=== PATIENT | male | born 1945 | race Caucasian/White ===

== ENCOUNTER 2019-06-09 19:22 | Observation (INO) | payer OTHER, MEDICARE, SELFPAY ==
[2019-06-09] VITALS (7 sets, daily range): BP systolic 99–131; BP diastolic 58–74; PULSE 62–71; RESP 14–17; TEMP 36.3–37.7; O2SAT 96–98
--- NOTE | 2019-06-09 19:30 | DI.RAD_ITS ---
EXAM: XR CHEST 2V PA LATERAL CLINICAL HISTORY: chest pain TECHNIQUE: 2D digital imaging was performed. COMPARISON: No exams were available for comparison FINDINGS: The heart is not enlarged. The lungs are clear and well expanded. No pleural effusion seen. Mediastin al contours appear intact. IMPRESSION: Normal chest
--- NOTE | 2019-06-09 19:58 | W.ED.GENAD ---
Discharge Plan Disposition Patient Disposition: [facility] INPATIENT Condition: Stable Discharge Details Chief Complaint: Chest Pain Clinical Impression: Chest pain, Gout Primary Care Provider: Unknown,Unknown ED Provider: Annette Yee Home Meds and New Rx's Prescriptions: No Action cyclobenzaprine 10 mg Tablet 10 mg PO TID PRNRF: 0 atorvastatin 80 mg Tablet 80 mg PO DAILY RF: 0 methylprednisolone 4 mg Tablet 4 mg PO DAILY RF: 0 cyanocobalamin (vitamin B-12) [Vitamin B-12] 1,000 mcg Tablet 1,000 mcg PO DAILY RF: 0 clopidogrel 75 mg Tablet 75 mg PO DAILY RF: 0 tamsulosin 0.4 mg Capsule 0.4 mg PO DAILY RF: 0 nitroglycerin 0.4 mg Tablet, Sublingual 0.4 mg SUBLINGUAL Q5M PRNRF: 0 omeprazole 20 mg Capsule,Delayed Release(Dr/Ec) 20 mg PO DAILY RF: 0 allopurinol 300 mg Tablet 300 mg PO DAILY RF: 0 colchicine 0.6 mg Tablet 0.6 mg PO DAILY RF: 0 Medical Decision Making Is a 74-year-old patient presenting for complaints of chest pain. Patient's history is predominantly provided by the as patient is pleasantly demented. Patient had chest pain throughout the better portion of the day beginning in the late morning. reports grimacing and clutching the left side of his chest. Patient grimacing throughout most of the day. Patient's pain did relieve for approximately 30 minutes in the afternoon. After pain returned did provide a nitroglycerin tablet, second tablet 5 minutes later neither relieving of pain. Patient denies any obvious radicular pain to the neck or arm. No back complaints. Patient was not vomiting, denies nausea currently. Patient was eating and drinking throughout the day but did not eat dinner this evening. Patient did not have any evident shortness of breath or increase in respiratory effort per the . No recent cough. No fevers or chills reported. Has been urinating and moving bowels normally. Patient is status post 3 stents placed on March 03 of this year and [facility]. Per the patient has had multiple emergency room visits to the [place] for complaints of chest pain. Patient has not been admitted for these chest pain complaints but discharged home to follow-up with cardiology. Patient has not had subsequent cardiology follow-up due to Covid virus and appointments being canceled. Patients reports he was to have a stress test but again this is been delayed. No evident diaphoresis. No obvious syncope or fainting. No clear unsteady gait. does report currently patient has left elbow swelling and right foot pain consistent with previous gout flares. Patient has been compliant with allopurinol. They did speak with patient's PCP Dr. Dumont of [place] who called in colchicine yesterday. Patient has been compliant with all of his medications and did take all of his medication doses today including his Plavix but did not take his aspirin as he typically doses this in the evening. Patient arrives via private car. Initial evaluation of the patient reveals normal vital signs. Initial temperature noted of 37.7 however when repeated 37.3. No reported fevers or chills at home. On physical exam patient is well-appearing. Patient did occasionally grimace with pain and indicates left side of his chest as site of pain and describes mild pressure. Patient is also complaining of left elbow and right foot pain. Both right elbow and foot are erythematous swollen and tender to the touch. Patient has a benign cardiac exam at this time, no murmurs, regular rate and rhythm. No JVD. No distal edema present. No rales or breath sound changes. Easy and unlabored breathing noted. Abdominal exam is benign. No abdominal pain with palpation. Bowel sounds are present all 4 quadrants. Obvious distention. Initial EKG reveals a heart rate of [address] sinus [address] No [address] segment changes. QTC of 423. This was reviewed with Dr. Phong Membreno. Initial labs including troponin and magnesium ordered as well as chest x-ray. Uric acid ordered in addition due to clinical suspicion of gout. Notes obtained from [place] for previous ER visits. When comparing today's [facility] there is a mild drop in patient's H&H. On his labs 04/20/19 patient had an H&H of 14.6 and 44.5 today patient's H&H are noted to be 11.4 and 34.5. Also of note kidney function is mildly worsened compared to previous labs. Patient was previously treated for chest pain during gout flare with colchicine, I am unsure if this was an effective treatment as patient had persistent chest pain complaints thereafter although patient has evidence of gouty flare at this time patient has no obvious pericarditis findings on his EKG. [facility] noted atypical chest pain. Patient's initial troponin is normal. Reevaluation of the patient reveals patient in no apparent distress. Although history is somewhat limited from this patient he has had multiple emergency room visits recently for chest pain. Patient was due to have outpatient cardiac follow-up which has been delayed due to Covid virus including stress testing per his . Given patient's recent MA with stent placement in February, intermittent chest pain complaints, grimacing chest pain noted today despite normal EKG and initial troponin patient's heart score is moderate and I will recommend admission at this time for stress testing. I did speak with the regarding her intentions and she is most comfortable with admission to the hospital at this time for further evaluation as patient has had intermittent and persistent chest pain complaints multiple ER visits and no identifiable cause of his chest pain. [facility] who [facility] admission to [facility]. Spoke with hospital regarding patient's admission. He will evaluate patient in the emergency room. Spoke with patient's as there is no noted CODE STATUS on patient's chart. She reports they have not filled out the CODE STATUS paperwork and at this time she intends for the patient to be a full code. HPI General Date/Time Provider Initiated Documentation: 06/09/19 19:25. HPI Narrative: This is a 74-year-old patient presenting to the emergency room for chest pain. Patient had left-sided chest pain which began this afternoon, did relieve for approximately 30 minutes then returned. Patient reports sharp left-sided chest pain. Patient denies any obvious radiating pain to neck or arm. Patient denies nausea, vomiting, dizziness or diaphoresis. Patient's history is primarily obtained per the as the patient has significant dementia. Patient reportedly had 3 stents placed in February on the at [facility] This [facility] who has been evaluated 3-4 times since his stents were placed for intermittent chest pain which per the is reportedly similar to today. Patient grimacing when experiencing chest pain. Per patient has had no significant increase in respiratory effort, cough or fevers. Patient denies any difficulty breathing or shortness of breath at this time. Of note patient has significant gout for the last several weeks. He had gout in his left knee which improved now has gout in his right great toe as well as his right elbow. Both his elbow and toe are erythematous and swollen obviously tender to the touch. Patient has a limping gait due to gout in his lower extremity. PCP did call in prescriptions for colchicine and patient has been compliant with allopurinol. Per his but otherwise appears steady and has no coordination changes. Speech clear and unchanged per . Patient did take all of his daily medications with the exception of his evening aspirin. does report that she gave nitro 0.4 mg 5 minutes apart x2 at approximately 4-4 30 this afternoon with no relief or effect on his chest pain. Since his stent placement in February patient has undergone both EKG and echo for complaints of his chest pain. Related Data Home Medications Medication Instructions Recorded Confirmed allopurinol 300 mg PO DAILY 06/09/19 06/09/19 atorvastatin 80 mg PO DAILY 06/09/19 06/09/19 clopidogrel 75 mg PO DAILY 06/09/19 06/09/19 colchicine 0.6 mg PO DAILY 06/09/19 06/09/19 cyanocobalamin (vitamin B-12) 1,000 mcg PO DAILY 06/09/19 06/09/19 [Vitamin B-12] cyclobenzaprine 10 mg PO TID PRN 06/09/19 06/09/19 methylprednisolone 4 mg PO DAILY 06/09/19 06/09/19 nitroglycerin 0.4 mg SUBLINGUAL Q5M PRN 06/09/19 06/09/19 omeprazole 20 mg PO DAILY 06/09/19 06/09/19 tamsulosin 0.4 mg PO DAILY 06/09/19 06/09/19 Allergies Allergy/AdvReac Type Severity Reaction Status Date / Time No Known Allergies Allergy Unverified 06/09/19 19:54 General Stated Complaint: Chest Pain MIGNON: 2 Review of Systems All systems reviewed & are unremarkable except as noted in HPI and below Constitutional Constitutional: Denies chills, Denies fatigue, Denies fever(s), Denies headache(s) and Denies malaise ENT Ears, Nose, Mouth, and Throat: Denies headache(s) Cardiovascular Cardiovascular: Reports chest pain, Denies diaphoresis, Denies syncope, Denies radiating jaw, neck or arm pain and Denies dyspnea Respiratory Respiratory: Denies cough, Denies dyspnea and Denies wheezing Gastrointestinal Gastrointestinal: Denies abdominal pain, Denies diarrhea, Denies nausea and Denies vomiting Neurologic Neurologic: Denies syncope and Denies headache(s) Endocrine Endocrine: Denies fatigue Allergic/Immunologic Allergic/Immunologic: Denies wheezing [facility] Social History Smoking/Tobacco Use Status: Never Alcohol Intake: never Substance use type: does not use Do you feel safe at home: Yes Do you feel safe in your relationship?: Yes Exam Narrative Exam Narrative: CONST: Healthy appearing patient. Well hydrated. Alert. Patient does intermittently grimace HENMT: Head nomocephalic, normal to inspection. Atraumatic. Hearing grossly normal. External ear canal no erythema or swelling. TM normal bilaterally. Nose normal to inspection. No rhinnorhea. Normal facial exam. Oral mucosa normal. Tounge normal. Dentition normal. Normal posterior oropharynx. Uvula midline. EYES: General normal appearance. Alignment normal. Eyelids normal. Conjunctiva normal. Sclera normal. PERRL. NECK: Normal visual inspection. FROM. No lymphadenopathy. Trachea midline. No Midline tenderness. CHEST: Normal insepection of the chest. No pain elicited with palpitation of chest RESP: Normal respiratory effort. Speaking full sentences. No cough. No wheezing. No retractions. Clear to auscaltation. Breath sound equal and present bilaterally. CARDIO: No JVD. Normal PMI. Regular Rate. Regular Rhythm. Normal peripheral pulses. GI: Normal inspection of abdomen. No distension. Soft. Nontender. Bowel sounds present in all 4 quadrants. No rebound. No gaurding. MUSCULOSKELETAL: Normal Gait. Distal neurovascularly intact. Sensation intact distally. Erythema and swelling noted focally around the left elbow with moderate tenderness, limited range of motion due to pain. No significant elbow effusion. Skin marked for future comparison. Erythema extends beyond the elbow joint into the distal upper arm and proximal forearm. Faint erythema, not well demarcated. mild warmth. Erythema mild warmth and mild swelling noted to the right base of the great toe. Both consistent with gout. Erythema of left knee with mild effusion. Nothing to indicate septic joint of the knee. SKIN: Normal. Dry. No rashes. See above NEURO: Alert and awake. Speech clear. PSYCH: Normal affect. Cooperative. Course Vital Signs Vital signs: Vital Signs Temperature 37.7 C H 06/09/19 19:35 Pulse 70 06/09/19 19:35 Respiratory Rate 16 06/09/19 19:35 Blood Pressure 131/74 06/09/19 19:35 Pulse Oximetry 96 06/09/19 19:35 Temperature 37.3 C 06/09/19 19:40 Temperature Source Oral 06/09/19 19:40 Pulse 70 06/09/19 19:35 Respiratory Rate 14 06/09/19 19:37 Respiratory Effort 06/09/19 19:37 Respiratory Depth Normal 06/09/19 19:37 Respiratory Pattern Normal 06/09/19 19:37 Blood Pressure 131/74 06/09/19 19:35 Pulse Oximetry 96 06/09/19 19:35 Oxygen Delivery Method Room Air 06/09/19 19:35 Oxygen Flow Rate 0 06/09/19 19:35 Pain Level 4 06/09/19 19:29
[2019-06-09] MEDS: Aspirin 81 MG CHEW (20:06)
--- NOTE | 2019-06-09 20:13 | NUR.NOTE ---
Hx of stents placed at [facility] in FEB, per , pt has had intermittent CP since they were placed. [facility] and a stress since they were placed. Today pt reported chest pain, describes as heaviness, gave him nitro x 2. Hx of alzheimers and gout. Pt given Rx for colchicine and methylprednisolone today, has not yet taken. Redness and swelling to left elbow, right foot. Difficult stick, #20 to LAC, labs drawn. SR on monitor. Denies cough, SOB, N/V, fevers.
[2019-06-09 20:24] LABS: ALT 29 U/L (16-63); AST 24 U/L (15-37); Alkaline Phosphatase 82 U/L (46-116); Anion Gap 10.2 mmol/L (3-11); BUN 24 mg/dL (7-18); Bilirubin, Total 0.8 mg/dL (0.2-1.0); CO2 25.8 mmol/L (21.0-32.0); CREATININE 1.52 mg/dL (0.70-1.30); Calcium 9.1 mg/dL (8.5-10.1); Chloride 101 mmol/L (98-107); Estimated GFR 44.93 (mL/min/1.73m2); Glucose 104 mg/dL (74-106); Potassium 3.4 mmol/L (3.5-5.1); Sodium 137 mmol/L (136-145)
[2019-06-09 20:27] LABS: Troponin I < 0.05 ng/Ml (<0.06)
[2019-06-09 20:34] LABS: Abs Immature Grans 0.01 k/cumm (0.0-0.09); Absolute Basophil Count 0.01 k/cumm (0.0-0.2); Absolute Lymphocyte Count 0.96 k/cumm (1.2-3.4); Absolute Monocyte Count 0.94 k/cumm (0.11-0.7); Absolute Neutrophil Count 4.34 k/cumm (1.2-6.7); Basophils % 0.2; Eosinophils % 1.6; HCT 34.5 % (40.0-50.0); HGB 11.4 g/dL (13.5-17.5); Immature Grans % 0.2 %; Lymphocytes % 15.1; Mean Corpuscular Volume 93.8 fL (80-95); Mean Platelet Volume 9.8 fL (8.0-11.0); Monocytes % 14.8; Neutrophils % 68.1; Platelet Count 249 x1000/uL (130-400); RBC 3.68 m/cumm (4.50-6.00); RBC Distribution Width 12.3 % (11.8-14.1); White Blood Cell Count 6.36 k/cumm (4.4-10.8)
--- NOTE | 2019-06-09 20:53 | DI.VRAD_ITS ---
PROCEDURE INFORMATION: Exam: XR Chest, 2 Views Exam date and time: 06/09/2019 8:46 PM Age: 74 years old Clinical indication: Other: Chest pain TECHNIQUE: Imaging protocol: XR of the chest Views: 2 views. COMPARISON: No relevant prior studies available. FINDINGS: Lungs: Lungs are adequately inflated and symmetric. No focal consolidation or pulmonary edema. Pleural space: No pleural effusion. No pneumothorax. Heart/Mediastinum: Cardiomediastinal contours within normal limits. Bones/joints: No acute osseous finding. Scattered senescent changes of the osseous structures. IMPRESSION: No acute cardiopulmonary finding. Dictated and Authenticated by: Adolfo Culp MD. Ordering:CAROLYN Bryant MD
--- NOTE | 2019-06-09 22:00 | HPE_ITS ---
Date of service: 06/09/19 Time of Service: 22:00 Assessment and Plan Assessment and plan (1) Chest pain: Status: Acute Assessment and plan: CP. Unclear, and dementia makes evaluation yet more difficult. Certainly has known CAD but no evidence today (or on several recent ER visits) of ACS. Probably best to try to stress but my sense is that this is low probability ACS. I do note the low grade fever and inflammatory changes of the elbow. I think gout is unlikely given uric acid of 4.0, and appropriate prophylaxis. Will treat as cellulitis, doubt septic joint without effusion. History of Present Illness History of Present Illness Chief Complaint: CP Narrative: 74 male with dementia and h/o CAD, s/p LAD stent 03/08. [facility]. Reportedly a stress test was to be scheduled but has been delayed. In any case comes to ER tonight with vague story of CP, no apparent relation to activity, no associated symptoms and no radiation. In ER findings of note for negative CXR, normal EKG and negative troponin. Admitted to complete r/o and for possible stress test. Additional findings of low grade fever (37.7 then 37.3), normal white count and area of erythema overlying left elbow which states (to ER) has been ascribed to gout. Note uric acid of 4.0. Review of Systems All systems reviewed & are unremarkable except as noted in HPI and below PFSH Social History Smoking/Tobacco Use Status: Never Alcohol Intake: never Substance use type: does not use Do you feel safe at home: Yes Do you feel safe in your relationship?: Yes Meds Home Medications and Allergies Home Medications Medication Instructions Recorded Confirmed Type allopurinol 300 mg PO DAILY 06/09/19 06/09/19 History atorvastatin 80 mg PO DAILY 06/09/19 06/09/19 History clopidogrel 75 mg PO DAILY 06/09/19 06/09/19 History colchicine 0.6 mg PO DAILY 06/09/19 06/09/19 History cyanocobalamin (vitamin B-12) 1,000 mcg PO DAILY 06/09/19 06/09/19 History [Vitamin B-12] cyclobenzaprine 10 mg PO TID PRN 06/09/19 06/09/19 History methylprednisolone 4 mg PO DAILY 06/09/19 06/09/19 History nitroglycerin 0.4 mg SUBLINGUAL Q5M PRN 06/09/19 06/09/19 History omeprazole 20 mg PO DAILY 06/09/19 06/09/19 History tamsulosin 0.4 mg PO DAILY 06/09/19 06/09/19 History Allergies Allergy/AdvReac Type Severity Reaction Status Date / Time No Known Allergies Allergy Unverified 06/09/19 19:54 Exam Narrative Exam Narrative: 108/63, 70, 16, 37.3, 98% RA. HEENT atraumatic; neck supple; l ungs clear; heart RRR w/o MRG, no chest wall tenderness or pain with resisted adduction of LUE; abdomen soft and NT; extremities trace pedal edema, pulse 2+/=, there is faint erythema overlying left elbow to total extent of about 8 cm, with accompanying warmth and painful PROM; neuro Ox1, moves all 4s. Results Labs Result diagrams: 06/09/19 19:54 06/09/19 19:54 Labs: Laboratory Results - last 24 hr 06/09/19 06/09/19 06/09/19 19:54 19:54 19:59 WBC 6.36 RBC 3.68 L Hgb 11.4 L Hct 34.5 L MCV 93.8 MCH 31.0 MCHC 33.0 RDW 12.3 Plt Count 249 MPV 9.8 Immature Gran % 0.2 Neutrophils % 68.1 Lymphocytes % 15.1 Monocytes % 14.8 Eosinophils % 1.6 Basophils % 0.2 Absolute Neutrophils 4.34 Absolute Lymphocytes 0.96 L Absolute Monocytes 0.94 H Absolute Eosinophils 0.10 Absolute Basophils 0.01 Sodium 137 Potassium 3.4 L Chloride 101 Carbon Dioxide 25.8 Anion Gap 10.2 BUN 24 H Creatinine 1.52 H Estimated GFR/1.73 m2 44.93 Glucose 104 Uric Acid 4.0 Calcium 9.1 Magnesium 2.0 Total Bilirubin 0.8 AST 24 ALT 29 Alkaline Phosphatase 82 Troponin I < 0.05 Total Protein 8.0 Albumin 3.0 L Last Vital Signs Temp 37.3 C 06/09/19 19:40 Pulse 70 06/09/19 21:54 Resp 16 06/09/19 21:54 BP 108/63 06/09/19 21:54 Pulse Ox 98 06/09/19 21:54 COVID-19 Screening Recent travel in the [place] within the last 8 weeks?: No Recent out of the country travel within the last 8 weeks?: No Exposure or possible exposure to illness during travel?: No Had IN PERSON contact w/suspected or confirmed C-19 person: No Have you had the following symptoms in the past few days?: No
[2019-06-09 22:51] LABS: Troponin I < 0.05 ng/Ml (<0.06)
[2019-06-09] MEDS: Cephalexin 500 MG CAP PO (23:38)
[2019-06-10 01:42] LABS: Bilirubin Negative (Negative); Blood Small (Negative); Clarity Clear (Clear); Glucose Negative (Negative); Ketones Negative (Negative); Leukocyte Esterase Negative (Negative); Nitrite Negative (Negative); Specific Gravity 1.025 (1.005-1.025); Urobilinogen 0.2 EU/dL (Up TO 0.2)
[2019-06-10 01:45] LABS: Epithelial Cells Few HPF (Negative); WBC Negative HPF (0-5)
[2019-06-10 01:46] LABS: Bacteria Rare HPF (Negative); C & S Indicated? No; Casts Negative LPF (Negative); Crystals Negative HPF (Negative); Mucus Negative (Negative)
[2019-06-10 06:57] LABS: Troponin I < 0.05 ng/Ml (<0.06)
[2019-06-10 07:35] VITALS: BP 115/67; PULSE 63; RESP 18; TEMP 37.2; O2SAT 97
[2019-06-10] MEDS: Tamsulosin 0.4 MG CAPCR PO (08:55)
[2019-06-10] MEDS: Cephalexin 500 MG CAP PO (08:55)
[2019-06-10] MEDS: Colchicine 0.6 MG TAB PO (08:55)
[2019-06-10] MEDS: Omeprazole 20 MG CAPCR PO (08:55)
[2019-06-10] MEDS: Clopidogrel 75 MG TAB PO (08:55)
[2019-06-10] MEDS: methylPREDNISolone 4 MG TAB PO (08:55)
[2019-06-10 09:51] LABS: C-Reactive Protein 8.13 mg/dL (0.0-0.3)
[2019-06-10 10:03] LABS: ESR 65 mm/hr (1-20)
--- NOTE | 2019-06-10 10:28 | OCONE_ITS ---
Date of service: 06/10/19 Time of Service: 10:28 History of Present Illness History of Present Illness Chief Complaint: Left elbow pain Narrative: Chris is a 74-year-old who presented to the emergency department yesterday with a chief complaint of chest pain. He does have dementia and the majority of the history is provided by the . This history was obtained mostly from previous notes as his reliability with history was minimal. Chris does report having pain and swelling to the left elbow. He is unclear if he has had gout in his elbow before but does report having gout in the toes in the knees. He also feels that he is having gout in his right great toe. He takes allopurinol at baseline. Per the previous notes and Chris, it has been about a week or so of increasing left elbow pain, but he is uncertain when it exactly st arted. He denies fevers or chills. He has had difficulties moving the left elbow. He reports knee pain in the right knee although notes state that the left knee was most involved before. He denies any significant pain of the right great toe at this time. He previously had cardiac stents placed in February of this year and [facility] [place] [facility]. He is awaiting a stress test and cardiology consult. His uric acid was normal in the emergency department. Both his sed rate and CRP are elevated at 60 and 8 respectively. He is afebrile. He denies trauma. He denies skin breakdown or lacerations or abrasions. He denies any sick contacts or recent illness. His PCP just started him on colchicine as well. Consults Consult date: 06/10/19 Requesting physician: [facility] Consult Reason Left elbow pain, and question of infection Assessment and Plan Assessment and plan (1) Cellulitis of left elbow: Status: Acute Assessment and plan: Chris is a 74-year-old who has notable swelling, erythema, and pain of the left elbow. This does overlie the olecranon bursa however, I do not feel a fluctuant olecranon bursitis. This could be a spectrum of suppurative olecranon bursitis versus a localized cellulitis and it would be difficult to know which 1 is the primary source. Nevertheless, I do not palpate any effusion. He does allow pronation supination and some gentle motion of the elbow without significant pain. An infected elbow is possible, although very unlikely. He does have this history of gout which I think is active in the toe and has been active in the knees but I do not think is responsible for the current process of the left elbow. Without a palpable fluctuant area or a palpable effusion, I do not think we need to aspirate quite yet. The most direct way to aspirate is lateral and this is right where he has the majority of his induration and erythema. I would hate to go through an active cellulitic process and then into a noninvolved joint. He was started on Keflex which is a reasonable antibiotic choice for the most common organisms. However, given that he is a current inpatient, I would transition him to an IV antibiotic simply for its better efficacy and availability while he is here as an inpatient. We may use compression as well as ice for the left elbow. The elbow should be padded so there is no hard contact around the olecranon or the prominences of the elbow, especially given his slight stature. He does have an elevated CRP and sed rate which may be helpful for trending in the near future. At this point, I will reexamine him in the morning and if we feel there is been no progress or any worsening, elbow aspiration may be attempted at that time, although Chris would prefer to avoid that. (2) Gout: Status: Acute Assessment and plan: He has a history of gout and likely has a gouty process going on for the right toe. I do not see any involvement of the knee. We should continue with the allopurinol but also consider increasing some type of anti-inflammatory component. He has been started on methylprednisolone in the recent history and we could go up on this dosing to provide him an acute steroid treatment. An anti-inflammatory, such as ketorolac or naproxen, could be administered but with caution given his history of coronary artery disease as well as his acute chest complaints. I will defer this decision to the hospitalist team. Qualifiers: Gout site: toe Gout etiology: unspecified cause Chronicity: chronic Laterality: right Presence of tophus: without tophus Qualified Code(s): [id number].[id number] - Chronic gout, unspecified, without tophus (tophi) Review of Systems All systems reviewed & are unremarkable except as noted in HPI and below (But limited by dementia) [facility] Medical History (Updated 06/10/19 @ 10:42 by Son Augustin MD) BPH (benign prostatic hyperplasia) (Chronic) CAD (coronary artery disease) (Chronic) Chest pain (Acute) Dementia (Chronic) GERD (gastroesophageal reflux disease) (Chronic) Gout (Acute) Surgical History (Updated 06/10/19 @ 10:37 by Son Augustin MD) Stented coronary artery (Acute) Social History Smoking/Tobacco Use Status: Never Alcohol Intake: never Substance use type: does not use Do you feel safe at home: Yes Do you feel safe in your relationship?: Yes Exam Narrative Exam Narrative: Evaluation of the left arm demonstrates an area of induration and erythema over the posterior aspect of the elbow. There is an area marked on the arm itself which seems to be much wider than the actual area of erythema. T his area is focused over the posterior aspect of the elbow, primarily involving the olecranon and the areas around it. There is no area of fluctuance which I can palpate. There is no crepitus with palpation. There is no pain away from this area either distally into the forearm and wrist and hand or proximally into the upper arm and shoulder. No palpable adenopathy. Further evaluation of the left arm is really limited by his lack of cooperation with the examination. He stays relatively stiff and not cooperative with passive motion testing. Active motion of the left elbow does cause pain. However, pronation and supination does not seem to bother him. Passively he allows me to pronate and supinate the left elbow with minimal discomfort. He also allows me to passively extend the left elbow, when he is not counteracting me, and this does not seem to cause pain. Passive flexion causes pain. All this pain is reported posteriorly although he has a very difficult time specifying where. Manual palpation of the soft spot laterally has pain given overlying induration but I do not feel any effusion. Palpation of the joint surface medially and anteriorly, which is possible given his thin body habitus, does not reveal any effusion. No significant pain with palpation of the joint lines. The skin overlying the elbow and of the left arm shows no defects such as abrasions or lacerations. Palpable radial pulse. Sensation intact light touch over the median, radial, ulnar nerves. Evaluation of the right leg shows no erythema. There is some swelling to the right great toe. There is no effusion of the right knee. No pain to palpation of the right knee. Gentle passive and active range of motion of the right knee does not elicit any pain. Const General: cooperative, healthy appearing, comfortable and no acute distress Nutritional Appearance: average body habitus Orientation: alert and awake Psych Appearance: grossly normal Mood: congruent mood Attitude: cooperative Results Last Vital Signs Temp 37.2 C 06/10/19 07:35 Pulse 63 06/10/19 07:35 Resp 18 06/10/19 07:35 BP 115/67 06/10/19 07:35 Pulse Ox 97 06/10/19 07:35 Labs Result diagrams: 06/09/19 19:54 06/09/19 19:54 Labs: Laboratory Results - last 24 hr 06/09/19 06/09/19 06/09/19 19:54 19:54 19:59 WBC 6.36 RBC 3.68 L Hgb 11.4 L Hct 34.5 L MCV 93.8 MCH 31.0 MCHC 33.0 RDW 12.3 Plt Count 249 MPV 9.8 Immature Gran % 0.2 Neutrophils % 68.1 Lymphocytes % 15.1 Monocytes % 14.8 Eosinophils % 1.6 Basophils % 0.2 Absolute Neutrophils 4.34 Absolute Lymphocytes 0.96 L Absolute Monocytes 0.94 H Absolute Eosinophils 0.10 Absolute Basophils 0.01 ESR Sodium 137 Potassium 3.4 L Chloride 101 Carbon Dioxide 25.8 Anion Gap 10.2 BUN 24 H Creatinine 1.52 H Estimated GFR/1.73 m2 44.93 Glucose 104 Uric Acid 4.0 Calcium 9.1 Magnesium 2.0 Total Bilirubin 0.8 AST 24 ALT 29 Alkaline Phosphatase 82 Troponin I < 0.05 C-Reactive Protein Total Protein 8.0 Albumin 3.0 L Urine Color Urine Clarity Urine pH Ur Specific [place] Urine Protein Urine Ketones Urine Blood Urine Nitrite Urine Bilirubin Urine Urobilinogen Ur Leukocyte Esterase Urine RBC Urine WBC Ur Epithelial Cells Urine Crystals Urine Bacteria Urine Casts Urine Mucus Ur Culture Indicated? Urine Glucose 06/09/19 06/10/19 06/10/19 22:30 01:15 06:03 WBC RBC Hgb Hct MCV MCH MCHC RDW Plt Count MPV Immature Gran % Neutrophils % Lymphocytes % Monocytes % Eosinophils % Basophils % Absolute Neutrophils Absolute Lymphocytes Absolute Monocytes Absolute Eosinophils Absolute Basophils ESR Sodium Potassium Chloride Carbon Dioxide Anion Gap BUN Creatinine Estimated GFR/1.73 m2 Glucose Uric Acid Calcium Magnesium Total Bilirubin AST ALT Alkaline Phosphatase Troponin I < 0.05 < 0.05 C-Reactive Protein 8.13 H Total Protein Albumin Urine Color Yellow Urine Clarity Clear Urine pH 5.0 Ur Specific [place] 1.025 Urine Protein 100 H Urine Ketones Negative Urine Blood Small H Urine Nitrite Negative Urine Bilirubin Negative Urine Urobilinogen 0.2 Ur Leukocyte Esterase Negative Urine RBC 5-10 H Urine WBC Negative Ur Epithelial Cells Few Urine Crystals Negative Urine Bacteria Rare Urine Casts Negative Urine Mucus Negative Ur Culture Indicated? No Urine Glucose Negative 06/10/19 06:03 WBC RBC Hgb Hct MCV MCH MCHC RDW Plt Count MPV Immature Gran % Neutrophils % Lymphocytes % Monocytes % Eosinophils % Basophils % Absolute Neutrophils Absolute Lymphocytes Absolute Monocytes Absolute Eosinophils Absolute Basophils ESR 65 H Sodium Potassium Chloride Carbon Dioxide Anion Gap BUN Creatinine Estimated GFR/1.73 m2 Glucose Uric Acid Calcium Magnesium Total Bilirubin AST ALT Alkaline Phosphatase Troponin I C-Reactive Protein Total Protein Albumin Urine Color Urine Clarity Urine pH Ur Specific [place] Urine Protein Urine Ketones Urine Blood Urine Nitrite Urine Bilirubin Urine Urobilinogen Ur Leukocyte Esterase Urine RBC Urine WBC Ur Epithelial Cells Urine Crystals Urine Bacteria Urine Casts Urine Mucus Ur Culture Indicated? Urine Glucose
--- NOTE | 2019-06-10 10:30 | DI.NM_ITS ---
APPROVED REPORT Exam: Pharmacologic Patient Location: In-Patient Room/Bed: Stress Nurse: Malgorzata Partida RN BMI: 0 Baseline Rhythm: Sinus Rhythm Comment: PVCs. Indications: Known CAD. Recurrent chest pain. LAD stent 02/2019. Medical History Medical History: CAD s/p [place], CAD s/p stent x3 Cardiac Medications: Atorvastatin. Clopidogrel. Nitroglycerin. Omeprazole. , Cardiac Risk Factors: Hyperlipidemia. CAD. LAD stent. Pretest Chest Pain Characteristics: Non-exertional Chest pain Exercise History: Indeterminate Lung Sounds: Clear to auscultation Heart Sounds: Regular Stress Test Details Test: Pharmacologic stress testing performed using 0.4 mg of regadenoson per 5 mL given IV over 10 s econds. Nuclear Acquisition: Rest Tc-99m/Stress Tc-99m 1 day Rest Isotope: Tc-99m Sestamibi. Dose: 11.0 Date: 06/10/2019 Injection Time: 1030 Stress Isotope: Tc-99m Sestamibi. Dose: 34.3 Date: 06/10/2019 Injection Time: 1235 HR Resting HR Supine: 69 bpm Max Heart Rate (APMHR): 145 bpm Target HR (85% APMHR): 123 bpm Max HR Achieved: 104 bpm % of APMHR: 71 Recovery HR: 98 bpm Comment: Regadenoson stress test. BP Resting BP Supine: 118/70 mmHg Max BP: 124/62 mmHg Recovery BP: 120/68 mmHg Comment: Regadenoson stress test. ECG Resting ECG: Sinus Rhythm Stress ECG: Sinus Rhythm Arrhythmia: VPC's Comment: Intermittent ventricular trigeminy. Frequent VPCs. Recovery ECG: Sinus Rhythm Recovery Arrhythmia: Frequent VPCs Clinical Stress Symptoms: Pt experienced no significant symptoms post Regadenoson injection. Stress ECG Conclusion 1. This is a pharmacological stress test. 2. The patient had no significant symptoms during the stress portion of this exam. 3. There is no evidence of ischemia on the ECG portion of this exam. Stress Test Summary STAGE HR BP Symptoms NOTES Supine 69 118/70 1 min post Lexiscan injection 104 120/60 3 min post Lexiscan injection 101 124/62 9 min post Lexiscan injection 100 120/68 MPI Conclusion The ejection fraction was 62% with stress. There were no wall motion abnormalities. Interpretation of the study is limited by significant bowel uptake. There is a small fixed perfusion defect of the inferior wall without any adriane-infarct ischemia.
--- NOTE | 2019-06-10 10:30 | PDOC.CMIN ---
- If Service Date Differs Date of service: 06/10/19 Time of Service: 10:30 Care Management Initial Assess REASON FOR HOSPITALIZATION:: Chest Pain PAST MEDICAL HISTORY/PAST SURGICAL HISTORY:: CAD PREVIOUS FUNCTIONAL STATUS/SOCIAL/FAMILY SUPPORTS:: Chris lives with his Jen and his son on [address] in [facility]. Chris has had dementia for the past 3 years and has been getting progressively worse according to Jen. He is a and usually gets his medical care at the [facility]. He is independent with ADLs and remains active. They receive no community services at this time. CURRENT FUNCTIONAL STATUS:: Chris was sitting up on the side of the bed when CM met with him. He was compalining of left knee pain and was observed rubbing it repeatedly. He also has pain in his right great toe and left elbow. Chris has dementia and was vague in his responses with CM. He was able to share where he lived and the fact that his son lives with him (confirmed by his ). He is scheduled to have a stress test today and may be discharged later. Has patient been provided with information about the portal?: No Did the patient sign up for the portal?: No (dementia) CODE STATUS:: Full Code INSURANCE COVERAGE / FINANCIAL ISSUES:: Medicare CURRENT HOME/COMMUNITY SERVICES/EQUIPMENT:: None currently [facility] POTENTIAL DISCHARGE NEEDS:: Follow up with PCP at the [facility] and possibly cardiology PATIENT/FAMILY EDUCATION NEEDS:: Discharge plan, limitations, follow up plan, Ask Me Three. TRANSPORTATION:: via private vehicle with family PLAN:: Chris will likely be discharged home with no new services. He will follow up with his provider at the [facility] and his discharge plan of care. CM will continue to support patient, family and discharge planning needs.
--- NOTE | 2019-06-10 10:34 | PHA.REVIEW ---
Pharmacy Admission Review - Admission Clinical Review (Last Reviewed 06/09/19 @ 22:08 by Mitesh Paul MD) Chest pain (Acute) No Known Allergies Allergy (Unverified 06/09/19 19:54) Height 6 ft Weight 81.5 kg Chest Pain, Left Elbow cellulitis - Comments Comments/Follow Ups: MPI stress test today, Orthopedic consult - Renal Dosing Renal Dosing: BUN 24 mg/dL (7-18) H 06/09/19 19:54 Creatinine 1.52 mg/dL (0.70-1.30) H 06/09/19 19:54 Medications needing adjustments: Reviewed (CrCl~46ml/min) List of meds needing interventions: No med adjustments - Anticoagulation Anticoagulation: Hgb 11.4 g/dL (13.5-17.5) L 06/09/19 19:54 Hct 34.5 % (40.0-50.0) L 06/09/19 19:54 Plt Count 249 x1000/uL (130-400) 06/09/19 19:54 Creatinine 1.52 mg/dL (0.70-1.30) H 06/09/19 19:54 DVT Prohphylaxis: Reviewed (None-will ask MD) Therapeutic Anticoagulation: N/A - Opiate Usage Evaluate Pain Scale/Pains Meds: N/A - Relevant Labs ESR 65 mm/hr (1-20) H 06/10/19 06:03 Sodium 137 mmol/L (136-145) 06/09/19 19:54 Potassium 3.4 mmol/L (3.5-5.1) L 06/09/19 19:54 Chloride 101 mmol/L (98-107) 06/09/19 19:54 Magnesium 2.0 mg/dL (1.8-2.4) 06/09/19 19:54 C-Reactive Protein 8.13 mg/dL (0.0-0.3) H 06/10/19 06:03 Electrolytes, C-Reactive P, ESR: Reviewed (Elevated Sed rate, C-reactive protein-oral steroids, colchicine for gout of Right toe, Potassium will need slight replacement) - DM Control DM Control: Glucose 104 mg/dL (74-106) 06/09/19 19:54 Insulin Dosing: N/A - Heart Failure/AR Heart Failure/AR: Troponin I < 0.05 ng/Ml (<0.06) 06/10/19 06:03 EF%, SHAYAN's, B-Blockers, Diuretics: N/A (no cardiac meds except Plavix, troponin negative x 3) - BP Control BP Control: Blood Pressure 115/67 Blood Pressure 124/69 Blood Pressure 124/69 If elevated: N/A - Qtc Review If Elevated: Reviewed (qtc 426) - IV to PO Switch IV Medications: Reviewed (Oral Cephalexin changed to IV Cefazolin today) - Home Meds Home Med List reviewed: Reviewed Relevent Home Meds Not ordered & why?: Allopurinol, Vit B-12, NTG SL-Vague description of chest pain, dementia - Comments Comments/Follow Ups: [facility] with dementia[facility], [facility] st[facility] Feb 2019, takes Plavix, History of gout in elbow/toes/knees. No Micro to evaluate at this time, no pain reported although nursing assessment does state pain to left elbow, slightly red and swollen. changed oral Cephalexin to IV Cefazolin. Allopurinol was ordered, then dc'd, he is on Colchicine. Extra dose of Methylprednisolone this morning. Watch for results of MPI Antibiotic Activity - Antibiotic Information Antibiotic Review Info: Treating Cellulitis-Cephalexin oral changed to IV Cefazolin, no Micro collected at this time
[2019-06-10] MEDS: Regadenoson 0.4 MG/5 ML SYR IVP (13:09)
--- NOTE | 2019-06-10 13:51 | W.PM.PROGNOT ---
Date of Service Date of service: 06/10/19 Time of Service: 08:00 Assessment and Plan Assessment and plan (1) Chest pain: Status: Acute Assessment and plan: No recurrence. Flat troponins. Stress test showing scar but no active ischemia. Medical management for further risk reduction compromised by bradycardia and hypotension. I am going to try starting low-dose beta-rica and monitor blood pressure and pulse response. Continue dual antiplatelet therapy and statin. (2) CAD (coronary artery disease): Status: Chronic Assessment and plan: Although he had stenting he continues to have significant residual disease. Management as above. (3) Cellulitis of left elbow: Status: Acute Assessment and plan: Gout versus cellulitis on the differential, less likely set bursitis or arthritis. Symptom treatment as suggested by Dr. Augustin with increased methylprednisolone. I prefer not to use NSAIDs given his heart disease. Mechanical treatment with compression and ice as needed. Continue antibiotics but switch to parenteral route and follow clinical response. (4) Gout: Status: Chronic Assessment and plan: Active in his toe, might be the issue with his left elbow as well. Continue allopurinol, colchicine and methylprednisolone. Monitor response. Qualifiers: Chronicity: chronic Gout etiology: unspecified cause Gout site: toe Laterality: right Presence of tophus: without tophus Qualified Code(s): [id number].9XX0 - Chronic gout, unspecified, without tophus (tophi) (5) Normocytic anemia: Status: Acute Assessment and plan: Mild. I am deferring work-up. This can be [facility] with [facility]. Recheck blood count tomorrow. (6) Hypokalemia: Status: Acute Assessment and plan: Mild and asymptomatic. Recheck labs tomorrow. Subjective Subjective Interval history since last seen: Mr. Anthony has no spontaneous complaints. When questioned about his elbow he acknowledges it is uncomfortable particularly if he moves it. Denies any further chest pain. History is not reliable because of his dementia. He does not know where he is or the date. He is not sure why he is here. [facility] records reviewed, three-vessel disease on coronary angiography February 2019 with drug-eluting stent to LAD lesion. Dual antiplatelet therapy initiated. He had been on long-acting oral nitrate, ARB and beta-rica prior to his PCI, but all medications besides the dual antiplatelet therapy were stopped because of low blood pressure and bradycardia. Limited records from the [facility] obtained, it looks like colchicine and methylprednisolone are standing medications for as needed use of flares of his known gout. He has not been agitated. He denies any abdominal pain or difficulty urinating but again history is unreliable. Exam Narrative Exam Narrative: Lying in bed is in no acute distress with his left elbow flexed and held against his side. He prefers not to move it. Telemetry has shown predominantly sinus rhythm but frequent PVCs. Neck veins are flat. Lungs clear. Mostly regular heart rhythm with occasional ectopic beat, no S3-S4 or murmur. Nontender abdomen with normal bowel sounds. He has no pitting edema at the ankles with good pulses. Left elbow has erythema on the extensor surface around the elbow area and extending distally. There is some induration on the extensor forearm. He has exquisite tenderness to palpation over the olecranon but no fluctuance and no effusion present. He has discomfort with my attempts at pronation supination and flexion extension with voluntary guarding but subsequent exam by Dr. Augustin showed better range of motion. Objective Objective Clinical Data: Abnormal lab results 06/09/19 06/09/19 06/10/19 Range/Units 19:54 19:54 01:15 RBC 3.68 L (4.50-6.00) m/cumm Hgb 11.4 L (13.5-17.5) g/dL Hct 34.5 L (40.0-50.0) % Absolute Lymphocytes 0.96 L (1.2-3.4) k/cumm Absolute Monocytes 0.94 H (0.11-0.7) k/cumm ESR (1-20) mm/hr Potassium 3.4 L (3.5-5.1) mmol/L BUN 24 H (7-18) mg/dL Creatinine 1.52 H (0.70-1.30) mg/dL C-Reactive Protein (0.0-0.3) mg/dL Albumin 3.0 L (3.4-5.0) g/dL Urine Protein 100 H (Negative) mg/dL Urine Blood Small H (Negative) Urine RBC 5-10 H (0-2) HPF 06/10/19 06/10/19 Range/Units 06:03 06:03 RBC (4.50-6.00) m/cumm Hgb (13.5-17.5) g/dL Hct (40.0-50.0) % Absolute Lymphocytes (1.2-3.4) k/cumm Absolute Monocytes (0.11-0.7) k/cumm ESR 65 H (1-20) mm/hr Potassium (3.5-5.1) mmol/L BUN (7-18) mg/dL Creatinine (0.70-1.30) mg/dL C-Reactive Protein 8.13 H (0.0-0.3) mg/dL Albumin (3.4-5.0) g/dL Urine Protein (Negative) mg/dL Urine Blood (Negative) Urine RBC (0-2) HPF Vital Signs Temperature 37.2 C 06/10/19 07:35 Temperature Source Temporal Artery Scan 06/10/19 07:35 Pulse 63 06/10/19 07:35 Pulse Rhythm Regular 06/10/19 11:13 Respiratory Rate 18 06/10/19 07:35 Respiratory Effort Non-Labored 06/10/19 11:13 Respiratory Depth Normal 06/10/19 11:13 Respiratory Pattern Normal 06/10/19 11:13 Blood Pressure 115/67 06/10/19 07:35 Pulse Oximetry 97 06/10/19 07:35 Oxygen Delivery Method Room Air 06/10/19 07:35 Oxygen Flow Rate 0 06/10/19 07:35 Pain Level 0 06/10/19 07:35 Intake & Output 06/09/19 06/10/19 06/10/19 23:59 11:59 23:59 Output Total 900 / 1200 300 / 1200 Balance -900 / -1200 -300 / -1200 Weight 81.5 kg Output: Urine 900 / 1200 300 / 1200 Other: Urine Color Light So Urine Appearance Clear Comment mixed with stool. Stool Size Large Stool Characteristics Soft Formed Brown Voiding Methods Toilet Laboratory Results WBC 6.36 k/cumm (4.4-10.8) 06/09/19 19:54 RBC 3.68 m/cumm (4.50-6.00) L 06/09/19 19:54 Hgb 11.4 g/dL (13.5-17.5) L 06/09/19 19:54 Hct 34.5 % (40.0-50.0) L 06/09/19 19:54 MCV 93.8 fL (80-95) 06/09/19 19:54 MCH 31.0 pg (27.0-33.0) 06/09/19 19:54 MCHC 33.0 g/dL (32.0-36.0) 06/09/19 19:54 RDW 12.3 % (11.8-14.1) 06/09/19 19:54 Plt Count 249 x1000/uL (130-400) 06/09/19 19:54 MPV 9.8 fL (8.0-11.0) 06/09/19 19:54 Immature Gran % 0.2 % 06/09/19 19:54 Neutrophils % 68.1 06/09/19 19:54 Lymphocytes % 15.1 06/09/19 19:54 Monocytes % 14.8 06/09/19 19:54 Eosinophils % 1.6 06/09/19 19:54 Basophils % 0.2 06/09/19 19:54 Absolute Neutrophils 4.34 k/cumm (1.2-6.7) 06/09/19 19:54 Absolute Lymphocytes 0.96 k/cumm (1.2-3.4) L 06/09/19 19:54 Absolute Monocytes 0.94 k/cumm (0.11-0.7) H 06/09/19 19:54 Absolute Eosinophils 0.10 k/cumm (0.0-0.7) 06/09/19 19:54 Absolute Basophils 0.01 k/cumm (0.0-0.2) 06/09/19 19:54 ESR 65 mm/hr (1-20) H 06/10/19 06:03 Sodium 137 mmol/L (136-145) 06/09/19 19:54 Potassium 3.4 mmol/L (3.5-5.1) L 06/09/19 19:54 Chloride 101 mmol/L (98-107) 06/09/19 19:54 Carbon Dioxide 25.8 mmol/L (21.0-32.0) 06/09/19 19:54 Anion Gap 10.2 mmol/L (3-11) 06/09/19 19:54 BUN 24 mg/dL (7-18) H 06/09/19 19:54 Creatinine 1.52 mg/dL (0.70-1.30) H 06/09/19 19:54 Estimated GFR/1.73 m2 44.93 (mL/min/1.73m2) 06/09/19 19:54 Glucose 104 mg/dL (74-106) 06/09/19 19:54 Uric Acid 4.0 mg/dL (3.5-7.2) 06/09/19 19:59 Calcium 9.1 mg/dL (8.5-10.1) 06/09/19 19:54 Magnesium 2.0 mg/dL (1.8-2.4) 06/09/19 19:54 Total Bilirubin 0.8 mg/dL (0.2-1.0) 06/09/19 19:54 AST 24 U/L (15-37) 06/09/19 19:54 ALT 29 U/L (16-63) 06/09/19 19:54 Alkaline Phosphatase 82 U/L (46-116) 06/09/19 19:54 Troponin I < 0.05 ng/Ml (<0.06) 06/10/19 06:03 C-Reactive Protein 8.13 mg/dL (0.0-0.3) H 06/10/19 06:03 Total Protein 8.0 g/dL (6.4-8.2) 06/09/19 19:54 Albumin 3.0 g/dL (3.4-5.0) L 06/09/19 19:54 Urine Color Yellow (Yellow) 06/10/19 01:15 Urine Clarity Clear (Clear) 06/10/19 01:15 Urine pH 5.0 (5-8) 06/10/19 01:15 Ur Specific [place] 1.025 (1.005-1.025) 06/10/19 01:15 Urine Protein 100 mg/dL (Negative) H 06/10/19 01:15 Urine Ketones Negative mg/dL (Negative) 06/10/19 01:15 Urine Blood Small (Negative) H 06/10/19 01:15 Urine Nitrite Negative (Negative) 06/10/19 01:15 Urine Bilirubin Negative (Negative) 06/10/19 01:15 Urine Urobilinogen 0.2 EU/dL (Up TO 0.2) 06/10/19 01:15 Ur Leukocyte Esterase Negative (Negative) 06/10/19 01:15 Urine RBC 5-10 HPF (0-2) H 06/10/19 01:15 Urine WBC Negative HPF (0-5) 06/10/19 01:15 Ur Epithelial Cells Few HPF (Negative) 06/10/19 01:15 Urine Crystals Negative HPF (Negative) 06/10/19 01:15 Urine Bacteria Rare HPF (Negative) 06/10/19 01:15 Urine Casts Negative LPF (Negative) 06/10/19 01:15 Urine Mucus Negative (Negative) 06/10/19 01:15 Ur Culture Indicated? No 06/10/19 01:15 Urine Glucose Negative mg/dL (Negative) 06/10/19 01:15 MPI stress test showing scar but no active ischemia.
[2019-06-10] MEDS: Normal Saline Flush 10 ML SYR IVP (14:42)
[2019-06-10] MEDS: ceFAZolin 1 GM/50 ML BAG IVPB (14:43)
[2019-06-10 15:25] VITALS: BP 116/77; PULSE 95; RESP 18; TEMP 36.6; O2SAT 97
--- NOTE | 2019-06-10 16:25 | CHAPLAIN ---
Chris was resting in bed when I visited. I didn't immediately respond to questions, and may have been unsure of his answers. He asked for a glass of juice, but his nurse said to remind him that he was having a stress, so wasn't allowed juice at this time.
[2019-06-10] MEDS: Acetaminophen 325 MG TAB 650 MG PO (17:33)
[2019-06-10 19:00] VITALS: BP 129/74; PULSE 76; RESP 18; TEMP 35.9; O2SAT 98
[2019-06-10] MEDS: Atorvastatin 40 MG TAB 80 MG PO (20:22)
[2019-06-10] MEDS: Metoprolol 12.5 MG TAB PO (20:22)
[2019-06-10] MEDS: Water,Injection,Sterile 10 ML VIAL (22:12)
[2019-06-10 23:20] VITALS: BP 115/72; PULSE 69; RESP 18; TEMP 37.1; O2SAT 96
[2019-06-11] MEDS: Water,Injection,Sterile 10 ML VIAL (05:45)
[2019-06-11 06:37] LABS: HCT 35.1 % (40.0-50.0); HGB 11.7 g/dL (13.5-17.5); Mean Corp. HGB Concentration 33.3 g/dL (32.0-36.0); Mean Corpuscular Hemoglobin 31.3 pg (27.0-33.0); Mean Corpuscular Volume 93.9 fL (80-95); Mean Platelet Volume 9.3 fL (8.0-11.0); Platelet Count 274 x1000/uL (130-400); RBC 3.74 m/cumm (4.50-6.00); RBC Distribution Width 12.2 % (11.8-14.1); White Blood Cell Count 5.03 k/cumm (4.4-10.8)
[2019-06-11 06:44] LABS: Anion Gap 9.2 mmol/L (3-11); BUN 20 mg/dL (7-18); CO2 27.8 mmol/L (21.0-32.0); CREATININE 1.39 mg/dL (0.70-1.30); Calcium 9.1 mg/dL (8.5-10.1); Chloride 104 mmol/L (98-107); Estimated GFR 49.82 (mL/min/1.73m2); Glucose 98 mg/dL (74-106); Potassium 3.1 mmol/L (3.5-5.1); Sodium 141 mmol/L (136-145)
[2019-06-11 07:15] VITALS: BP 135/76; PULSE 62; RESP 16; TEMP 37.1; O2SAT 96
--- NOTE | 2019-06-11 08:05 | PHA.REVIEW ---
Pharmacy Admission Review - Admission Clinical Review (Last Updated 06/10/19 @ 14:28 by Chele Painting MD) Hypokalemia (Acute) Normocytic anemia (Acute) Cellulitis of left elbow (Acute) Chest pain (Acute) No Known Allergies Allergy (Unverified 06/09/19 19:54) Height 6 ft Weight 81.5 kg - Renal Dosing Renal Dosing: BUN 20 mg/dL (7-18) H 06/11/19 06:20 Creatinine 1.39 mg/dL (0.70-1.30) H 06/11/19 06:20 - Anticoagulation Anticoagulation: Hgb 11.7 g/dL (13.5-17.5) L 06/11/19 06:20 Hct 35.1 % (40.0-50.0) L 06/11/19 06:20 Plt Count 274 x1000/uL (130-400) 06/11/19 06:20 Creatinine 1.39 mg/dL (0.70-1.30) H 06/11/19 06:20 - Relevant Labs ESR 65 mm/hr (1-20) H 06/10/19 06:03 Sodium 141 mmol/L (136-145) 06/11/19 06:20 Potassium 3.1 mmol/L (3.5-5.1) L 06/11/19 06:20 Chloride 104 mmol/L (98-107) 06/11/19 06:20 Magnesium 2.0 mg/dL (1.8-2.4) 06/09/19 19:54 C-Reactive Protein 8.13 mg/dL (0.0-0.3) H 06/10/19 06:03 - DM Control DM Control: Glucose 98 mg/dL (74-106) 06/11/19 06:20 - Heart Failure/MO Heart Failure/MO: Troponin I < 0.05 ng/Ml (<0.06) 06/10/19 06:03 - BP Control BP Control: Blood Pressure 115/72
[2019-06-11 08:45] VITALS: O2SAT 96
[2019-06-11] MEDS: Clopidogrel 75 MG TAB PO (08:45)
[2019-06-11] MEDS: methylPREDNISolone 4 MG TAB PO (08:46)
[2019-06-11] MEDS: Aspirin E.C. 81 MG TABEC PO (08:46)
[2019-06-11] MEDS: Omeprazole 20 MG CAPCR PO (08:46)
[2019-06-11] MEDS: Tamsulosin 0.4 MG CAPCR PO (08:46)
[2019-06-11] MEDS: Colchicine 0.6 MG TAB PO (08:46)
[2019-06-11] MEDS: Metoprolol 12.5 MG TAB PO (08:46)
[2019-06-11 09:07] LABS: COVID-19 RT-PCR UVMMC Result Negative (Negative)
--- NOTE | 2019-06-11 09:39 | PGE_ITS ---
Date of Service Date of service: 06/11/19 Time of Service: 08:41 Assessment and Plan Assessment and plan (1) Cellulitis of left elbow: Status: Acute Assessment and plan: Chris is a 74-year-old who had what appeared to be a cellulitis of the left elbow. It does not fit with a picture of gout although he does have active gout and has had that in the past. It is hard to know e xactly what it was but I do not think it needed to be drained without any drainable collection. I would continue Keflex 500 mg 3 times daily for the next 1 week. I expect this to be enough to cover his cellulitis although it may need to be extended for another week or 2. I expect this will continue to improve without intervention and I do not think he needs orthopedic follow-up. However, I will try to call him within 1 week to make sure things have continued to improve. Otherwise, he may follow-up with his primary care physician as well. Subjective Subjective Interval history since last seen: Chris reports that the left elbow feels better. He has been able to use it more. He has no other complaints reported today. He denies any pain in the right foot or toe or knee. Exam Narrative Exam Narrative: Sitting in the chair. He is actively putting on his socks and shoes with the use of the left arm. His active motion is much improved. He is able to demonstrate active extension of 20 degrees and active flexion of 115 degrees. The erythema and induration over the posterior aspect left elbow has much improved. The erythema is well within the previously marked margins and in general has very little erythema remaining. He still has some tenderness to palpation about the posterior aspect of the left elbow. No notable elbow effusion. No pain at the joint. Objective Objective Clinical Data: Abnormal lab results 06/10/19 06/10/19 06/11/19 Range/Units 06:03 06:03 06:20 RBC (4.50-6.00) m/cumm Hgb (13.5-17.5) g/dL Hct (40.0-50.0) % ESR 65 H (1-20) mm/hr Potassium 3.1 L (3.5-5.1) mmol/L BUN 20 H (7-18) mg/dL Creatinine 1.39 H (0.70-1.30) mg/dL C-Reactive Protein 8.13 H (0.0-0.3) mg/dL 06/11/19 Range/Units 06:20 RBC 3.74 L (4.50-6.00) m/cumm Hgb 11.7 L (13.5-17.5) g/dL Hct 35.1 L (40.0-50.0) % ESR (1-20) mm/hr Potassium (3.5-5.1) mmol/L BUN (7-18) mg/dL Creatinine (0.70-1.30) mg/dL C-Reactive Protein (0.0-0.3) mg/dL Vital Signs Temperature 37.1 C 06/11/19 07:15 Temperature Source Temporal Artery Scan 06/11/19 07:15 Pulse 62 06/11/19 07:15 Pulse Rhythm Regular 06/10/19 20:00 Respiratory Rate 16 06/11/19 07:15 Respiratory Effort Non-Labored 06/10/19 20:00 Respiratory Depth Normal 06/10/19 20:00 Respiratory Pattern Normal 06/10/19 20:00 Blood Pressure 135/76 06/11/19 07:15 Pulse Oximetry 96 06/11/19 07:15 Oxygen Delivery Method Room Air 06/11/19 07:15 Oxygen Flow Rate 0 06/11/19 07:15 Pain Level 0 06/10/19 19:00 Intake & Output 06/10/19 06/10/19 06/11/19 11:59 23:59 11:59 Output Total 900 / 1200 300 / 1200 200 / 200 Balance -900 / -1200 -300 / -1200 -200 / -200 Output: Urine 900 / 1200 300 / 1200 200 / 200 Other: Urine Color Light So Straw Urine Appearance Clear Clear Comment Per aid, voiding in toilet. Urine not visualized Stool Size Large Smear Stool Characteristics Soft Liquid Formed Brown Voiding Methods Toilet Toilet Laboratory Results WBC 5.03 k/cumm (4.4-10.8) 06/11/19 06:20 RBC 3.74 m/cumm (4.50-6.00) L 06/11/19 06:20 Hgb 11.7 g/dL (13.5-17.5) L 06/11/19 06:20 Hct 35.1 % (40.0-50.0) L 04/24/20 06:20 MCV 93.9 fL (80-95) 06/11/19 06:20 MCH 31.3 pg (27.0-33.0) 06/11/19 06:20 MCHC 33.3 g/dL (32.0-36.0) 06/11/19 06:20 RDW 12.2 % (11.8-14.1) 06/11/19 06:20 Plt Count 274 x1000/uL (130-400) 06/11/19 06:20 MPV 9.3 fL (8.0-11.0) 06/11/19 06:20 Immature Gran % 0.2 % 06/09/19 19:54 Neutrophils % 68.1 06/09/19 19:54 Lymphocytes % 15.1 06/09/19 19:54 Monocytes % 14.8 06/09/19 19:54 Eosinophils % 1.6 06/09/19 19:54 Basophils % 0.2 06/09/19 19:54 Absolute Neutrophils 4.34 k/cumm (1.2-6.7) 06/09/19 19:54 Absolute Lymphocytes 0.96 k/cumm (1.2-3.4) L 06/09/19 19:54 Absolute Monocytes 0.94 k/cumm (0.11-0.7) H 06/09/19 19:54 Absolute Eosinophils 0.10 k/cumm (0.0-0.7) 06/09/19 19:54 Absolute Basophils 0.01 k/cumm (0.0-0.2) 06/09/19 19:54 ESR 65 mm/hr (1-20) H 06/10/19 06:03 Sodium 141 mmol/L (136-145) 06/11/19 06:20 Potassium 3.1 mmol/L (3.5-5.1) L 06/11/19 06:20 Chloride 104 mmol/L (98-107) 06/11/19 06:20 Carbon Dioxide 27.8 mmol/L (21.0-32.0) 06/11/19 06:20 Anion Gap 9.2 mmol/L (3-11) 06/11/19 06:20 BUN 20 mg/dL (7-18) H 06/11/19 06:20 Creatinine 1.39 mg/dL (0.70-1.30) H 06/11/19 06:20 Estimated GFR/1.73 m2 49.82 (mL/min/1.73m2) 06/11/19 06:20 Glucose 98 mg/dL (74-106) 06/11/19 06:20 Uric Acid 4.0 mg/dL (3.5-7.2) 06/09/19 19:59 Calcium 9.1 mg/dL (8.5-10.1) 06/11/19 06:20 Magnesium 2.0 mg/dL (1.8-2.4) 06/09/19 19:54 Total Bilirubin 0.8 mg/dL (0.2-1.0) 06/09/19 19:54 AST 24 U/L (15-37) 06/09/19 19:54 ALT 29 U/L (16-63) 06/09/19 19:54 Alkaline Phosphatase 82 U/L (46-116) 06/09/19 19:54 Troponin I < 0.05 ng/Ml (<0.06) 06/10/19 06:03 C-Reactive Protein 8.13 mg/dL (0.0-0.3) H 06/10/19 06:03 Total Protein 8.0 g/dL (6.4-8.2) 06/09/19 19:54 Albumin 3.0 g/dL (3.4-5.0) L 06/09/19 19:54 Urine Color Yellow (Yellow) 06/10/19 01:15 Urine Clarity Clear (Clear) 06/10/19 01:15 Urine pH 5.0 (5-8) 06/10/19 01:15 Ur Specific [place] 1.025 (1.005-1.025) 06/10/19 01:15 Urine Protein 100 mg/dL (Negative) H 06/10/19 01:15 Urine Ketones Negative mg/dL (Negative) 06/10/19 01:15 Urine Blood Small (Negative) H 06/10/19 01:15 Urine Nitrite Negative (Negative) 06/10/19 01:15 Urine Bilirubin Negative (Negative) 06/10/19 01:15 Urine Urobilinogen 0.2 EU/dL (Up TO 0.2) 06/10/19 01:15 Ur Leukocyte Esterase Negative (Negative) 06/10/19 01:15 Urine RBC 5-10 HPF (0-2) H 06/10/19 01:15 Urine WBC Negative HPF (0-5) 06/10/19 01:15 Ur Epithelial Cells Few HPF (Negative) 06/10/19 01:15 Urine Crystals Negative HPF (Negative) 06/10/19 01:15 Urine Bacteria Rare HPF (Negative) 06/10/19 01:15 Urine Casts Negative LPF (Negative) 06/10/19 01:15 Urine Mucus Negative (Negative) 06/10/19 01:15 Ur Culture Indicated? No 06/10/19 01:15 Urine Glucose Negative mg/dL (Negative) 06/10/19 01:15 COVID-19 PCR Negative (Negative) 06/09/19 22:05 Nasopharyn COVID-19 PCR Not Applicable 06/09/19 22:05 Ref Test Perform Site [facility] lab 06/09/19 22:05
--- NOTE | 2019-06-11 09:43 | W.PM.DS.N ---
Date of service: 06/11/19 Time of Service: 09:44 DS: Diagnosis Discharge Diagnosis (1) Chest pain: Start date: 06/11/19 Start time: 09:44 Status: Resolved Asessment and Plan: No CP today. Flat troponins, stress test with scarring but no ischemia. Continues to have periods of CP prior to admission, started on BB low dose, no hypotension continue dual antiplatelet therapy and statin. (2) CAD (coronary artery disease): Start date: 06/11/19 Start time: 09:46 Status: Chronic Asessment and Plan: Stenting in the past but continues to have residual disease. Management as above. (3) Cellulitis of left elbow: Start date: 06/11/19 Start time: 09:46 Status: Acute Asessment and Plan: With Elevate CRP and receding erythema on antibiotic therapy. Received ancef while in the hospital. Keflex 500 mg QID x 7 days follow up with Dr. Augustin in 7 days. (4) Gout: Start date: 06/11/19 Start time: 09:48 Status: Chronic Asessment and Plan: Active in toe. Continue allopurinol, colchicine and methylprednisolone. (5) Normocytic anemia: Start date: 06/11/19 Start time: 09:48 Status: Acute Asessment and Plan: [facility]. Stable at this time. (6) Hypokalemia: Start date: 06/11/19 Start time: 09:49 Status: Acute Asessment and Plan: Repleted, follow up with PCP Discharge Plan Disposition Patient Disposition: HOME Condition: Stable Discharge Details Chief Complaint: Chest Pain Clinical Impression: Chest pain, Gout Reason For Visit: CP CELLULITIS Admit Date/Time: 06/09/19 22:22 Admit Provider: Mitesh Paul Attending Provider: Mitesh Paul Primary Care Provider: Unknown,Unknown ED Provider: Annette Yee Hospital Course Hospital Course: 74 y.o male with PMH dementia, h/o CAD s/p LAD stent 03/08, presenting to [facility] ED after CP, no apparent relation to activity, no associated symptoms and no radiation. ER findings negative CXR, normal EKG, negative troponin, admitted to m/s observation for further r/o and stress test. During course of hospitalization patient had stress without ischemia however scarring evidenced. He was placed on low dose BB and appears to be tolerating it well. He has been on a BB in the past however he was hypotensive and for this he was taken off, at this time he is tolerating a low dose and will be discharged home on. He did require po dosing of potassium for repletion. He was also found to have erythema around his elbow; there was concern for gout vs infection due to fact he is on current treatment for gout, ortho consulted and it was thought to be more cellulitis. He was started on ancef IM, today the erythema is receding, he is denying CP and therefore being discharged home. He will finish a course of keflex 500 mg QID x 7 days, follow up with Dr. Augustin in 7 days and [facility]. He denies CP, SOB, NVD. Home Meds and New Rx's Prescriptions: New cephalexin 500 mg Capsule 500 mg PO QID Qty: 28 RF: 0 metoprolol tartrate 25 mg Tablet 12.5 mg PO BID Qty: 14 RF: 0 Continued cyclobenzaprine 10 mg Tablet 10 mg PO TID PRNRF: 0 atorvastatin 80 mg Tablet 80 mg PO DAILY RF: 0 methylprednisolone 4 mg Tablet 4 mg PO DAILY RF: 0 cyanocobalamin (vitamin B-12) [Vitamin B-12] 1,000 mcg Tablet 1,000 mcg PO DAILY RF: 0 clopidogrel 75 mg Tablet 75 mg PO DAILY RF: 0 tamsulosin 0.4 mg Capsule 0.4 mg PO DAILY RF: 0 nitroglycerin 0.4 mg Tablet, Sublingual 0.4 mg SUBLINGUAL Q5M PRNRF: 0 omeprazole 20 mg Capsule,Delayed Release(Dr/Ec) 20 mg PO DAILY RF: 0 allopurinol 300 mg Tablet 300 mg PO DAILY RF: 0 colchicine 0.6 mg Tablet 0.6 mg PO DAILY RF: 0 aspirin 81 mg Tablet,Chewable 81 mg PO DAILY RF: 0 Discharge Instructions Instructions: Coronary Artery Disease (DC), Cellulitis (DC), Hypokalemia (DC) Additional Instructions: Follow up with Dr. Augustin in 7 days [facility]. You are on 2 new prescriptions. Metoprolol which is for chest pain and keflex for infection. Take keflex 4 times a day for a week Stand Alone Forms: Nursing Discharge Form Activity:: Activity as Tolerated Equipment/Supplies:: No Equipment Needed Diet:: As Tolerated Discharge Orders Discharge Orders: Discharge Order (Routine); Ordered 06/11/19 Ordered By: Breonna Mckay DS: Summary Status at Discharge Functional status at discharge: independent ambulation Overall status at discharge: patient is back to baseline Mental Status: mental status grossly normal Speech and Movement: speech and movement normal Mood: congruent mood Affect: normal affect Exam Const General: cooperative, healthy appearing, comfortable and no acute distress Nutritional Appearance: average body habitus Orientation: alert, awake and oriented x3 HENMT Head: normal to inspection Ears: hearing grossly normal bilaterally Face and sinus: normal facial exam Mouth: moist mucous membranes Eyes Sclera: sclerae normal Pupils: PERRL EOM: EOM intact bilaterally Neck Neck: normal visual inspection Carotids: normal carotid upstroke Lymphatic: no lymphadenopathy noted Resp Effort & Inspection: normal respiratory effort Auscultation: clear to auscultation bilaterally Cardio Jugular venous pressure: no JVD Rate: regular rate Rhythm: regular rhythm Heart Sounds: S1 normal and S2 normal GI Palpation: soft and no hepatosplenomegaly Percussion: normal to percussion Skin General skin exam: erythema (elbow) Neuro General: patient alert, patient awake and patient oriented x3 Extrem General: full ROM and no clubbing, cyanosis or edema Psych Appearance: grossly normal and well kempt Mental Status: mental status grossly normal Speech and Movement: speech and movement normal Mood: congruent mood Affect: normal affect DS: Data Vitals/I&O Vitals and I&O: Vital Signs Temperature 37.1 C 06/11/19 07:15 Temperature Source Temporal Artery Scan 06/11/19 07:15 Pulse 62 06/11/19 07:15 Pulse Rhythm Regular 06/10/19 20:00 Respiratory Rate 16 06/11/19 07:15 Respiratory Effort Non-Labored 06/10/19 20:00 Respiratory Depth Normal 06/10/19 20:00 Respiratory Pattern Normal 06/10/19 20:00 Blood Pressure 135/76 06/11/19 07:15 Pulse Oximetry 96 06/11/19 07:15 Oxygen Delivery Method Room Air 06/11/19 07:15 Oxygen Flow Rate 0 06/11/19 07:15 Pain Level 0 06/10/19 19:00 Intake & Output 06/10/19 06/10/19 06/11/19 11:59 23:59 11:59 Output Total 900 / 1200 300 / 1200 200 / 200 Balance -900 / -1200 -300 / -1200 -200 / -200 Output: Urine 900 / 1200 300 / 1200 200 / 200 Other: Urine Color Light So Straw Urine Appearance Clear Clear Comment Per aid, voiding in toilet. Urine not visualized Stool Size Large Smear Stool Characteristics Soft Liquid Formed Brown Voiding Methods Toilet Toilet Data Completed and Pending Completed studies during hospitalization [Text1]: Exam(s) a RAD:XR chest 2V PA & lateral EXAM: XR CHEST 2V PA LATERAL CLINICAL HISTORY: chest pain TECHNIQUE: 2D digital imaging was performed. COMPARISON: No exams were available for comparison FINDINGS: The heart is not enlarged. The lungs are clear and well expanded. No pleural effusion seen. Mediastinal contours appear intact. IMPRESSION: Normal chest Labs on day of discharge: Labs from last 24 hours 06/11/19 06/11/19 06/10/19 06:20 06:20 06:03 WBC 5.03 RBC 3.74 L Hgb 11.7 L Hct 35.1 L MCV 93.9 MCH 31.3 MCHC 33.3 RDW 12.2 Plt Count 274 MPV 9.3 ESR 65 H Sodium 141 Potassium 3.1 L Chloride 104 Carbon Dioxide 27.8 Anion Gap 9.2 BUN 20 H Creatinine 1.39 H Estimated GFR/1.73 m2 49.82 Glucose 98 Calcium 9.1 Troponin I C-Reactive Protein COVID-19 PCR Nasopharyn COVID-19 PCR Ref Test Perform Site 06/10/19 06/09/19 06:03 22:05 WBC RBC Hgb Hct MCV MCH MCHC RDW Plt Count MPV ESR Sodium Potassium Chloride Carbon Dioxide Anion Gap BUN Creatinine Estimated GFR/1.73 m2 Glucose Calcium Troponin I < 0.05 C-Reactive Protein 8.13 H COVID-19 PCR Negative Nasopharyn COVID-19 PCR Not Applicable Ref Test Perform Site [facility] Medical History Abdominal aortic aneurysm (Acute) Per [place] records unchanged on CT/MRI 09/2018, 3.5 cm) BPH (benign prostatic hyperplasia) (Chronic) CAD (coronary artery disease) (Chronic) Carotid artery stenosis (Acute) Chest pain (Resolved) Dementia (Chronic) Essential hypertension (Acute) GERD (gastroesophageal reflux disease) (Chronic) Gout (Chronic) History of hematuria (Acute) [facility] 2018 Sensorineural hearing loss (Acute) Surgical History Stented coronary artery (Acute) Social History Smoking/Tobacco Use Status: Never Alcohol Intake: never Substance use type: does not use Do you feel safe at home: Yes Do you feel safe in your relationship?: Yes
[2019-06-11] MEDS: Potassium Chloride 20 MEQ TABCR 40 MEQ PO (10:40)
--- NOTE | 2019-06-11 14:07 | PDOC.CMDIS ---
- If Service Date Differs Date of service: 06/11/19 Time of Service: 14:07 LACE Index Scoring Tool - Questions: Length of Stay (in days): 2 Acuity (Admit via E.D.?): Yes Comorbidities: Cerebrovascular Disease, Dementia E.D. Visits: 1 - Answers: Total Score: 11 Risk of Readmission: High Risk Care Management Discharge Reason for Hospitalization: Chest Pain Discharge Plan: Chris will be discharged home with no new services. He will follow up with his community providers and transport home via private vehicle with his . Patient/Family Education Needs: Discharge plan, limitations, follow up plan, Ask Me Three.
== END 2019-06-11 11:54 | disposition home or self-care (01) ==
LOC: ER 21:54 → MS 23:08
PROVIDERS: Internal Medicine; Admitting Provider General Practice; Emergency Provider Physician Assistant; Visit Provider Internal Medicine
DX: R07.9 Chest pain, unspecified (principal); L03.114 Cellulitis of left upper limb; M1A.9XX0 Chronic gout, unspecified, without tophus (tophi); I25.10 Atherosclerotic heart disease of native coronary artery without angina pectoris; D64.9 Anemia, unspecified; E87.6 Hypokalemia; F03.90 Unspecified dementia, unspecified severity, without behavioral disturbance, psychotic disturbance, mood disturbance, and anxiety; Z95.5 Presence of coronary angioplasty implant and graft; N40.0 Benign prostatic hyperplasia without lower urinary tract symptoms; K21.9 Gastro-esophageal reflux disease without esophagitis; Z79.02 Long term (current) use of antithrombotics/antiplatelets
CPT/HCPCS: 36415; 78452; 80048; 80053; 85027; 85652; 93005; 93016; 93018; 99214; 99222; 99224; 99232; 99233; 99239; 99253; 99285; U0003; 71046; 81003; 81015; 83735; 84484; 84550; 85025; 86140; 93010; 93017; 99217; 99219; 99284; G0378; J0690; J2785; J3490; J7509

== ENCOUNTER → 2019-06-18 10:08 | Outpatient (BNVA) | payer MEDICARE, SELFPAY | PROVIDERS: Visit Provider Student in an Organized Health Care Education/Training Program | DX: L03.114 Cellulitis of left upper limb (principal) | CPT/HCPCS: 99213 ==

== ENCOUNTER 2019-06-26 17:22 | Emergency (ER) | payer MEDICARE, OTHER, SELFPAY ==
[2019-06-26 17:29] VITALS: BP 142/68; PULSE 55; TEMP 37.1; O2SAT 99
--- NOTE | 2019-06-26 17:57 | ED.GENADUL_ITS ---
Discharge Plan Disposition Patient Disposition: HOME Condition: Stable Discharge Details Chief Complaint: Orthopedic Clinical Impression: Arthritis of knee, left Primary Care Provider: Unknown,Unknown ED Provider: Ra Abbott Home Meds and New Rx's Prescriptions: Continued cyclobenzaprine 10 mg Tablet 10 mg PO TID PRNRF: 0 atorvastatin 80 mg Tablet 80 mg PO DAILY RF: 0 cyanocobalamin (vitamin B-12) [Vitamin B-12] 1,000 mcg Tablet 1,000 mcg PO DAILY RF: 0 clopidogrel 75 mg Tablet 75 mg PO DAILY RF: 0 tamsulosin 0.4 mg Capsule 0.4 mg PO DAILY RF: 0 nitroglycerin 0.4 mg Tablet, Sublingual 0.4 mg SUBLINGUAL Q5M PRNRF: 0 omeprazole 20 mg Capsule,Delayed Release(Dr/Ec) 20 mg PO DAILY RF: 0 allopurinol 300 mg Tablet 300 mg PO DAILY RF: 0 colchicine 0.6 mg Tablet 0.6 mg PO DAILY RF: 0 aspirin 81 mg Tablet,Chewable 81 mg PO DAILY RF: 0 Discharge Instructions Instructions: Gout (ED) Additional Instructions: Rest your knee. Use colchicine as prescribed. Please contact your primary care physician to arrange follow-up. Return to the ER for any worsening or new concerning symptoms. Medical Decision Making 74-year-old male with history of dementia, gout, here with his notes he was complaining of some left knee pain. Patient is a poor historian but has no pain or tenderness at this time. There is trace effusion noted on left knee with no warmth or erythema. Ligaments are intact and he has full range of motion of the knee. I advised his to give him colchicine as prescribed for suspected mild gout flare and have him follow-up with his primary care physician on Friday. Encouraged him to rest his knee and provided Paul wrap for compression. He was encouraged to use cane for assistance with ambulation should his knee pain return. Usual and customary discharge instructions were provided. HPI General Mode of arrival: ambulatory . Date/Time Provider Initiated Documentation: 06/26/19 17:54 . Limitations to Documentation: no limitations . Information obtained by: patient . HPI Narrative: 74-year-old male with history of gouty arthritis here with chief complaint of left knee pain. History and review of systems limited secondary to dementia. notes that he has history of gout that flares intermittently. She was concerned today because he was noting pain and requesting to be evaluated. Currently he is not complaining of any pain. No associated fever. No rash. Related Data Home Medications Medication Instructions Recorded Confirmed allopurinol 300 mg PO DAILY 06/09/19 06/26/19 atorvastatin 80 mg PO DAILY 06/09/19 06/26/19 clopidogrel 75 mg PO DAILY 06/09/19 06/26/19 colchicine 0.6 mg PO DAILY 06/09/19 06/26/19 cyanocobalamin (vitamin B-12) 1,000 mcg PO DAILY 06/09/19 06/26/19 [Vitamin B-12] cyclobenzaprine 10 mg PO TID PRN 06/09/19 06/26/19 nitroglycerin 0.4 mg SUBLINGUAL Q5M PRN 06/09/19 06/26/19 omeprazole 20 mg PO DAILY 06/09/19 06/26/19 tamsulosin 0.4 mg PO DAILY 06/09/19 06/26/19 aspirin 81 mg PO DAILY 06/10/19 06/26/19 Allergies Allergy/AdvReac Type Severity Reaction Status Date / Time No Known Allergies Allergy Unverified 06/26/19 17:33 General Stated Complaint: Orthopedic MIGNON: 3 Review of Systems Constitutional Constitutional: Denies fever(s) Musculoskeletal Musculoskeletal: Reports as per HPI Integumentary/Breasts Skin/Breast: Denies rash [facility] Medical History Abdominal aortic aneurysm (Acute) Per [place] records unchanged on CT/MRI 09/2018, 3.5 cm) BPH (benign prostatic hyperplasia) (Chronic) CAD (coronary artery disease) (Chronic) Carotid artery stenosis (Acute) Chest pain (Resolved) Dementia (Chronic) Essential hypertension (Acute) GERD (gastroesophageal reflux disease) (Chronic) Gout (Chronic) History of hematuria (Acute) [facility] 2018 Sensorineural hearing loss (Acute) Surgical History Stented coronary artery (Acute) Social History Smoking/Tobacco Use Status: Never Alcohol Intake: never Drug use: Never Substance use type: does not use Do you feel safe at home: Yes Do you feel safe in your relationship?: Yes Exam Const General: cooperative and no acute distress Resp Auscultation: clear to auscultation bilaterally, no rales, no rhonchi and no wheezes Cardio Jugular venous pressure: no JVD Rate: regular rate and not tachycardic Rhythm: regular rhythm Heart Sounds: murmur systolic II/ Pulses: dorsalis pedis present bilaterally 2+ Skin General skin exam: no rashes or lesions noted Neuro General: patient alert, patient awake and tone normal Extrem General: no edema Left lower extremity: hip/thigh Details: normal ROM; no tenderness, knee Details: normal ROM, knee ligament exam normal and other (tiny effusion); no tenderness, no crepitus, no deformity and no unusual warmth and lower leg Details: no tenderness Course Vital Signs Vital signs: Vital Signs Temperature 37.1 C 06/26/19 17:29 Pulse 55 L 06/26/19 17:29 Blood Pressure 142/68 H 06/26/19 17:29 Pulse Oximetry 99 06/26/19 17:29 Temperature 37.1 C 06/26/19 17:29 Temperature Source Temporal Artery Scan 06/26/19 17:29 Pulse 55 L 06/26/19 17:29 Respiratory Effort Non-Labored 06/26/19 17:31 Blood Pressure 142/68 H 06/26/19 17:29 Blood Pressure Position Sitting 06/26/19 17:29 Pulse Oximetry 99 06/26/19 17:29 Oxygen Delivery Method Room Air 06/26/19 17:29 Oxygen Flow Rate 0 06/26/19 17:29
== END 2019-06-26 18:05 | disposition home or self-care (01) ==
LOC: ER 18:41
PROVIDERS: Emergency Provider Student in an Organized Health Care Education/Training Program; PCP Nurse Practitioner Adult Health
DX: M17.12 Unilateral primary osteoarthritis, left knee (principal); M10.9 Gout, unspecified; G30.9 Alzheimer's disease, unspecified; F02.80 Dementia in other diseases classified elsewhere, unspecified severity, without behavioral disturbance, psychotic disturbance, mood disturbance, and anxiety; I10 Essential (primary) hypertension
CPT/HCPCS: 99282

== ENCOUNTER 2019-07-05 08:48 | Outpatient (CLI) | payer OTHER, SELFPAY ==
--- NOTE | 2019-07-05 09:51 | DI.RAD_ITS ---
EXAM: XR KNEE LT 3V AP,LAT,KAN CLINICAL HISTORY: LT KNEE PAIN, H/O GOUT,M25.562,[id number]. TECHNIQUE: 2D digital imaging was performed. COMPARISON: CR,XR XR CHEST 2V PA LATERAL from 06/09/2019 FINDINGS: BONES: No acute fracture is present. No bony destructive lesion is seen. There are enthesophytes at the superior patella and tibial tuberosity. JOINTS: The knee is normally aligned. No joint effusion is seen. Small osteophytes are seen at the po sterior patella. SOFT TISSUE: Vascular calcifications are present. Well corticated osseous density is seen adjacent t o the lateral femoral condyle likely reflecting old injury. IMPRESSION: Mild degenerative changes of the left knee. DATA REPOSITORY: RADIATION DOSE DELIVERED:
== END 2019-07-05 09:08 ==
PROVIDERS: PCP Nurse Practitioner Adult Health; Visit Provider Nurse Practitioner Adult Health
DX: M25.562 Pain in left knee (principal); M17.12 Unilateral primary osteoarthritis, left knee; M25.762 Osteophyte, left knee
CPT/HCPCS: 73562

== ENCOUNTER 2019-07-31 21:51 | Emergency (ER) | payer OTHER, SELFPAY ==
[2019-07-31 22:15] VITALS: BP 136/70; PULSE 68; RESP 16; TEMP 36.2; O2SAT 98
--- NOTE | 2019-07-31 22:17 | ED.GENADUL_ITS ---
Discharge Plan Disposition Patient Disposition: HOME Condition: Good Discharge Details Chief Complaint: Orthopedic Clinical Impression: Gout, Dementia, Cellulitis of left elbow Primary Care Provider: Yarelis Dumont ED Provider: Jace Munson Home Meds and New Rx's Prescriptions: New cephalexin [Keflex] 500 mg capsule 500 mg PO QID 7 Days Qty: 28 RF: 0 Continued cyclobenzaprine 10 mg Tablet 10 mg PO TID PRNRF: 0 atorvastatin 80 mg Tablet 80 mg PO DAILY RF: 0 cyanocobalamin (vitamin B-12) [Vitamin B-12] 1,000 mcg Tablet 1,000 mcg PO DAILY RF: 0 clopidogrel 75 mg Tablet 75 mg PO DAILY RF: 0 tamsulosin 0.4 mg Capsule 0.4 mg PO DAILY RF: 0 nitroglycerin 0.4 mg Tablet, Sublingual 0.4 mg SUBLINGUAL Q5M PRNRF: 0 omeprazole 20 mg Capsule,Delayed Release(Dr/Ec) 20 mg PO DAILY RF: 0 allopurinol 300 mg Tablet 300 mg PO DAILY RF: 0 colchicine 0.6 mg Tablet 0.6 mg PO DAILY RF: 0 aspirin 81 mg Tablet,Chewable 81 mg PO DAILY RF: 0 Discharge Instructions Instructions: Cellulitis (ED), Gout (ED) Additional Instructions: At this time I suspect that you have a combination of your chronic gout in conjunction with mild cellulitis. Please take the antibiotic as directed. Please take 1000 mg of Tylenol every 6 hours for the next few days to help with the pain. If you notice any worsening of your symptoms, or any new symptoms such as vomiting, diarrhea, fever, chills, shortness of breath, chest pain, numbness, weakness, or fainting , please return immediately to the emergency department for reevaluation. Please follow up with your online merchandising specialist as soon as possible for reassessment and reevaluation. As always, it was a pleasure participating in your medical care today. Referrals: Yarelis Dumont [Primary Care Provider] - Son Augustin MD [ [facility] STAFF PHYSICIAN] - Medical Decision Making 74-year-old male with a past medical history of coronary artery di sease, dementia, chronic gout, often in the left elbow, presents today for evaluation of pain redness and erythema of the left elbow. Patient states that he was working outside today, and gently bumped his left elbow while working. He had no pain at that time, however throughout the day/evening he gradually developed mild swelling pain redness warmth, worsened with movement and palpation. He denies any symptoms of fever or chills. He states that the initial inciting event was notably minimal, and not indicative of any significant trauma whatsoever. He denies any other complaints at this time. He does state that the symptoms feel similar to the previous times he had cellulitis and or gout of the left elbow. He has been taking his gout medications as directed otherwise, he does not take NSAIDs secondary to his regular Plavix though. No other complaints at this time. No other modifying factors. Physical exam demonstrates mild pain swelling redness around the olecranon, no asymmetric warmth. History is not indicative of traumatic fracture. Patient and family would both like to hold off on x-rays at this time. Suspect mild gout irritated by gently hitting the elbow earlier, however differential also does include mild cellulitis or mild bursitis. With the patient's age, and history of a similar presentation in the past which responded well to antibiotics in conjunction with his current clinical presentation I do feel that starting Keflex is reasonable for potential mild cellulitis. Vitals are notably stable, no evidence of sepsis, no indication for IV antibiotics or admission. Recommend continuation of his gout medications, addition of 1000 mg of Tylenol every 6 hours, Keflex as directed, and close follow-up with online merchandising specialist Dr. Augustin with whom he has been followed for this in the past. Discussed the case with the patient and his was at bedside. I have extensively reviewed the treatment plan and discharge instructions with the patient and their family. I have addressed all patient concerns at this time. The patient and family was made aware of what symptoms to monitor for that would warrant a return to the emergency department. Discussed the plan with the patient and family, they demonstrate verbal understanding and agreement with our assessment and plan at this time. HPI General Date/Time Provider Initiated Documentation: 07/31/19 21:58 . HPI Narrative: 74-year-old male with a past medical history of coronary artery disease, dementia, chronic gout, often in the left elbow, presents today for evaluation of pain redness and erythema of the left elbow. Patient states that he was working outside today, and gently bumped his left elbow while working. He had no pain at that time, however throughout the day/evening he gradually developed mild swelling pain redness warmth, worsened with movement and palpation. He denies any symptoms of fever or chills. He states that the initial inciting event was notably minimal, and not indicative of any significant trauma whatsoever. He denies any other complaints at this time. He does state that the symptoms feel similar to the previous times he had cellulitis and or gout of the left elbow. He has been taking his gout medications as directed otherwise, he does not take NSAIDs secondary to his regular Plavix though. No other complaints at this time. No other modifying factors. Related Data Home Medications Medication Instructions Recorded Confirmed allopurinol 300 mg PO DAILY 06/09/19 06/26/19 atorvastatin 80 mg PO DAILY 06/09/19 06/26/19 clopidogrel 75 mg PO DAILY 06/09/19 06/26/19 colchicine 0.6 mg PO DAILY 06/09/19 06/26/19 cyanocobalamin (vitamin B-12) 1,000 mcg PO DAILY 06/09/19 06/26/19 [Vitamin B-12] cyclobenzaprine 10 mg PO TID PRN 06/09/19 06/26/19 nitroglycerin 0.4 mg SUBLINGUAL Q5M PRN 06/09/19 06/26/19 omeprazole 20 mg PO DAILY 06/09/19 06/26/19 tamsulosin 0.4 mg PO DAILY 06/09/19 06/26/19 aspirin 81 mg PO DAILY 06/10/19 06/26/19 cephalexin [Keflex] 500 mg PO QID 7 Days #28 cap 07/31/19 Previous Rx's Medication Instructions Recorded cephalexin [Keflex] 500 mg PO QID 7 Days #28 cap 07/31/19 Allergies Allergy/AdvReac Type Severity Reaction Status Date / Time No Known Allergies Allergy Unverified 06/26/19 17:33 General Stated Complaint: Orthopedic MIGNON: 4 Review of Systems All systems reviewed & are unremarkable except as noted in HPI and below [facility] Medical History Abdominal aortic [facility] (Ac[facility]) [facility] 09[facility]2018, 3.5 cm) BPH (benign prostatic hyperplasia) (Chronic) CAD (coronary artery disease) (Chronic) Carotid artery stenosis (Acute) Chest pain (Resolved) Dementia (Chronic) Essential hypertension (Acute) GERD (gastroesophageal reflux disease) (Chronic) Gout (Chronic) History of hematuria (Acute) [facility], [facility] August 2018 Sensorineural hearing loss (Acute) Surgical History Stented coronary artery (Acute) Social History Smoking/Tobacco Use Status: Never Alcohol Intake: never Drug use: Never Substance use type: does not use Do you feel safe at home: Yes Do you feel safe in your relationship?: Yes Exam Narrative Exam Narrative: 1.Const: Well-nourished, Well-developed, appearing stated age 2.Eyes: PERRL, no conjunctival injection, and symmetrical lids. 3.ENT: Atraumatic external nose and ears. Moist MM. Neck: Symmetric, trachea midline, No thyromegaly. 4.CVS: +S1/S2, No murmurs or gallops. Peripheral pulses 2+ and equal in all extremities. Brisk capillary refill in all extremities. 5.RESP: Unlabored respiratory effort. Clear to auscultation bilaterally. No wheezes rales or rhonchi 6.GI: Soft, Nontender/Nondistended, No hepatosplenomegaly. No guarding or rebound. 7.MSK: Normocephalic/, patient's left elbow demonstrates mild swelling, mild redness, no fluctuance. No significant warmth. Mild pain with flexion and extension. No significant effusion that I can appreciate. Swelling appears to be mainly around the olecranon itself. No erythema proximally or distally. No evidence of significant trauma. 8.Skin: Warm, Dry. Please see musculoskeletal 9.Neuro: arch support technician II-XII grossly intact. Sensation grossly intact, no focal neurologic deficits. 10.Psych: (AAO) x3. Appropriate mood and affect Course Vital Signs Vital signs: Vital Signs Temperature 36.2 C L 07/31/19 22:15 Pulse 68 07/31/19 22:15 Respiratory Rate 16 07/31/19 22:15 Blood Pressure 136/70 07/31/19 22:15 Pulse Oximetry 98 07/31/19 22:15 Temperature 36.2 C L 07/31/19 22:15 Temperature Source Oral 07/31/19 22:15 Pulse 68 07/31/19 22:15 Respiratory Rate 16 07/31/19 22:15 Blood Pressure 136/70 07/31/19 22:15 Blood Pressure Position Sitting 07/31/19 22:15 Pulse Oximetry 98 07/31/19 22:15 Oxygen Delivery Method Room Air 07/31/19 22:15 Oxygen Flow Rate 0 07/31/19 22:15
[2019-07-31] MEDS: Cephalexin 500 MG CAP, 4 CAPS/BTL PO (22:21)
[2019-07-31] MEDS: Lidocaine 5% Patch 1 PATCH TP (22:21)
== END 2019-07-31 22:30 | disposition home or self-care (01) ==
PROVIDERS: Emergency Provider Student in an Organized Health Care Education/Training Program; PCP Nurse Practitioner Adult Health
DX: L03.114 Cellulitis of left upper limb (principal); M1A.9XX0 Chronic gout, unspecified, without tophus (tophi); F03.90 Unspecified dementia, unspecified severity, without behavioral disturbance, psychotic disturbance, mood disturbance, and anxiety
CPT/HCPCS: 99283

== ENCOUNTER 2019-08-05 17:55 | Emergency (ER) | payer OTHER, SELFPAY ==
[2019-08-05] VITALS (35 sets, daily range): BP systolic 107–137; BP diastolic 56–91; PULSE 52–69; RESP 9–20; TEMP 37.1; O2SAT 95–98
[2019-08-05 18:25] LABS: Abs Immature Grans 0.01 k/cumm (0.0-0.09); Absolute Basophil Count 0.02 k/cumm (0.0-0.2); Absolute Eosinophil Count 0.22 k/cumm (0.0-0.7); Absolute Monocyte Count 0.71 k/cumm (0.11-0.7); Absolute Neutrophil Count 3.32 k/cumm (1.2-6.7); Basophils % 0.3; Eosinophils % 3.8; HCT 39.4 % (40.0-50.0); HGB 12.9 g/dL (13.5-17.5); Immature Grans % 0.2 %; Mean Corp. HGB Concentration 32.7 g/dL (32.0-36.0); Mean Corpuscular Hemoglobin 31.2 pg (27.0-33.0); Mean Corpuscular Volume 95.4 fL (80-95); Mean Platelet Volume 9.6 fL (8.0-11.0); Monocytes % 12.3; Neutrophils % 57.4; Platelet Count 245 x1000/uL (130-400); RBC 4.13 m/cumm (4.50-6.00); RBC Distribution Width 13.7 % (11.8-14.1); White Blood Cell Count 5.78 k/cumm (4.4-10.8)
--- NOTE | 2019-08-05 18:30 | DI.RAD_ITS ---
EXAM: XR CHEST 2V PA LATERAL CLINICAL HISTORY: chest pain TECHNIQUE: 2D digital imaging was performed. COMPARISON: No exams were available for comparison FINDINGS: MEDIASTINUM: Normal. HEART: Normal size. Coronary artery stents.. PULMONARY VASCULATURE: Normal. LUNGS: Low lung volumes. No infiltrate or pulmonary edema. PLEURAL SPACE: No pleural effusion or pneumothorax. BONE:Degenerative changes in the shoulders and spine. OTHER FINDINGS:Normal. IMPRESSION: No acute pulmonary findings. DATA REPOSITORY: RADIATION DOSE DELIVERED:
[2019-08-05 18:34] LABS: ALT 24 U/L (16-63); AST 22 U/L (15-37); Albumin 4.2 g/dL (3.4-5.0); Alkaline Phosphatase 99 U/L (46-116); Anion Gap 8.9 mmol/L (3-11); BUN 19 mg/dL (7-18); Bilirubin, Total 0.5 mg/dL (0.2-1.0); CO2 28.1 mmol/L (21.0-32.0); CREATININE 1.47 mg/dL (0.70-1.30); Calcium 9.4 mg/dL (8.5-10.1); Chloride 104 mmol/L (98-107); Glucose 117 mg/dL (74-106); Magnesium 2.1 mg/dL (1.8-2.4); Potassium 3.8 mmol/L (3.5-5.1); Sodium 141 mmol/L (136-145); Total Protein 8.6 g/dL (6.4-8.2)
[2019-08-05 18:35] LABS: Troponin I < 0.05 ng/mL (<0.06)
--- NOTE | 2019-08-05 19:28 | DI.VRAD_ITS ---
PROCEDURE INFORMATION: Exam: XR Chest, 2 Views Exam date and time: 08/05/2019 7:14 PM Age: 74 years old Clinical indication: Other: Chest pain; Additional info: Chest pain since this afternoon TECHNIQUE: Imaging protocol: XR of the chest Views: 2 views. COMPARISON: CR XR CHEST 2V PA LATERAL 06/09/2019 8:45 PM FINDINGS: Lungs: Unremarkable. No consolidation. Pleural space: Unremarkable. No pleural effusion. No pneumothorax. Heart/Mediastinum: Unremarkable. No cardiomegaly. Bones/joints: Degenerative changes within thoracic spine. IMPRESSION: No infiltrates or effusions. Dictated and Authenticated by: Parish Weston MD. Ordering:JOHNNY Camacho MD
--- NOTE | 2019-08-05 21:36 | W.ED.GENAD ---
Discharge Plan Disposition Patient Disposition: HOME Discharge Details Chief Complaint: Chest Pain Clinical Impression: Chest pain Primary Care Provider: Yarelis Dumont ED Provider: Doug Concepcion Home Meds and New Rx's Prescriptions: Continued cyclobenzaprine 10 mg Tablet 10 mg PO TID PRNRF: 0 atorvastatin 80 mg Tablet 80 mg PO DAILY RF: 0 cyanocobalamin (vitamin B-12) [Vitamin B-12] 1,000 mcg Tablet 1,000 mcg PO DAILY RF: 0 clopidogrel 75 mg Tablet 75 mg PO DAILY RF: 0 tamsulosin 0.4 mg Capsule 0.4 mg PO DAILY RF: 0 nitroglycerin 0.4 mg Tablet, Sublingual 0.4 mg SUBLINGUAL Q5M PRNRF: 0 omeprazole 20 mg Capsule,Delayed Release(Dr/Ec) 20 mg PO DAILY RF: 0 allopurinol 300 mg Tablet 300 mg PO DAILY RF: 0 colchicine 0.6 mg Tablet 0.6 mg PO DAILY RF: 0 aspirin 81 mg Tablet,Chewable 81 mg PO DAILY RF: 0 cephalexin [Keflex] 500 mg capsule 500 mg PO QID 7 Days Qty: 28 RF: 0 Discharge Instructions Instructions: Chest Pain (ED) Additional Instructions: At this time your chest pain has resolved completely and your cardiac rule out in the ER has been unremarkable. Please watch for new or worsening symptoms and return to the ER for any concerns. I strongly recommend reaching out to your cardiology team tomorrow for prompt outpatient reevaluation. I would like you to be seen sooner than already scheduled in October. Discharge Data Discharge Date/Time-TO BE ENTERED AT DEPARTURE: 08/05/19 21:50 Medical Decision Making This is a pleasant 74-year-old gentleman who presents with his after he developed chest pain while at rest around 1:00 this afternoon. It was left-sided and sharp. He did take 2 nitro and is asymptomatic upon my evaluation. He has a history of GERD, dementia, CAD, stent placement x3 in February 2019, and takes Plavix daily. Symptoms have been going on on nearly a every other day basis since March. Multiple ER visits with normal work-up and no explanation of where his pain is coming from. Denies fever, cough, shortness of breath, radiation of pain, pain or swelling in his legs. Based upon his history and evaluation, low suspicion for ACS, PE, dissection, musculoskeletal discomfort. Very low suspicion for infectious process. Patient does have a history of dementia which does make HPI and evaluation slightly more difficult. Will initiate cardiac work-up here in the ER. Initial work-up in the ER is unremarkable for obvious emergent process. White blood cell count of 5.78 hemoglobin 12.9 hematocrit 39.4 platelet count 245. Creatinine is 1.4 7 which gives a estimated GFR of 46.7, this appears to be near baseline. Initial troponin is less than 0.05. Chest x-ray is unremarkable. Upon reevaluation patient remains asymptomatic. He remains hemodynamically stable. Discussed repeat troponin and EKG at 3-hour sravanthi. Patient and family comfortable with this plan. Repeat EKG performed at [address] reviewed and interpreted with Dr. Rose reveals sinus bradycardia, ventricular to 57. Occasional PVC. No STEMI. No dynamic changes when compared to initial EKG. Repeat troponin is less than 0.05. Patient remains asymptomatic. Patient and family are relieved and are certainly frustrated that this pain continues without clear explanation. I discussed the importance of reaching out to both his primary care provider and cardiology team tomorrow for prompt outpatient reevaluation. I understand he is to be evaluated in October but ideally would be evaluated much sooner than that. She was encouraged to watch for new or worsening symptoms and return immediately to the ER. Patient and family are comfortable this plan and have no additional questions or concerns upon discharge. Upon discharge he was asymptomatic and never has symptoms while under my care Medical Records Medical records reviewed: Yes I reviewed the patient's medical records. Imaging Data Radiologic Study: Attestation: I personally reviewed and interpreted this imaging study as follows: Imaging: X-Ray Radiologist's impression: Chest x-ray negative Lab Data Lab results reviewed: Yes I reviewed the patient's lab results. Lab results narrative: Laboratory Tests Range/Units 08/05/19 08/05/19 08/05/19 18:00 18:00 21:07 WBC (4.4-10.8) k/cumm 5.78 RBC (4.50-6.00) m/cumm 4.13 L Hgb (13.5-17.5) g/dL 12.9 L Hct (40.0-50.0) % 39.4 L MCV (80-95) fL 95.4 H MCH (27.0-33.0) pg 31.2 MCHC (32.0-36.0) g/dL 32.7 RDW (11.8-14.1) % 13.7 Plt Count (130-400) x1000/uL 245 MPV (8.0-11.0) fL 9.6 Immature Gran % % 0.2 Neutrophils % 57.4 Lymphocytes % 26.0 Monocytes % 12.3 Eosinophils % 3.8 Basophils % 0.3 Absolute Neutrophils (1.2-6.7) k/cumm 3.32 Absolute Lymphocytes (1.2-3.4) k/cumm 1.50 Absolute Monocytes (0.11-0.7) k/cumm 0.71 H Absolute Eosinophils (0.0-0.7) k/cumm 0.22 Absolute Basophils (0.0-0.2) k/cumm 0.02 Sodium (136-145) mmol/L 141 Potassium (3.5-5.1) mmol/L 3.8 Chloride (98-107) mmol/L 104 Carbon Dioxide (21.0-32.0) mmol/L 28.1 Anion Gap (3-11) mmol/L 8.9 BUN (7-18) mg/dL 19 H Creatinine (0.70-1.30) mg/dL 1.47 H Estimated GFR/1.73 m2 (mL/min/1.73m2) 46.70 Glucose (74-106) mg/dL 117 H Calcium (8.5-10.1) mg/dL 9.4 Magnesium (1.8-2.4) mg/dL 2.1 Total Bilirubin (0.2-1.0) mg/dL 0.5 AST (15-37) U/L 22 ALT (16-63) U/L 24 Alkaline Phosphatase (46-116) U/L 99 Troponin I (<0.06) ng/mL < 0.05 < 0.05 Total Protein (6.4-8.2) g/dL 8.6 H Albumin (3.4-5.0) g/dL 4.2 ECG Data Attestation: I personally reviewed and interpreted this ECG (s) as follows: Interpretation: EKG performed at 1808, reviewed and interpreted with Dr. Zhong. Sinus rhythm, ventricular of 61. No STEMI. HPI General Mode of arrival: ambulatory. Date/Time Provider Initiated Documentation: 08/05/19 18:09. Limitations to Documentation: no limitations. Information obtained by: patient and family. HPI Narrative: This is a 74-year-old gentleman who presents to the ER with his for chest pain that began around 1:00 this afternoon while at rest. He has a history of CAD, dementia, GERD, anemia, hypokalemia. He had 3 stents placed in February and is followed by cardiology at the [facility]. They report that after the stents were placed starting in March he has had intermittent left-sided sharp chest pain nearly every other day. Today it occurred while at rest, took 2 nitro at home without resolution of the symptoms, but upon my evaluation he is now asymptomatic. The pain is left-sided, sharp, intermittent, does not radiate anywhere. He denies any recent illness or trauma. He denies fever, cough, shortness of breath, numbness, tingling, weakness, abdominal pain, nausea, vomiting, change in bowel or bladder habits. 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 He was seen by his cardiology team, reports having outpatient EKG and echocardiogram which were normal. He is scheduled to be seen again in October by his cardiology team. He denies pain or swelling in his legs. Related Data Home Medications Medication Instructions Recorded Confirmed allopurinol 300 mg PO DAILY 06/09/19 08/05/19 atorvastatin 80 mg PO DAILY 06/09/19 08/05/19 clopidogrel 75 mg PO DAILY 06/09/19 08/05/19 colchicine 0.6 mg PO DAILY 06/09/19 08/05/19 cyanocobalamin (vitamin B-12) 1,000 mcg PO DAILY 06/09/19 08/05/19 [Vitamin B-12] cyclobenzaprine 10 mg PO TID PRN 06/09/19 08/05/19 nitroglycerin 0.4 mg SUBLINGUAL Q5M PRN 06/09/19 08/05/19 omeprazole 20 mg PO DAILY 06/09/19 08/05/19 tamsulosin 0.4 mg PO DAILY 06/09/19 08/05/19 aspirin 81 mg PO DAILY 06/10/19 08/05/19 cephalexin [Keflex] 500 mg PO QID 7 Days #28 cap 06/13/20 06/18/20 Previous Rx's Medication Instructions Recorded cephalexin [Keflex] 500 mg PO QID 7 Days #28 cap 07/31/19 Allergies Allergy/AdvReac Type Severity Reaction Status Date / Time No Known Allergies Allergy Unverified 08/05/19 18:09 General Stated Complaint: Chest Pain MIGNON: 2 Review of Systems Constitutional Constitutional: Denies fatigue, Denies fever(s) and Denies weakness Eyes Eyes: Denies change in vision ENT Ears, Nose, Mouth, and Throat: Denies dizziness and Denies neck pain Cardiovascular Cardiovascular: Denies chest pain and Denies dyspnea Respiratory Respiratory: Denies cough and Denies dyspnea Gastrointestinal Gastrointestinal: Denies abdominal pain, Denies nausea and Denies vomiting Genitourinary Genitourinary: Denies dysuria Musculoskeletal Musculoskeletal: Denies back pain, Denies neck pain, Denies numbness and Denies tingling Integumentary/Breasts Skin/Breast: Denies rash Neurologic Neurologic: Denies dizziness, Denies numbness, Denies tingling and Denies weakness Endocrine Endocrine: Denies fatigue Hematologic/Lymphatic Hematologic/Lymphatic: Reports easy bleeding and Reports easy bruising [facility] Medical History Abdominal aortic aneurysm (Acute) Per [facility] records unchanged on CT/MRI 09/2018, 3.5 cm) BPH (benign prostatic hyperplasia) (Chronic) CAD (coronary artery disease) (Chronic) Carotid artery stenosis (Acute) Chest pain (Resolved) Dementia (Chronic) Essential hypertension (Acute) GERD (gastroesophageal reflux disease) (Chronic) Gout (Chronic) History of hematuria (Acute) Per [facility] notes, negative cystoscopy August 2018 Sensorineural hearing loss (Acute) Surgical History Stented coronary artery (Acute) Social History Smoking/Tobacco Use Status: Never Alcohol Intake: never Drug use: Never Substance use type: does not use Do you feel safe at home: Yes Do you feel safe in your relationship?: Yes Exam Const General: cooperative, healthy appearing, comfortable and no acute distress Orientation: alert and awake [facility] Head: normal to inspection, normocephalic and atraumatic Face and sinus: normal facial exam Mouth: moist mucous membranes Throat: posterior oropharynx normal Eyes Conjunctivae: conjunctivae normal Sclera: sclerae normal Neck Neck: normal visual inspection, full ROM, no lymphadenopathy, no meningeal signs, trachea midline, supple and nontender Chest Chest: normal inspection of the chest and normal palpation of entire chest wall Resp Effort & Inspection: normal respiratory effort and able to speak in complete sentences Auscultation: clear to auscultation bilaterally Cardio Rate: regular rate Rhythm: regular rhythm GI Inspection: normal to inspection Palpation: soft and nontender Auscultation: normal bowel sounds Back/Spine/Pelvis Back: No back tenderness Skin General skin exam: no rashes or lesions noted Neuro General: patient alert, patient awake, moves all extremities and no focal motor deficits Cranial Nerves: CN's II-XI intact bilaterally Cognition: normal cognition Speech: speech normal Gait: normal gait Motor: muscle tone normal throughout and strength 5/5 throughout Sensory Exam: no sensory deficits noted Extrem General: normal to inspection, full ROM, capillary refill normal, no pedal edema, no calf tenderness and normal gait Psych Appearance: grossly normal Mental Status: mental status grossly normal Course Vital Signs Vital signs: Vital Signs Temperature 37.1 C 08/05/19 18:04 Pulse 60 08/05/19 18:04 Respiratory Rate 18 08/05/19 18:04 Blood Pressure 137/76 08/05/19 18:04 Pulse Oximetry 96 08/05/19 18:04 Temperature 37.1 C 08/05/19 18:04 Temperature Source Temporal Artery Scan 08/05/19 18:04 Pulse 56 L 08/05/19 21:01 Pulse 58 L 08/05/19 21:20 Respiratory Rate 15 08/05/19 21:20 Respiratory Effort 08/05/19 18:16 Respiratory Depth Normal 08/05/19 18:16 Respiratory Pattern Normal 08/05/19 18:16 Blood Pressure 117/71 08/05/19 21:01 Blood Pressure Mean 82 08/05/19 21:01 Blood Pressure Position Supine 08/05/19 18:04 Pulse Oximetry 96 08/05/19 21:20 Oxygen Delivery Method Room Air 08/05/19 18:04 Oxygen Flow Rate 0 08/05/19 18:04 Pain Level 5 08/05/19 18:16 Lab/Test Results Lab/Test Results: Laboratory Tests Range/Units 08/05/19 08/05/19 18:00 18:00 WBC (4.4-10.8) k/cumm 5.78 RBC (4.50-6.00) m/cumm 4.13 L Hgb (13.5-17.5) g/dL 12.9 L Hct (40.0-50.0) % 39.4 L MCV (80-95) fL 95.4 H MCH (27.0-33.0) pg 31.2 MCHC (32.0-36.0) g/dL 32.7 RDW (11.8-14.1) % 13.7 Plt Count (130-400) x1000/uL 245 MPV (8.0-11.0) fL 9.6 Immature Gran % % 0.2 Neutrophils % 57.4 Lymphocytes % 26.0 Monocytes % 12.3 Eosinophils % 3.8 Basophils % 0.3 Absolute Neutrophils (1.2-6.7) k/cumm 3.32 Absolute Lymphocytes (1.2-3.4) k/cumm 1.50 Absolute Monocytes (0.11-0.7) k/cumm 0.71 H Absolute Eosinophils (0.0-0.7) k/cumm 0.22 Absolute Basophils (0.0-0.2) k/cumm 0.02 Sodium (136-145) mmol/L 141 Potassium (3.5-5.1) mmol/L 3.8 Chloride (98-107) mmol/L 104 Carbon Dioxide (21.0-32.0) mmol/L 28.1 Anion Gap (3-11) mmol/L 8.9 BUN (7-18) mg/dL 19 H Creatinine (0.70-1.30) mg/dL 1.47 H Estimated GFR/1.73 m2 (mL/min/1.73m2) 46.70 Glucose (74-106) mg/dL 117 H Calcium (8.5-10.1) mg/dL 9.4 Magnesium (1.8-2.4) mg/dL 2.1 Total Bilirubin (0.2-1.0) mg/dL 0.5 AST (15-37) U/L 22 ALT (16-63) U/L 24 Alkaline Phosphatase (46-116) U/L 99 Troponin I (<0.06) ng/mL < 0.05 Total Protein (6.4-8.2) g/dL 8.6 H Albumin (3.4-5.0) g/dL 4.2
[2019-08-05 21:37] LABS: Troponin I < 0.05 ng/mL (<0.06)
== END 2019-08-05 21:50 | disposition home or self-care (01) ==
PROVIDERS: Emergency Provider Physician Assistant; PCP Nurse Practitioner Adult Health
DX: R07.89 Other chest pain (principal); I10 Essential (primary) hypertension; I25.10 Atherosclerotic heart disease of native coronary artery without angina pectoris; Z95.5 Presence of coronary angioplasty implant and graft; Z79.02 Long term (current) use of antithrombotics/antiplatelets; F03.90 Unspecified dementia, unspecified severity, without behavioral disturbance, psychotic disturbance, mood disturbance, and anxiety
CPT/HCPCS: 36415; 80053; 93005; 99285; 71046; 83735; 84484; 85025; 93010

== ENCOUNTER → 2019-08-09 13:26 | Outpatient (BNVA) | payer MEDICARE, SELFPAY | PROVIDERS: PCP Nurse Practitioner Adult Health; Referring Provider Student in an Organized Health Care Education/Training Program; Visit Provider Student in an Organized Health Care Education/Training Program | DX: L03.114 Cellulitis of left upper limb (principal); I10 Essential (primary) hypertension | CPT/HCPCS: 99214 ==

== ENCOUNTER → 2019-09-27 10:53 | Outpatient (BNVA) | payer MEDICARE, SELFPAY | PROVIDERS: PCP Nurse Practitioner Adult Health; Referring Provider Nurse Practitioner Primary Care; Visit Provider Surgery | DX: R69 Illness, unspecified (principal) ==

== ENCOUNTER 2019-11-02 00:38 | Outpatient (CLI) | payer OTHER, MEDICARE, SELFPAY ==
--- NOTE | 2019-11-02 06:55 | DI.CT_ITS ---
EXAM: CT ABDOMEN PELVIS W CLINICAL HISTORY: LUQ mass,ABD WALL LUMP,R22.2, [id number] TECHNIQUE: COMPARISON: No exams were available for comparison FINDINGS: CT examination of the abdomen and pelvis was performed with bolus infusion of 100 cc of Omnipaque 350 . And ingestion of dilute barium. Images obtained through the lung bases are unremarkable. Note is made of coronary artery calcificati on. The liver and spleen appear normal as does the pancreas. Gallbladder and bile ducts are unremarkable. Adrenals appear normal bilaterally. There are multiple bilateral renal cysts. There is no evidence renal calcification or mass. No evidence of hydronephrosis or hydroureter. Urinary bladder is nearl y empty and is thick-walled which may represent chronic bladder outlet obstruction versus cystitis, p lease correlate clinically. There is no evidence of abdominal or pelvic adenopathy. There is an an infrarenal abdominal aortic a neurysm measuring about 38 millimeters in diameter. There is calcified plaque in abdominal aorta and major branch vessels. No gross occlusion. Appendix is nonvisualized but there is no specific evidence of appendicitis.. No evidence diverticul itis or bowel obstruction. Tiny bilateral fat containing inguinal hernias noted. No other significant abdominal wall hernia. N o abdominal wall mass identified. Impression: No evidence of acute process. No abdominal wall hernia or mass identified. If there is a high clini maurizio suspicion of mass additional evaluation with MRI may be considered. RADIATION DOSE DELIVERED: 987.53mGy.cm Total DLP 987.53mGy.cm Total DLP DATA REPOSITORY: All CT scans at this facility are submitted to the National Radiology Data Registry (NRDR) Dose Index Registry (DIR) with the [employer] ([employer]). RADIATION OPTIMIZATION: All CT scans at this facility use at least one of these dose optimization te chniques: automated exposure control; mA and/or kV adjustment per patient size (includes targeted exa ms where dose is matched to clinical indication); or iterative reconstruction.
[2019-11-02 08:54] LABS: CREATININE 1.33 mg/dL (0.70-1.30); Estimated GFR 52.42 (mL/min/1.73m2)
[2019-11-02] MEDS: Omnipaque 350 MG/ML 100 ML BTL IJ (10:17)
== END 2019-11-02 00:58 ==
PROVIDERS: PCP Nurse Practitioner Adult Health; Visit Provider Surgery
DX: R22.2 Localized swelling, mass and lump, trunk (principal); N32.89 Other specified disorders of bladder
CPT/HCPCS: 74177; 82565; J3490

== ENCOUNTER 2020-04-06 17:17 | Emergency (ER) | payer OTHER, MEDICARE, SELFPAY ==
[2020-04-06 17:23] VITALS: BP 143/76; PULSE 57; TEMP 37.1; O2SAT 98
[2020-04-06 17:47] VITALS: RESP 18
--- NOTE | 2020-04-06 18:29 | ED.GENADUL_ITS ---
Discharge Plan Disposition Patient Disposition: HOME Condition: Stable Discharge Details Clinical Impression: Leg swelling Primary Care Provider: Yarelis Dumont ED Provider: Doug Concepcion Home Meds and New Rx's Prescriptions: Continued diclofenac sodium 1 % gel 2 gm TP QID RF: 0 atorvastatin 80 mg Tablet 80 mg PO DAILY RF: 0 cyanocobalamin (vitamin B-12) [Vitamin B-12] 1,000 mcg Tablet 1,000 mcg PO DAILY RF: 0 clopidogrel 75 mg Tablet 75 mg PO DAILY RF: 0 tamsulosin 0.4 mg Capsule 0.4 mg PO DAILY RF: 0 nitroglycerin 0.4 mg Tablet, Sublingual 0.4 mg SUBLINGUAL Q5M PRNRF: 0 allopurinol 300 mg Tablet 300 mg PO DAILY RF: 0 colchicine 0.6 mg Tablet 0.6 mg PO DAILY PRNRF: 0 aspirin 81 mg Tablet,Chewable 81 mg PO DAILY RF: 0 pantoprazole 40 mg Tablet,Delayed Release (Dr/Ec) 40 mg PO DAILY RF: 0 metoprolol succinate 25 mg Tablet Extended Release 24 Hr 25 mg PO DAILY RF: 0 Discharge Instructions Instructions: Leg Edema (ED) Additional Instructions: At this time ultrasound is not available. You are otherwise asymptomatic. A single dose of Lovenox has been given now and I am setting you up for an ultrasound tomorrow morning. They should be contacting you in the morning to set up an ultrasound at your convenience. After the ultrasound you will return and signed into the ER for results. If positive will need treatment for DVT, if negative this is likely musculoskeletal and we discussed compression stockings and elevation. In the meantime please watch for new or worsening symptoms and return to the ER for any concerns. Medical Decision Making 74-year-old gentleman, history of gout developed right knee pain and redness a few days ago, took colchicine and the symptoms resolved completely. Clinically no signs of septic joint, cellulitis, etc. Now with mild diffuse right lower extremity swelling. Sent to the ER for DVT rule out. Patient denies history of DVT. Negative Homans' sign. Without warmth or erythema. Denies fever, chest pain or shortness of breath. Unfortunately it is off hours and ultrasound is not an option. Discussed disposition options with patient and family. Plan is to give a single dose of Lovenox now for prophylactic treatment of potential DVT and I will set up for an ultrasound tomorrow morning. They understand they will get ultrasound and insight into the ER for results, will need anticoagulation if positive, otherwise will treat with elevation and stocking compressions. Patient and family are comfortable this plan and have no additional questions or concerns. They were educated to return to the ER sooner as needed. Medical Records Medical records reviewed: Yes I reviewed the patient's medical records. HPI General Mode of arrival: ambulatory . Date/Time Provider Initiated Documentation: 04/06/20 17:35 . Limitations to Documentation: no limitations . Information obtained by: patient and family . HPI Narrative: This is a 74-year-old gentleman who presents with his , past medical history that includes abdominal aortic aneurysm, BPH, CAD, dementia, hypertension, GERD, gout, dementia, presenting for right lower leg swelling. 3 days ago patient began having a painful right knee. It was warm, red, across the anterior aspect. This presented like his typical gout, took his colchicine and the knee symptoms resolved completely. Subsequently over the past 24-48 hours he has had some right lower leg, calf, swelling. Denies any pain in his calf. Denies any redness in his leg, fevers, chest pain, shortness of breath, history of DVT. Patient does take Plavix. Contacted his primary care provider at the [facility] and sent to the ER for DVT rule out. Related Data Home Medications Medication Instructions Recorded Confirmed allopurinol 300 mg PO DAILY 06/09/19 04/06/20 atorvastatin 80 mg PO DAILY 06/09/19 04/06/20 clopidogrel 75 mg PO DAILY 06/09/19 04/06/20 colchicine 0.6 mg PO DAILY PRN 06/09/19 04/06/20 cyanocobalamin (vitamin B-12) 1,000 mcg PO DAILY 06/09/19 04/06/20 [Vitamin B-12] nitroglycerin 0.4 mg SUBLINGUAL Q5M PRN 06/09/19 04/06/20 tamsulosin 0.4 mg PO DAILY 06/09/19 04/06/20 aspirin 81 mg PO DAILY 06/10/19 04/06/20 diclofenac sodium 1 % topical gel 2 gm TP QID 09/27/19 04/06/20 metoprolol succinate 25 mg PO DAILY 04/06/20 04/06/20 pantoprazole 40 mg PO DAILY 04/06/20 04/06/20 Allergies Allergy/AdvReac Type Severity Reaction Status Date / Time No Known Allergies Allergy Unverified 04/06/20 17:32 General Stated Complaint: Vascular MIGNON: 2 Review of Systems Constitutional Constitutional: Denies fever(s) and Denies headache(s) ENT Ears, Nose, Mouth, and Throat: Denies headache(s) and Denies neck pain Cardiovascular Cardiovascular: Denies chest pain and Denies dyspnea Respiratory Respiratory: Denies cough and Denies dyspnea Gastrointestinal Gastrointestinal: Denies abdominal pain, Denies nausea and Denies vomiting Musculoskeletal Musculoskeletal: Denies back pain, Denies arthralgias, Denies neck pain, Denies numbness and Denies tingling Integumentary/Breasts Skin/Breast: Denies erythema Neurologic Neurologic: Denies headache(s), Denies numbness and Denies tingling Hematologic/Lymphatic Hematologic/Lymphatic: Reports easy bleeding and Reports easy bruising [facility] Medical History Abdominal aortic aneurysm Per [facility] records unchanged on CT/MRI 09/2018, 3.5 cm) BPH (benign prostatic hyperplasia) CAD (coronary artery disease) Carotid artery stenosis Chest pain Dementia Essential hypertension GERD (gastroesophageal reflux disease) Gout History of hematuria Per [facility] notes, negative cystoscopy August 2018 Occlusion and stenosis of unspecified carotid artery Sensorineural hearing loss Short-term memory loss Surgical History History of ventral hernia repair Stented coronary artery Social History Smoking/Tobacco Use Status: Never Smoking risk assessment performed?: Yes Alcohol Intake: never Drug use: Never Substance use type: does not use Current gender identity: male Do you feel safe at home: Yes Do you feel safe in your relationship?: Yes Exam Const General: cooperative, healthy appearing, comfortable and no acute distress Orientation: alert and awake [facility] Head: normal to inspection, normocephalic and atraumatic Eyes General: appearance normal, both eyes and all related structures Conjunctivae: conjunctivae normal Sclera: sclerae normal Neck Neck: normal visual inspection, full ROM, trachea midline and supple Resp Effort & Inspection: normal respiratory effort and able to speak in complete sentences Auscultation: clear to auscultation bilaterally Cardio Rate: regular rate Rhythm: regular rhythm GI Palpation: soft and nontender Back/Spine/Pelvis Back: No back tenderness Skin General skin exam: no rashes or lesions noted Neuro General: patient alert, patient awake, moves all extremities and no focal motor deficits Speech: speech normal Gait: normal gait Motor: muscle tone normal throughout Sensory Exam: no sensory deficits noted Extrem General: full ROM, capillary refill normal, no calf tenderness and normal gait Right lower extremity: full ROM, normal capillary refill, hip/thigh Details: normal to inspection and normal ROM; no tenderness and no swelling, knee Details: normal to inspection and normal ROM; no tenderness, no swelling, no ecchymosis, no deformity and no unusual warmth, lower leg Details: other (Diffuse mild nonpitting lower leg edema. Negative Homans' sign); no erythema, no tenderness, no palpable cords and no unusual warmth, ankle Details: normal to inspection and normal ROM; no tenderness, no swelling and no unusual warmth and foot Details: normal capillary refill, normal to inspection, toes with normal ROM, no edema and vascular exam Details: dorsalis pedis pulse present and normal capillary refill; no tenderness and no unusual warmth Left lower extremity: normal to inspection, full ROM and normal capillary refill Psych Appearance: grossly normal Mental Status: mental status grossly normal Course Vital Signs Vital signs: Vital Signs Temperature 37.1 C 04/06/20 17:23 Pulse 57 L 04/06/20 17:23 Blood Pressure 143/76 H 04/06/20 17:23 Pulse Oximetry 98 04/06/20 17:23 Temperature 37.1 C 04/06/20 17:23 Temperature Source Temporal Artery Scan 04/06/20 17:23 Pulse 57 L 04/06/20 17:23 Respiratory Rate 18 04/06/20 17:47 Respiratory Effort Non-Labored 04/06/20 18:23 Respiratory Depth Normal 04/06/20 17:47 Respiratory Pattern Normal 04/06/20 17:47 Blood Pressure 143/76 H 04/06/20 17:23 Blood Pressure Position Sitting 04/06/20 17:23 Pulse Oximetry 98 04/06/20 17:23 Oxygen Delivery Method Room Air 04/06/20 17:23 Oxygen Flow Rate 0 04/06/20 17:23 Pain Level 0 04/06/20 17:23
[2020-04-06 18:41] VITALS: BP 126/61; PULSE 57; RESP 92; TEMP 36.8; O2SAT 14
[2020-04-06] MEDS: Enoxaparin 100 MG/ML SYR SC (18:43)
== END 2020-04-06 18:55 | disposition home or self-care (01) ==
PROVIDERS: Emergency Provider Physician Assistant; PCP Nurse Practitioner Adult Health
DX: R22.41 Localized swelling, mass and lump, right lower limb (principal); I10 Essential (primary) hypertension
CPT/HCPCS: 96372; 99284; 99283; J1650

== ENCOUNTER 2020-04-07 08:40 | Outpatient (CLI) | payer OTHER, MEDICARE, SELFPAY ==
--- NOTE | 2020-04-07 | DI.US_ITS ---
EXAM: US LOWER EXTREMITY VENOUS RT CLINICAL HISTORY: RLE SWELLING,. TECHNIQUE: Lower extremity venous ultrasound performed using grayscale, color-flow, and spectral Do ppler analysis. COMPARISON: No exams were available for comparison FINDINGS: The common femoral, femoral and popliteal veins demonstrate normal compressibility, augmentation, and color Doppler. The posterior tibial veins are patent. No saphenous vein thrombosis or other superfi cial venous thrombosis is seen. No hematoma or Perry's cyst is seen. IMPRESSION: Negative lower extremity ultrasound. No evidence of DVT. DATA REPOSITORY:
== END 2020-04-07 08:41 ==
LOC: DI 08:43
PROVIDERS: PCP Nurse Practitioner Adult Health; Visit Provider Physician Assistant
DX: R22.41 Localized swelling, mass and lump, right lower limb (principal)
CPT/HCPCS: 93971

== ENCOUNTER 2020-04-07 10:54 | Emergency (ER) | payer OTHER, MEDICARE, SELFPAY ==
[2020-04-07 10:57] VITALS: BP 160/80; PULSE 55; RESP 18; TEMP 36.6; O2SAT 99
--- NOTE | 2020-04-07 11:09 | ED.GENADUL_ITS ---
Discharge Plan Disposition Patient Disposition: HOME Condition: Improving Discharge Details Clinical Impression: Leg edema, right Primary Care Provider: Yarelis Dumont ED Provider: Abelardo Zhong Home Meds and New Rx's Prescriptions: Continued diclofenac sodium 1 % gel 2 gm TP QID RF: 0 atorvastatin 80 mg Tablet 80 mg PO DAILY RF: 0 cyanocobalamin (vitamin B-12) [Vitamin B-12] 1,000 mcg Tablet 1,000 mcg PO DAILY RF: 0 clopidogrel 75 mg Tablet 75 mg PO DAILY RF: 0 tamsulosin 0.4 mg Capsule 0.4 mg PO DAILY RF: 0 nitroglycerin 0.4 mg Tablet, Sublingual 0.4 mg SUBLINGUAL Q5M PRNRF: 0 allopurinol 300 mg Tablet 300 mg PO DAILY RF: 0 colchicine 0.6 mg Tablet 0.6 mg PO DAILY PRNRF: 0 aspirin 81 mg Tablet,Chewable 81 mg PO DAILY RF: 0 pantoprazole 40 mg Tablet,Delayed Release (Dr/Ec) 40 mg PO DAILY RF: 0 metoprolol succinate 25 mg Tablet Extended Release 24 Hr 25 mg PO DAILY RF: 0 Discharge Instructions Additional Instructions: Use compression Paul bandage to right leg 2 to 4 hours/day, with a daily elevation of the leg above the level of the heart. Follow-up with regular doctor if not improving in 3 weeks time. Your ultrasound today did not show evidence of deep vein thrombosis, nor any other acute findings. Continue your routine medications. Return for any acute concerns. Medical Decision Making 74-year-old male seen yesterday for atraumatic right leg swelling without evidence of fever, erythema, or joint stiffness. He was taking a colchicine tablet with resolution at home. He was referred back for outpatient ultrasound today which did not show evidence of DVT and had no other acute findings. No evidence of CHF nor of infection. We will treat with compression and elevation. Discussed with he and his if swelling persists over 3 weeks would recommend a repeat outpatient ultrasound to be obtained through their primary care. He is stable for outpatient management at this time. HPI General Mode of arrival: ambulatory . Date/Time Provider Initiated Documentation: 04/07/20 10:54 . Limitations to Documentation: no limitations . Information obtained by: patient and family . History of Present Illness 74 year old M presents to the emergency department with the chief complaint of R leg swelling, described as mild, Quality is described as constant, and is localized to the right and lower extremity. Patient started experiencing this day(s) and it has been constant. No relieving factors improve symptom(s), No exacerbating factors reported . Patient notes denies chest pain, fever/chills and shortness of breath. Patient did receive the following treatments prior to arrival, none Related Data Home Medications Medication Instructions Recorded Confirmed allopurinol 300 mg PO DAILY 06/09/19 04/06/20 atorvastatin 80 mg PO DAILY 06/09/19 04/06/20 clopidogrel 75 mg PO DAILY 06/09/19 04/06/20 colchicine 0.6 mg PO DAILY PRN 06/09/19 04/06/20 cyanocobalamin (vitamin B-12) 1,000 mcg PO DAILY 06/09/19 04/06/20 [Vitamin B-12] nitroglycerin 0.4 mg SUBLINGUAL Q5M PRN 06/09/19 04/06/20 tamsulosin 0.4 mg PO DAILY 06/09/19 04/06/20 aspirin 81 mg PO DAILY 06/10/19 04/06/20 diclofenac sodium 1 % topical gel 2 gm TP QID 09/27/19 04/06/20 metoprolol succinate 25 mg PO DAILY 04/06/20 04/06/20 pantoprazole 40 mg PO DAILY 04/06/20 04/06/20 Allergies Allergy/AdvReac Type Severity Reaction Status Date / Time No Known Allergies Allergy Unverified 04/07/20 11:00 General Stated Complaint: Recheck MIGNON: 4 Review of Systems Narrative: 6 systems reviewed and otherwise negative [facility] Medical History Abdominal aortic aneurysm Per [place] records unchanged on CT/MRI 09/2018, 3.5 cm) BPH (benign prostatic hyperplasia) CAD (coronary artery disease) Carotid artery stenosis Chest pain Dementia Essential hypertension GERD (gastroesophageal reflux disease) Gout History of hematuria Per [place] notes, negative cystoscopy August 2018 Occlusion and stenosis of unspecified carotid artery Sensorineural hearing loss Short-term memory loss Surgical History History of ventral hernia repair Stented coronary artery Social History Smoking/Tobacco Use Status: Never Smoking risk assessment performed?: Yes Alcohol Intake: never Drug use: Never Substance use type: does not use Current gender identity: male Do you feel safe at home: Yes Do you feel safe in your relationship?: Yes Exam Narrative Exam Narrative: GEN: awake, alert, oriented 3. Pleasant, well groomed, interactive. HEAD: Normocephalic, atraumatic ENT: Mucous membranes moist, oropharynx unremarkable, External ear exam unre markable EYES: PERRL, EOMI NECK: Full ROM, no CARO, no menigismus CHEST/RESP: Nontender, clear to auscultation bilateral, no wheeze/rhonchi/rales CARDIOVASCULAR: RRR, no murmur, rub lydia. 2+ Rad pulse bilateral EXT: Full ROM, right calf swelling, no cords, no joint involvement, no erythema Neuro: Grossly normal neurologic exam, conversant, interactive. Psych: Speech fluent, thoughts congruent, affect normal Course Vital Signs Vital signs: Vital Signs Temperature 36.6 C 04/07/20 10:57 Pulse 55 L 04/07/20 10:57 Respiratory Rate 18 04/07/20 10:57 Blood Pressure 160/80 H 04/07/20 10:57 Pulse Oximetry 99 04/07/20 10:57 Temperature 36.6 C 04/07/20 10:57 Temperature Source Skin 04/07/20 10:57 Pulse 55 L 04/07/20 10:57 Respiratory Rate 18 04/07/20 10:57 Respiratory Effort Non-Labored 04/07/20 11:00 Blood Pressure 160/80 H 04/07/20 10:57 Blood Pressure Position Sitting 04/07/20 10:57 Pulse Oximetry 99 04/07/20 10:57 Oxygen Delivery Method Room Air 04/07/20 10:57 Oxygen Flow Rate 0 04/07/20 10:57 Pain Level 0 04/07/20 10:57
== END 2020-04-07 11:18 | disposition home or self-care (01) ==
PROVIDERS: Emergency Provider Emergency Medicine; PCP Nurse Practitioner Adult Health
DX: R60.0 Localized edema (principal); Z71.2 Person consulting for explanation of examination or test findings; I10 Essential (primary) hypertension
CPT/HCPCS: 99281

== ENCOUNTER 2020-11-02 12:40 | Emergency (ER) | payer OTHER, SELFPAY ==
[2020-11-02 12:51] VITALS: BP 138/66; PULSE 48; RESP 16; TEMP 36.9; O2SAT 98
--- NOTE | 2020-11-02 13:30 | DI.RAD_ITS ---
Exam(s) XR KNEE RT 3V AP,LAT,KAN EXAM: XR KNEE RT 3V AP,LAT,KAN CLINICAL HISTORY: pain. TECHNIQUE: 2D digital imaging was performed of the right knee. Three views obtained. AP, lateral an d PA tunnel views were obtained. COMPARISON: CR,XR XR CHEST 2V PA LATERAL from 08/05/2019 FINDINGS: BONES: No acute fracture is present. No bony destructive lesion is seen. Enthesophyte is seen at the superior patella. JOINTS: The knee is normally aligned. There is a small joint effusion. Small spurs are seen at the p osterior patella. SOFT TISSUE: Atherosclerosis. IMPRESSION: 1. Small joint effusion. 2. Mild degenerative changes. DATA REPOSITORY: RADIATION DOSE DELIVERED:
[2020-11-02 13:32] VITALS: BP 125/88; PULSE 50; RESP 18; TEMP 37; O2SAT 99
--- NOTE | 2020-11-02 13:43 | W.ED.GENAD ---
Discharge Plan Disposition Patient Disposition: HOME Condition: Stable Discharge Details Clinical Impression: Gout, Knee pain, right Primary Care Provider: Yarelis Dumont ED Provider: Phong Membreno Home Meds and New Rx's Prescriptions: New prednisone 20 mg tablet 60 mg PO DAILY 5 Days Qty: 15 RF: 0 Continued diclofenac sodium 1 % gel 2 gm TP QID RF: 0 atorvastatin 80 mg Tablet 80 mg PO HS RF: 0 clopidogrel 75 mg Tablet 75 mg PO DAILY RF: 0 tamsulosin 0.4 mg Capsule 0.4 mg PO DAILY RF: 0 allopurinol 300 mg Tablet 300 mg PO DAILY RF: 0 colchicine 0.6 mg Tablet 0.6 mg PO BID PRNRF: 0 pantoprazole 40 mg Tablet,Delayed Release (Dr/Ec) 40 mg PO DAILY PRNRF: 0 metoprolol succinate 25 mg Tablet Extended Release 24 Hr 25 mg PO DAILY RF: 0 nitroglycerin 0.4 mg Tablet, Sublingual 0.4 mg sublingual PRN PRNRF: 0 Discharge Instructions Instructions: Knee Pain (ED) Additional Instructions: you are likely having a gout flare continue to take 1000mg tylenol every 6 hours as needed for pain if pain continues next week see your primary care provider return to the emergency department for severe worsening pain, fevers or spreading redness Medical Decision Making 75 yo male with hx of gout, gerd, bph, memory loss, who comes in with with several days of right knee pain. They deny any falls or fevers. He is bearing weight though with very mild limp favoring the right leg. HE denies any other symptoms, no abdomen pain, numbness, or leg swelling. HE has mild swelling anteriorly and superior to the right patella. He has full range of motion of the knee and no warmth or erythema. Is tender just superior to the patella. Normal distal sensation and pulses and no calf tenderness. Suspect gout flare as he has had it in the knee in the past per , vs other arthritis. History and exam not consistent with septic joint. No findings to suggest dvt. Will xray to evaluate for possible pathological fracture though unlikely given able to bear weight. xray unremarkable and he remains stable with unchanged exam. Discussed with patient and , will start him on prednisone and return precautions given Differential Diagnosis Differential Diagnosis: gout, arthritis Medical Records Medical records reviewed: Yes I reviewed the patient's medical records. Imaging Data Radiologic Study: Attestation: I personally reviewed and interpreted this imaging study as follows: Imaging: X-Ray Radiologist's impression: IMPRESSION: 1. Small joint effusion. 2. Mild degenerative changes. HPI General Mode of arrival: ambulatory. Date/Time Provider Initiated Documentation: 11/02/20 13:15. Limitations to Documentation: no limitations. Information obtained by: patient and family. History of Present Illness 75 year old M presents to the emergency department with the chief complaint of right knee pain, described as mild, Quality is described as aching, Patient started experiencing this day(s) (3) and it has been constant. Rest improves symptom(s), Movement worsens symptoms . Patient notes no other symptoms.. Patient did receive the following treatments prior to arrival, none Related Data Home Medications Medication Instructions Recorded Confirmed allopurinol 300 mg PO DAILY 06/09/19 11/02/20 atorvastatin 80 mg PO HS 06/09/19 11/02/20 clopidogrel 75 mg PO DAILY 06/09/19 11/02/20 colchicine 0.6 mg PO BID PRN 06/09/19 11/02/20 tamsulosin 0.4 mg PO DAILY 06/09/19 11/02/20 diclofenac sodium 1 % topical gel 2 gm TP QID 09/27/19 11/02/20 metoprolol succinate 25 mg PO DAILY 04/06/20 11/02/20 pantoprazole 40 mg PO DAILY PRN 04/06/20 11/02/20 nitroglycerin 0.4 mg SUBLINGUAL PRN PRN 11/02/20 11/02/20 prednisone 60 mg PO DAILY 5 Days #15 tab 11/02/20 Previous Rx's Medication Instructions Recorded prednisone 60 mg PO DAILY 5 Days #15 tab 11/02/20 Allergies Allergy/AdvReac Type Severity Reaction Status Date / Time No Known Allergies Allergy Unverified 11/02/20 12:54 General Stated Complaint: Orthopedic MIGNON: 3 Review of Systems All systems reviewed & are unremarkable except as noted in HPI and below Constitutional Constitutional: Denies chills, Denies fever(s) and Denies weakness ENT Ears, Nose, Mouth, and Throat: Denies change in voice Cardiovascular Cardiovascular: Denies chest pain and Denies dyspnea Respiratory Respiratory: Denies cough and Denies dyspnea Gastrointestinal Gastrointestinal: Denies abdominal pain, Denies nausea and Denies vomiting Musculoskeletal Musculoskeletal: Denies joint swelling Neurologic Neurologic: Denies weakness [facility] Medical History Abdominal aortic aneurysm Per [place] records unchanged on CT/MRI 09/2018, 3.5 cm) BPH (benign prostatic hyperplasia) CAD (coronary artery disease) Carotid artery stenosis Chest pain Dementia Essential hypertension GERD (gastroesophageal reflux disease) Gout History of hematuria Per [place] notes, negative cystoscopy August 2018 Occlusion and stenosis of unspecified carotid artery Sensorineural hearing loss Short-term memory loss Surgical History History of ventral hernia repair Stented coronary artery Social History Smoking/Tobacco Use Status: Never Smoking risk assessment performed?: Yes Alcohol Intake: never Drug use: Never Substance use type: does not use Current gender identity: male Do you feel safe at home: Yes Do you feel safe in your relationship?: Yes Exam Const General: no acute distress Orientation: alert HENMT Head: normal to inspection Ears: external ears normal General nose exam: external nose normal Mouth: moist mucous membranes Eyes General: appearance normal, both eyes and all related structures Neck Neck: normal visual inspection Resp Effort & Inspection: normal respiratory effort and able to speak in complete sentences Cardio Rate: regular rate Skin General skin exam: no rashes or lesions noted Neuro General: patient alert and patient oriented x3 Extrem General: full ROM and capillary refill normal Psych Mental Status: mental status grossly normal Course Vital Signs Vital signs: Vital Signs Temperature 36.9 C 11/02/20 12:51 Pulse 48 L 11/02/20 12:51 Respiratory Rate 16 11/02/20 12:51 Blood Pressure 138/66 11/02/20 12:51 Pulse Oximetry 98 11/02/20 12:51 Temperature 37 C 11/02/20 13:32 Temperature Source Temporal Artery Scan 11/02/20 13:32 Pulse 50 L 11/02/20 13:32 Respiratory Rate 18 11/02/20 13:32 Respiratory Effort Non-Labored 11/02/20 12:55 Blood Pressure 125/88 11/02/20 13:32 Blood Pressure Position Sitting 11/02/20 12:51 Pulse Oximetry 99 11/02/20 13:32 Oxygen Delivery Method Room Air 11/02/20 12:51 Oxygen Flow Rate 0 11/02/20 12:51 Pain Level 6 11/02/20 13:34
[2020-11-02] MEDS: Acetaminophen 500 MG TAB 1000 MG PO (13:50)
== END 2020-11-02 14:57 | disposition home or self-care (01) ==
PROVIDERS: Emergency Provider Emergency Medicine; PCP Nurse Practitioner Adult Health
DX: M1A.0610 Idiopathic chronic gout, right knee, without tophus (tophi) (principal); M25.561 Pain in right knee; M25.461 Effusion, right knee
CPT/HCPCS: 73562; 99283

== ENCOUNTER 2023-01-13 12:08 | Inpatient (IN) | payer OTHER, SELFPAY ==
[2023-01-13] VITALS (74 sets, daily range): BP systolic 79–157; BP diastolic 55–89; PULSE 56–94; RESP 12–24; TEMP 38–38.2; O2SAT 89–96
--- NOTE | 2023-01-13 11:45 | RT.EKG_ITS ---
APPROVED REPORT Exam: Resting ECG Reason for Exam: Unresponsive Patient Location: E HR:74 bpm ECG Measurements Heart Rate 74 AXIS MN 200 P 33 QRSd 89 QRS -47 QT 376 T 37 QTc 417 Conclusion Sinus rhythm...normal P axis, V-rate 60- 99 Left anterior fascicular block...axis(240,-40), init forces inf
--- NOTE | 2023-01-13 12:09 | W.ED.GENAD ---
Discharge Plan Disposition Patient Disposition: Admit to [facility] Condition: Stable Discharge Details Clinical Impression: COVID-19, Fever, Acute on chronic alteration in mental status Primary Care Provider: Unknown,Unknown ED Provider: Tejal Phipps Home Meds and New Rx's Prescriptions: No Action tamsulosin 0.4 mg Capsule 0.4 mg PO DAILY allopurinol 300 mg Tablet 300 mg PO DAILY nitroglycerin 0.4 mg Tablet, Sublingual 0.4 mg sublingual PRN PRN aspirin [Adult Aspirin Regimen] 81 mg tablet,delayed release (DR/EC) 81 mg PO DAILY sertraline PO DAILY Medical Decision Making 77-year-old male presents to the ER via EMS with a chief complaint of altered mental status incontinent of urine. Patient does have a history of dementia and is nonverbal. According to report he has had a fever at home of 101.5 per his and has been on the couch since yesterday. Decreased level of activity. Upon arrival he is soaked in urine and is nonverbal. Does have a history of carotid artery stenosis, hypertension hearing loss, aortic aneurysm. BGL per EMS prior to arrival was 165. EKG was reviewed by Dr. Schrader ER attending, old EKG available for review no significant change. CBC shows no leukocytosis, lactate slightly elevated at 1.5, CMP shows BUN 26 creatinine 1.5 which is at patient's baseline, glucose 110 liver enzymes are slightly elevated with AST of 112 ALT 68 lipase is within normal limits at 47: Initial troponin less than 50. Urinalysis shows large blood no leukocytes no nitrites 5-10 RBCs moderate mucus culture is pending at this time. COVID flu RSV chest x-ray and head CT ordered. 1334: Spoke with and son who report patient fell asleep on the couch last night and they were unable to get him up this am. She denies any known falls or head injuries. She denies any recent illness, he normally walks on his own and has a history of dementia. He does have home health approximately 3 times a week. Covid positive. 1 GM Rocephin ordered, will consider Remdesevir, will page hospitalist for admission. 1418: Head CT shows sinusitis, otherwise negative for anything acute, Remdesevir 200 mg ordered. Hospitalist paged. 1518: Spoke with Dr. Macias and hospitalist team who agrees to accept patient for admission. This text was generated using JoMaJaation system, please disregard any oddities of phrase or misspellings. Medical Records Medical records reviewed: Yes I reviewed the patient's medical records. Imaging Data Radiologic Study: Imaging: CT Scan Radiologist's impression: FINDINGS: The examination is limited due to patient motion artifact. Tracheobronchial tree: Patent where visualized. Pulmonary parenchyma: No consolidation or dominant measurable mass. There is a 4 mm nodule associated with the right minor fissure. There is poor inspiration with crowding of the pulmonary vasculature. Atelectatic changes are seen in the dependent portions of the lungs. Mediastinum and Rakel: No dominant adenopathy or fluid collection. The esophagus is unremarkable. Thyroid gland: Unremarkable. Pleura: No effusion or pneumothorax. Heart: Cardiomegaly. Coronary artery calcification and/or stents. No pericardial effusion. Aorta: Thoracic aorta non-dilated. Atherosclerosis. Upper abdomen: There is diverticulosis of the colon without evidence of acute diverticulitis. Lymph nodes: Within normal limits. Soft tissues: Unremarkable. Bones:Within normal limits for the patient's age. IMPRESSION: 1. Poor inspiration with low lung volumes and atelectatic changes seen in the dependent portions of the lungs. 2. No focal consolidating infiltrates. 3. 4 mm right perifissural nodule. For low risk patients, no routine follow-up is required. For high risk patients (history of smoking or other risk factors), CT scan of the chest in 12 months may be obtained. (Cate et al, 2017). 4. Findings were discussed with the emergency department at 2:40 p.m. on 01/13/2023. Radiologic Study #2: Imaging: CT Scan Radiologist's impression: CLINICAL HISTORY: AMS, fever. TECHNIQUE: Imaging Protocol: Axial computed tomography images with coronal and sagittal reformatted images were created and reviewed COMPARISON: No exams were available for comparison FINDINGS: Ventricles and Extra axial spaces: Normal in size and morphology for the patient's age. Hemorrhage: None. Cerebral parenchyma: There are areas of decreased attenuation in the white matter consistent with microvascular ischemic disease. No acute territorial infarct is seen. Midline shift: None. Brainstem/Cerebellum: Normal. Calvarium: Normal. Visualized Paranasal sinuses/Mastoids: There is mucosal thickening seen in the ethmoid air cells on the right maxillary sinus. The remaining visualized paranasal sinuses are clear as are the mastoid air cells. Soft Tissues: Unremarkable. IMPRESSION: 1. No acute intracranial process. 2. Mild paranasal sinus disease. 3. Findings were discussed with the emergency department at 2:09 p.m. on 01/13/2023. Lab Data Lab results reviewed: Yes I reviewed the patient's lab results. Labs: 01/13/23 13:10 Blood Blood Culture - Pending 01/13/23 12:51 Urine - Reflex from Ua Urine Culture - Pending 01/13/23 12:34 Blood Blood Culture - Pending Laboratory Tests Range/Units 01/13/23 01/13/23 01/13/23 12:34 12:51 13:06 WBC (4.4-10.8) 10^3/uL 5.92 RBC (4.36-5.78) 10^6/uL 4.45 Hgb (13.5-17.5) g/dL 14.6 Hct (40.0-50.0) % 43.4 MCV (80-95) fL 98 H MCH (27.0-33.0) pg 32.8 MCHC (32.0-36.0) % 33.6 RDW (11.8-14.1) % 12.9 Plt Count (130-400) 10^3/uL 149 MPV (8.0-11.0) fL 9.4 Immature Gran % 0.2 Neutrophils % 73.9 Lymphocytes % 6.8 Monocytes % 18.9 Eosinophils % 0.0 Basophils % 0.2 Nucleated RBC % (0.0-0.3) % 0.0 Absolute Neutrophils (1.2-6.7) 10^3/uL 4.38 Absolute Lymphocytes (1.2-3.4) 10^3/uL 0.40 L Absolute Monocytes (0.1-0.8) 10^3/uL 1.12 H Absolute Eosinophils (0.0-0.7) 10^3/uL 0.00 Absolute Basophils (0.0-0.2) 10^3/uL 0.01 PT Cancelled INR Cancelled APTT Cancelled VBG Lactate (0.6-1.4) mmol/L 1.5 H Sodium (136-145) mmol/L 144 Potassium (3.5-5.1) mmol/L 4.4 Chloride (98-107) mmol/L 106 Carbon Dioxide (21.0-32.0) mmol/L 27.1 Anion Gap (3-11) mmol/L 10.9 BUN (7-18) mg/dL 26 H Creatinine (0.70-1.30) mg/dL 1.5 H Est GFR (CKD-EPI 2020) (mL/min/1.73m2) 47.36 Glucose (74-106) mg/dL 110 H Calcium (8.5-10.1) mg/dL 10.0 Magnesium (1.8-2.4) mg/dL 2.4 Total Bilirubin (0.2-1.0) mg/dL 0.5 AST (15-37) U/L 112 H ALT (16-63) U/L 68 H Alkaline Phosphatase (46-116) U/L 86 Troponin I (<or=60) ng/L < 50 Total Protein (6.4-8.2) g/dL 8.7 H Albumin (3.4-5.0) g/dL 4.0 Lipase (16-77) U/L 47 Urine Color (Yellow) Yellow Urine Clarity (Clear) Sl Cloudy Urine pH (5-8) 5.0 Ur Specific [place] (1.005-1.025) >= 1.030 H Urine Protein (Negative) mg/dL >=300 H Urine Ketones (Negative) mg/dL Negative Urine Blood (Negative) Large H Urine Nitrite (Negative) Negative Urine Bilirubin (Negative) Negative Urine Urobilinogen (Up to 0.2) mg/dL 0.2 Ur Leukocyte Esterase (Negative) Negative Urine RBC (0-2) HPF 5-10 H Urine WBC (0-5) HPF 0-2 Ur Epithelial Cells (Negative) HPF Rare Urine Crystals (Negative) HPF Negative Urine Bacteria (Negative) HPF Moderate Urine Casts (Negative) LPF 0-2 Hyaline Urine Mucus (Negative) Moderate Ur Culture Indicated? Yes Urine Glucose (Negative) mg/dL Negative COVID-19 Source Nasopharynx SARS-CoV-2 (PCR) (Negative) Positive A Influenza Type A (PCR) (Negative) Negative Influenza Type B (PCR) (Negative) Negative RSV (PCR) (Negative) Negative Range/Units 01/13/23 13:10 WBC (4.4-10.8) 10^3/uL RBC (4.36-5.78) 10^6/uL Hgb (13.5-17.5) g/dL Hct (40.0-50.0) % MCV (80-95) fL MCH (27.0-33.0) pg MCHC (32.0-36.0) % RDW (11.8-14.1) % Plt Count (130-400) 10^3/uL MPV (8.0-11.0) fL Immature Gran % Neutrophils % Lymphocytes % Monocytes % Eosinophils % Basophils % Nucleated RBC % (0.0-0.3) % Absolute Neutrophils (1.2-6.7) 10^3/uL Absolute Lymphocytes (1.2-3.4) 10^3/uL Absolute Monocytes (0.1-0.8) 10^3/uL Absolute Eosinophils (0.0-0.7) 10^3/uL Absolute Basophils (0.0-0.2) 10^3/uL PT 12.0 H INR 1.2 H APTT 34.1 H VBG Lactate (0.6-1.4) mmol/L Sodium (136-145) mmol/L Potassium (3.5-5.1) mmol/L Chloride (98-107) mmol/L Carbon Dioxide (21.0-32.0) mmol/L Anion Gap (3-11) mmol/L BUN (7-18) mg/dL Creatinine (0.70-1.30) mg/dL Est GFR (CKD-EPI 2020) (mL/min/1.73m2) Glucose (74-106) mg/dL Calcium (8.5-10.1) mg/dL Magnesium (1.8-2.4) mg/dL Total Bilirubin (0.2-1.0) mg/dL AST (15-37) U/L ALT (16-63) U/L Alkaline Phosphatase (46-116) U/L Troponin I (<or=60) ng/L Total Protein (6.4-8.2) g/dL Albumin (3.4-5.0) g/dL Lipase (16-77) U/L Urine Color (Yellow) Urine Clarity (Clear) Urine pH (5-8) Ur Specific [place] (1.005-1.025) Urine Protein (Negative) mg/dL Urine Ketones (Negative) mg/dL Urine Blood (Negative) Urine Nitrite (Negative) Urine Bilirubin (Negative) Urine Urobilinogen (Up to 0.2) mg/dL Ur Leukocyte Esterase (Negative) Urine RBC (0-2) HPF Urine WBC (0-5) HPF Ur Epithelial Cells (Negative) HPF Urine Crystals (Negative) HPF Urine Bacteria (Negative) HPF Urine Casts (Negative) LPF Urine Mucus (Negative) Ur Culture Indicated? Urine Glucose (Negative) mg/dL COVID-19 Source SARS-CoV-2 (PCR) (Negative) Influenza Type A (PCR) (Negative) Influenza Type B (PCR) (Negative) RSV (PCR) (Negative) HPI General Mode of arrival: EMS. Date/Time Provider Initiated Documentation: 01/13/23 12:09. Limitations to Documentation: altered mental status. Information obtained by: EMS, RN notes reviewed and old records reviewed. HPI Narrative: 77-year-old male presents to the ER via EMS with a chief complaint of altered mental status incontinent of urine. Patient does have a history of dementia and is nonverbal. According to report he has had a fever at home of 101.5 per his and has been on the couch since yesterday. Decreased level of activity. Upon arrival he is soaked in urine and is nonverbal. Does have a history of carotid artery stenosis, hypertension hearing loss, aortic aneurysm. BGL per EMS prior to arrival was 165. Related Data Home Medications Medication Instructions Recorded Confirmed allopurinol 300 mg tablet 300 mg PO DAILY 06/09/19 01/13/23 tamsulosin 0.4 mg capsule 0.4 mg PO DAILY 06/09/19 01/13/23 nitroglycerin 0.4 mg sublingual 0.4 mg sublingual PRN PRN 11/02/20 01/13/23 tablet aspirin 81 mg tablet,delayed 81 mg PO DAILY 01/13/23 01/13/23 release (Adult Aspirin Regimen) sertraline PO DAILY 01/13/23 Allergies Allergy/AdvReac Type Severity Reaction Status Date / Time No Known Allergies Allergy Unverified 01/13/23 12:55 General MIGNON: 3 Review of Systems Narrative: History supplied by EMS, patient non verbal, Also history received by . Unobtainable due to mental status PFSH All Active Problems (Updated 01/13/23 @ 15:05 by Tejal Phipps NP) Acute on chronic alteration in mental status (Acute) Fever (Acute) COVID-19 (Acute) Knee pain, right (Acute) Abdominal wall lump (Acute) Occlusion and stenosis of unspecified carotid artery (Acute) Short-term memory loss (Acute) Hypokalemia (Acute) Normocytic anemia (Acute) BPH (benign prostatic hyperplasia) (Chronic) GERD (gastroesophageal reflux disease) (Chronic) Dementia (Chronic) CAD (coronary artery disease) (Chronic) Gout (Chronic) Medical History History of hematuria Per [place] notes, negative cystoscopy August 2018 Abdominal aortic aneurysm Per [place] records unchanged on CT/MRI 09/2018, 3.5 cm) Sensorineural hearing loss Essential hypertension Carotid artery stenosis Surgical History History of ventral hernia repair Stented coronary artery Social History Smoking/Tobacco Use Status: Never Smoking risk assessment performed?: Yes Alcohol Intake: never Drug use: Never Substance use type: does not use Current gender identity: male Do you feel safe at home: Yes Do you feel safe in your relationship?: Yes Exam Narrative Exam Narrative: Constitutional: Patient does not open eyes to stimulus, he does withdraw from pain, he does groan when stimulated. Appears stated age. Normal body habitus. Upon arrival he is soaked in urine and cold and shivering. Head: Normocephalic, no trauma. Eyes: Pupils PERRL, Red reflex noted, EOM's intact. Eyelids symmetrical without lesions, discharge, or swelling. ENT: Bilateral TM's WNL, External ear normal to inspection, no mastoid TTP, swelling, or erythema, Nasal turbinates WNL, no nasal discharge. Normal dentition, Posterior pharynx WNL, no exudate. Chest: RRR, Normal S1, S2, distal pulses intact. Resp: Lungs diminished to auscultation bilaterally, no wheezes, rales, or rhonchi. Abdomen: Soft, non-distended, Normoactive bowel sounds all 4 quads. Musculoskeletal: Unable to assess gait does have some resting tremors noted lower extremities and upper extremities. Skin: No suspicious rashes or lesions. Capillary refill less than 2 sec. Neurologic: No facial droop, patient does not follow commands responds to pain. At baseline is nonverbal but is able to perform ADLs. Hematologic/Lymphatic: No ecchymosis, no lymphadenopathy. Course Lab/Test Results Lab/Test Results: 01/13/23 11:57 Blood Blood Culture - Pending 01/13/23 11:57 Blood Blood Culture - Pending
[2023-01-13] MEDS: ACETAMINOPHEN 1,000 MG/100 ML BTL 400 MG IVPB ×2 (12:40→21:00)
[2023-01-13] MEDS: Lidocaine 2% Jelly 6 ML SYR (12:41)
[2023-01-13] MEDS: Normal Saline 500 ML IV (12:41)
[2023-01-13 12:42] LABS: Lactate 1.5 mmol/L (0.6-1.4)
[2023-01-13 12:46] LABS: Abs Immature Grans 0.01 10^3/uL (0.0-0.06); Absolute Basophil Count 0.01 10^3/uL (0.0-0.2); Absolute Monocyte Count 1.12 10^3/uL (0.1-0.8); Absolute Neutrophil Count 4.38 10^3/uL (1.2-6.7); Basophils % 0.2; HCT 43.4 % (40.0-50.0); HGB 14.6 g/dL (13.5-17.5); Immature Grans % 0.2; Lymphocytes % 6.8; MCH 32.8 pg (27.0-33.0); MCHC 33.6 % (32.0-36.0); MCV 98 fL (80-95); MPV 9.4 fL (8.0-11.0); Monocytes % 18.9; Neutrophils % 73.9; Platelet Count 149 10^3/uL (130-400); RBC 4.45 10^6/uL (4.36-5.78); RDW 12.9 % (11.8-14.1); RDW-SD 46.5 fL; WBC 5.92 10^3/uL (4.4-10.8)
[2023-01-13 12:58] LABS: Bilirubin Negative (Negative); Blood Large (Negative); Clarity Sl Cloudy (Clear); Glucose Negative (Negative); Ketones Negative (Negative); Leukocyte Esterase Negative (Negative); Nitrite Negative (Negative); Specific Gravity >= 1.030 (1.005-1.025); Urobilinogen 0.2 mg/dL (Up to 0.2)
--- NOTE | 2023-01-13 13:00 | DI.RAD_ITS ---
Exam(s) XR PORTABLE CHEST AP EXAM: XR PORTABLE CHEST AP CLINICAL HISTORY: Fever, AMS TECHNIQUE: 2D digital imaging was performed of the chest. One image was obtained. An AP view was ob tained. COMPARISON: CR,XR XR CHEST 2V PA LATERAL from 08/05/2019 FINDINGS: MEDIASTINUM: Normal. HEART: Normal. PULMONARY VASCULATURE: Normal. LUNGS: There are low lung volumes. No focal consolidating infiltrates are seen. PLEURAL SPACE: No pleural effusion or pneumothorax. BONE:Within normal limits for the patient's age. OTHER FINDINGS:Normal. IMPRESSION: No acute pulmonary findings. DATA REPOSITORY: RADIATION DOSE DELIVERED:
[2023-01-13 13:05] LABS: Bacteria Moderate HPF (Negative); C & S Indicated? Yes; Casts 0-2 Hyaline LPF (Negative); Crystals Negative HPF (Negative); Epithelial Cells Rare HPF (Negative); Mucus Moderate (Negative); WBC 0-2 HPF (0-5)
[2023-01-13 13:12] LABS: ALT 68 U/L (16-63); AST 112 U/L (15-37); Alkaline Phosphatase 86 U/L (46-116); Anion Gap 10.9 mmol/L (3-11); BUN 26 mg/dL (7-18); Bilirubin, Total 0.5 mg/dL (0.2-1.0); CO2 27.1 mmol/L (21.0-32.0); CREATININE 1.5 mg/dL (0.70-1.30); Chloride 106 mmol/L (98-107); Estimated GFR 47.36 (mL/min/1.73m2); Glucose 110 mg/dL (74-106); Lipase 47 U/L (16-77); Magnesium 2.4 mg/dL (1.8-2.4); Potassium 4.4 mmol/L (3.5-5.1); Sodium 144 mmol/L (136-145); Total Protein 8.7 g/dL (6.4-8.2); Troponin I < 50 ng/L (<or=60)
[2023-01-13 13:28] LABS: INR 1.2 (0.9-1.1); PTT Activated 34.1 sec (23.6-32.8)
--- NOTE | 2023-01-13 13:40 | DI.CT_ITS ---
Exam(s) CT HEAD WO EXAM: CT HEAD WO CLINICAL HISTORY: AMS, fever. TECHNIQUE: Imaging Protocol: Axial computed tomography images with coronal and sagittal reformatted images were created and reviewed COMPARISON: No exams were available for comparison FINDINGS: Ventricles and Extra axial spaces: Normal in size and morphology for the patient's age. Hemorrhage: None. Cerebral parenchyma: There are areas of decreased attenuation in the white matter consistent with ike rovascular ischemic disease. No acute territorial infarct is seen. Midline shift: None. Brainstem/Cerebellum: Normal. Calvarium: Normal. Visualized Paranasal sinuses/Mastoids: There is mucosal thickening seen in the ethmoid air cells on t he right maxillary sinus. The remaining visualized paranasal sinuses are clear as are the mastoid ai r cells. Soft Tissues: Unremarkable. IMPRESSION: 1. No acute intracranial process. 2. Mild paranasal sinus disease. 3. Findings were discussed with the emergency department at 2:09 p.m. on 01/13/2023. RADIATION DOSE DELIVERED: Total DLP DATA REPOSITORY: All CT scans at this facility are submitted to the National Radiology Data Registry (NRDR) Dose Index Registry (DIR) with the [employer] (A[employer]). RADIATION OPTIMIZATION: All CT scans at this facility use at least one of these dose optimization te chniques: automated exposure control; mA and/or kV adjustment per patient size (includes targeted exa ms where dose is matched to clinical indication); or iterative reconstruction.
[2023-01-13 13:51] LABS: Influenza A PCR Negative (Negative); Influenza B PCR Negative (Negative); RSV PCR Negative (Negative)
[2023-01-13 13:53] LABS: COVID-19 PCR Positive (Negative); Source Nasopharynx
[2023-01-13] MEDS: cefTRIAXone 1 GM/50 ML BAG IVPB ×2 (13:53→19:34)
[2023-01-13] MEDS: REMDESIVIR 200 MG in Normal Saline 250 ML 250 MG IVPB (14:40)
--- NOTE | 2023-01-13 14:50 | DI.CT_ITS ---
Exam(s) CT CHEST WO EXAM: CT CHEST WO CLINICAL HISTORY: AMS, Fever. TECHNIQUE: Imaging protocol: Axial computed tomography images were obtained and coronal and sagittal reformatted images were created and reviewed. COMPARISON: CT CT ABDOMEN PELVIS W from 11/02/2019 CR XR PORTABLE CHEST AP from 01/13/2023 FINDINGS: The examination is limited due to patient motion artifact. Tracheobronchial tree: Patent where visualized. Pulmonary parenchyma: No consolidation or dominant measurable mass. There is a 4 mm nodule associated with the right minor fissure. There is poor inspiration with crowding of the pulmonary vasculature. Atelectatic changes are seen in the dependent portions of the lungs. Mediastinum and Rakel: No dominant adenopathy or fluid collection. The esophagus is unremarkable. Thyroid gland: Unremarkable. Pleura: No effusion or pneumothorax. Heart: Cardiomegaly. Coronary artery calcification and/or stents. No pericardial effusion. Aorta: Thoracic aorta non-dilated. Atherosclerosis. Upper abdomen: There is diverticulosis of the colon without evidence of acute diverticulitis. Lymph nodes: Within normal limits. Soft tissues: Unremarkable. Bones:Within normal limits for the patient's age. IMPRESSION: 1. Poor inspiration with low lung volumes and atelectatic changes seen in the dependent portions of t he lungs. 2. No focal consolidating infiltrates. 3. 4 mm right perifissural nodule. For low risk patients, no routine follow-up is required. For hig h risk patients (history of smoking or other risk factors), CT scan of the chest in 12 months may be obtained. (Cate et al, 2017). 4. Findings were discussed with the emergency department at 2:40 p.m. on 01/13/2023. RADIATION DOSE DELIVERED: Total DLP Total DLP DATA REPOSITORY: All CT scans at this facility are submitted to the National Radiology Data Registry (NRDR) Dose Index Registry (DIR) with the [employer] ([employer]). RADIATION OPTIMIZATION: All CT scans at this facility use at least one of these dose optimization te chniques: automated exposure control; mA and/or kV adjustment per patient size (includes targeted exa ms where dose is matched to clinical indication); or iterative reconstruction.
--- NOTE | 2023-01-13 15:20 | HPE_ITS ---
Date of service: 01/13/23 Time of Service: 15:20 Assessment and Plan Assessment and plan (1) Encephalopathy due to 2019 novel coronavirus: Status: Acute Assessment and plan: admit to med/surg started on remdesivir (2) Sepsis due to COVID-19: Status: Acute Assessment and plan: fever, altered mental status, and elevated lactate given IV fluid bolus, will continue LR @ 100/hr overnight and reassess in am will trend lactate ceftriaxone given while urine culture and blood cultures pending no infiltrates on imaging, no oxygen requirements (3) COVID-19: Status: Acute Assessment and plan: started remdesivir, no respiratory symptoms. oxygenating in the mid 90's on room air. continue to closely monitor (4) Dementia: Status: Chronic Assessment and plan: anticipate delirium while hospitalized and in setting of infection. fall precautions palliative consult for goals of care and code status discussed with DR Macias History of Present Illness History of Present Illness Chief Complaint: increased confusion Narrative: demented patient who presents to the emergency department by EMS after found him to be altered this morning reported as increased lethargy unable to get up off the couch. She states she started noticing symptoms last night. He was noted to have a temperature of 101. Workup in the emergency department was most concerning for UTI at first as he had been incontinent of urine which was very foul-smelling. Urine culture is pending but also noted to be COVID- positive. He has no symptoms of respiratory distress and there are no infiltrates on imaging which included x-ray and CT. He has no oxygen requirements he was given ceftriaxone 1 g IV and remdesivir 200 mg IV and bolused with IV fluids. hospitalist was requested to admit patient states able to eat regular fluids and thin liquids with no difficulty but pills need to be liquid or crushed. Review of Systems All systems reviewed & are unremarkable except as noted in HPI and below and Unobtainable due to mental status (Obtained from as patient has severe advanced dementia and is unable to) PFSH All Active Problems (Updated 01/13/23 @ 18:32 by SIDDHARTH MARTE) Sepsis due to COVID-19 (Acute) Encephalopathy due to 2019 novel coronavirus (Acute) Acute on chronic alteration in mental status (Acute) Fever (Acute) COVID-19 (Acute) Knee pain, right (Acute) Abdominal wall lump (Acute) Occlusion and stenosis of unspecified carotid artery (Acute) Short-term memory loss (Acute) Hypokalemia (Acute) Normocytic anemia (Acute) BPH (benign prostatic hyperplasia) (Chronic) GERD (gastroesophageal reflux disease) (Chronic) Dementia (Chronic) CAD (coronary artery disease) (Chronic) Gout (Chronic) Medical History History of hematuria Per [facility] notes, negative cystoscopy August 2018 Abdominal aortic aneurysm Per [facility] records unchanged on CT/MRI 09/2018, 3.5 cm) Sensorineural hearing loss Essential hypertension Carotid artery stenosis Surgical History History of ventral hernia repair Stented coronary artery Social History Smoking/Tobacco Use Status: Never Smoking risk assessment performed?: Yes Alcohol Intake: never Drug use: Never Substance use type: does not use Current gender identity: male Do you feel safe at home: Yes Do you feel safe in your relationship?: Yes Meds Allergies and Home Medications Allergies Allergy/AdvReac Type Severity Reaction Status Date / Time No Known Allergies Allergy Unverified 01/13/23 12:55 Home Medications Medication Instructions Recorded Confirmed Type allopurinol 300 mg tablet 300 mg PO DAILY 06/09/19 01/13/23 History tamsulosin 0.4 mg capsule 0.4 mg PO DAILY 06/09/19 01/13/23 History nitroglycerin 0.4 mg sublingual 0.4 mg sublingual PRN PRN 11/02/20 01/13/23 History tablet aspirin 81 mg tablet,delayed 81 mg PO DAILY 01/13/23 01/13/23 History release (Adult Aspirin Regimen) sertraline PO DAILY 01/13/23 History Exam Const General: lethargic Nutritional Appearance: overweight Orientation: confused Limitations: altered mental status [facility] Head: normal to inspection, normocephalic and atraumatic General nose exam: external nose normal Face and sinus: normal facial exam Mouth: oral mucosae normal Neck Neck: no JVD Chest Chest: normal inspection of the chest Resp Effort & Inspection: normal respiratory effort Auscultation: no wheezes Cardio Rate: regular rate Rhythm: regular rhythm GI Inspection: normal to inspection and obesity Palpation: soft Skin General skin exam: no rashes or lesions noted Extrem General: normal to inspection Results Labs 01/13/23 12:34 01/13/23 12:34 Labs: Laboratory Results - last 24 hr 01/13/23 01/13/23 01/13/23 12:34 12:51 13:06 WBC 5.92 RBC 4.45 Hgb 14.6 Hct 43.4 MCV 98 H MCH 32.8 MCHC 33.6 RDW 12.9 Plt Count 149 MPV 9.4 Immature Gran % 0.2 Neutrophils % 73.9 Lymphocytes % 6.8 Monocytes % 18.9 Eosinophils % 0.0 Basophils % 0.2 Nucleated RBC % 0.0 Absolute Neutrophils 4.38 Absolute Lymphocytes 0.40 L Absolute Monocytes 1.12 H Absolute Eosinophils 0.00 Absolute Basophils 0.01 PT Cancelled INR Cancelled APTT Cancelled VBG Lactate 1.5 H Sodium 144 Potassium 4.4 Chloride 106 Carbon Dioxide 27.1 Anion Gap 10.9 BUN 26 H Creatinine 1.5 H Est GFR (CKD-EPI 2020) 47.36 Glucose 110 H Calcium 10.0 Magnesium 2.4 Total Bilirubin 0.5 AST 112 H ALT 68 H Alkaline Phosphatase 86 Troponin I < 50 Total Protein 8.7 H Albumin 4.0 Lipase 47 Urine Color Yellow Urine Clarity Sl Cloudy Urine pH 5.0 Ur Specific [place] >= 1.030 H Urine Protein >=300 H Urine Ketones Negative Urine Blood Large H Urine Nitrite Negative Urine Bilirubin Negative Urine Urobilinogen 0.2 Ur Leukocyte Esterase Negative Urine RBC 5-10 H Urine WBC 0-2 Ur Epithelial Cells Rare Urine Crystals Negative Urine Bacteria Moderate Urine Casts 0-2 Hyaline Urine Mucus Moderate Ur Culture Indicated? Yes Urine Glucose Negative COVID-19 Source Nasopharynx SARS-CoV-2 (PCR) Positive A Influenza Type A (PCR) Negative Influenza Type B (PCR) Negative RSV (PCR) Negative 01/13/23 13:10 WBC RBC Hgb Hct MCV MCH MCHC RDW Plt Count MPV Immature Gran % Neutrophils % Lymphocytes % Monocytes % Eosinophils % Basophils % Nucleated RBC % Absolute Neutrophils Absolute Lymphocytes Absolute Monocytes Absolute Eosinophils Absolute Basophils PT 12.0 H INR 1.2 H APTT 34.1 H VBG Lactate Sodium Potassium Chloride Carbon Dioxide Anion Gap BUN Creatinine Est GFR (CKD-EPI 2020) Glucose Calcium Magnesium Total Bilirubin AST ALT Alkaline Phosphatase Troponin I Total Protein Albumin Lipase Urine Color Urine Clarity Urine pH Ur Specific [place] Urine Protein Urine Ketones Urine Blood Urine Nitrite Urine Bilirubin Urine Urobilinogen Ur Leukocyte Esterase Urine RBC Urine WBC Ur Epithelial Cells Urine Crystals Urine Bacteria Urine Casts Urine Mucus Ur Culture Indicated? Urine Glucose COVID-19 Source SARS-CoV-2 (PCR) Influenza Type A (PCR) Influenza Type B (PCR) RSV (PCR) Last Vital Signs Temp 38.0 C H 01/13/23 12:04 Pulse 73 01/13/23 14:00 Resp 15 01/13/23 14:20 BP 113/73 01/13/23 14:00 Pulse Ox 93 01/13/23 12:04 Time Spent Time spent with Patient: 40-54 minutes Time was spent: preparing to see the patient(eg.review tests), obtaining and/or reviewing separately otained hiistory, ordering medications,tests, procedures, referring, communicating with other health care manager, indepentently interpreting results and counseling the patient ()
[2023-01-13 15:29] LABS: Troponin I < 50 ng/L (<or=60)
[2023-01-13 15:52] LABS: Procalcitonin < 0.1 ng/mL
[2023-01-13 19:22] LABS: Lactate 1.1 mmol/L (0.6-1.4)
[2023-01-13] MEDS: Normal Saline Flush 10 ML SYR IVP (21:01)
[2023-01-13] MEDS: Lactated Ringers 1,000 ML 100 ML IV (21:36)
[2023-01-14] VITALS (74 sets, daily range): BP systolic 81–125; BP diastolic 50–76; PULSE 56–91; RESP 16–20; TEMP 37.2–38; O2SAT 89–98
[2023-01-14] MEDS: Normal Saline Flush 10 ML SYR IVP ×2 (00:36→15:35)
[2023-01-14] MEDS: ACETAMINOPHEN 1,000 MG/100 ML BTL 400 MG IVPB ×2 (05:26→15:47)
[2023-01-14 07:03] LABS: Abs Immature Grans 0.02 10^3/uL (0.0-0.06); Absolute Lymphocyte Count 0.54 10^3/uL (1.2-3.4); Absolute Monocyte Count 0.98 10^3/uL (0.1-0.8); Absolute Neutrophil Count 3.33 10^3/uL (1.2-6.7); HCT 38.5 % (40.0-50.0); HGB 12.7 g/dL (13.5-17.5); Immature Grans % 0.4; Lymphocytes % 11.1; MCH 32.3 pg (27.0-33.0); MCV 98 fL (80-95); MPV 10.1 fL (8.0-11.0); Monocytes % 20.1; Neutrophils % 68.4; Platelet Count 128 10^3/uL (130-400); RBC 3.93 10^6/uL (4.36-5.78); RDW 12.9 % (11.8-14.1); RDW-SD 46.4 fL; WBC 4.87 10^3/uL (4.4-10.8)
[2023-01-14 07:29] LABS: Anion Gap 11.3 mmol/L (3-11); BUN 32 mg/dL (7-18); CO2 24.7 mmol/L (21.0-32.0); CREATININE 1.6 mg/dL (0.70-1.30); Calcium 8.8 mg/dL (8.5-10.1); Chloride 109 mmol/L (98-107); Estimated GFR 43.83 (mL/min/1.73m2); Glucose 96 mg/dL (74-106); Potassium 3.9 mmol/L (3.5-5.1); Sodium 145 mmol/L (136-145)
[2023-01-14] MEDS: Aspirin 81 MG CHEW CH (07:39)
[2023-01-14] MEDS: Tamsulosin 0.4 MG CAPCR PO (07:39)
[2023-01-14] MEDS: cefTRIAXone 2 GM/50 ML BAG IVPB (07:40)
--- NOTE | 2023-01-14 08:44 | PDOC.CMIN ---
Date of service: 01/14/23 Time of Service: 08:44 Care Management Initial Assmt Initial Assessment REASON FOR HOSPITALIZATION:: encephalopathy PREVIOUS FUNCTIONAL STATUS/SOCIAL/FAMILY SUPPORTS:: Chris lives in a double-wide mobile home in [place] with his Jen. They have 2 children; their son Osmin lives locally and their daughter lives in [place]. 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 He is independent with ambulation and is able to feed himself but requires assistance with other ADLs such as dressing and bathing. Chris is a and receives his medical care at the [facility] in [place]. He has caregivers through the [place] 3 times a week for about 6 hours a day. CURRENT FUNCTIONAL STATUS:: Chris is on Covid isolation so CM was unable to meet with him in person. CM did speak to his Jen who was able to provide the necessary information. She stated that Chris remains ambulatory but requires a great deal of care and assistance. She shared that she is in the process of applying for [place] [facility] Medicaid for him and will be meeting with [facility] Mounter Mendez Michael soon for assistance and advice. Jen verbalized that she is willing to have Chris return home as long as he is ambulatory and does not require too much physical assistance. She did state that he will likely need [place] [facility] care in the future. ADVANCE DIRECTIVES:: On file. [facility] Has patient been provided with info about the portal/API?: Yes Did the patient sign up for the portal?: No CODE STATUS:: Full Code INSURANCE COVERAGE / FINANCIAL ISSUES:: Medicare [place] CURRENT HOME/COMMUNITY SERVICES/EQUIPMENT:: caregivers through [facility] ([place] payer source) for 6 hours a day 3 times a week. PRIMARY CARE PHYSICIAN:: through [place] [facility] in [place], [place]. POTENTIAL DISCHARGE NEEDS:: follow up with PCP and plan of care PATIENT/FAMILY EDUCATION NEEDS:: review of dis charge instructions, limitations, follow up plan, discuss Ask me Three TRANSPORTATION:: to be determined by disposition PLAN:: Anticipate Chris will discharge home with a resumption of caregiver services, with the possible addition of HH nursing and/or PT. He will follow up with his PCP an plan of care and transport with his . CM will follow and assess for discharge planning concerns. PFSH All Active Problems (Updated 01/14/23 @ 15:58 by Tara Watson MD) Caregiver stress (Acute) Frailty syndrome in geriatric patient (Acute) Advanced care planning/counseling discussion (Acute) Palliative care encounter (Acute) Sepsis due to COVID-19 (Acute) Encephalopathy due to 2019 novel coronavirus (Acute) Acute on chronic alteration in mental status (Acute) Fever (Acute) COVID-19 (Acute) Knee pain, right (Acute) Abdominal wall lump (Acute) Occlusion and stenosis of unspecified carotid artery (Acute) Short-term memory loss (Acute) Hypokalemia (Acute) Normocytic anemia (Acute) BPH (benign prostatic hyperplasia) (Chronic) GERD (gastroesophageal reflux disease) (Chronic) Dementia (Chronic) CAD (coronary artery disease) (Chronic) Gout (Chronic) Medical History [facility], [facility] 2018 Abdominal aortic aneurysm Per [place] records unchanged on CT/MRI 09/2018, 3.5 cm) Sensorineural hearing loss Essential hypertension Carotid artery stenosis Surgical History History of ventral hernia repair Stented coronary artery Social History Smoking/Tobacco Use Status: Never Smoking risk assessment performed?: Yes Alcohol Intake: never Drug use: Never Substance use type: does not use Housing: house Current gender identity: male Do you feel safe at home: Yes Do you feel safe in your relationship?: Yes
--- NOTE | 2023-01-14 12:33 | PCNE_ITS ---
Date of service: 01/14/23 Time of Service: 12:34 History of Present Illness Narrative: [facility] 77[facility] yesterday due to weakness, change in mental status and fever felt to be secondary to acute COVID-19 infection. [facility]; other medical problems include coronary artery disease(STENTS 2019), history of gout, carotid artery stenosis, GERD, AAA (3.5 cm on 2019 report), hypertension Pateint unable to give any history. ALl history and answers from . First signs of dementia 5 years ago. Gradual decline. 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 Walked outside last fall and winter, but stopped wanting to go out this summer. NO longer recognizes son and . Now talking in single words (never was much of a talker) This is his first hospitalization since 2019 For the last year, up multiple times a year, stopped going out and now. getting 5 or so hours a sleep a night. (SHe sometimes naps during the day.). SH eis exausted and not sure she can go on any linger..Son can help on occasion. No wandering. Rarely lashes out. Care Team: Primary Care physician: [facility], recently changed (not yet assigned). 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 Addtional services: W[place]king on [facility]oices for Care, she feels that he needs to be in chcf very soon. OR is helping her with application. Sujatadiego CLINICAL CARE LEADER comes to the house 3 days a week for 20 hours total. Helps with shower, feeds him , exercises, toilets him. No direct VA services (i.e. no VA pallaitive Care team or primary care at home team). ALL ANSWERS FROM : Impression of currents health status:Getting worse over the last year, notes worsening incontinence, speaking much less, no longer recognizing family anymore (this is new since early summer) What bothers you the most: THE incontinence. () What worries you the most: I hate to have to put him in a chcf, but getting too hard to care for him at home. Goals: Enjoys: listens to music, especially classic country and western Enjoys when son and grandson come to visit. ENjoys eating. Used to like to go out to restaurant or shopping, now walks too slow. Looks at pics in magazine. Still enjoys going out for walks, less so than previous. 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 Current information preferences: Function: Ambulation: Walks very slowly, ADLs: Needs help with bathing, dressing. SIgnificant urinary incontienece, still continent of bowel. Up 3+ times a night. SHe has to get up with him and help him go to the bathroom. Feeds himself. iADLs: REcently unable to help at all. Hearing:Hard of hearing, will not wear hearing aids. Vision: OK Cognition: Down to single words Falls: None Palliative Performance Scale % Ambulation Activity and Evidence of Disease Self Care Intake Level of Consciousness 100 Full Normal activity, no evidence of disease Full Normal Full 90 Full Normal activity, some evidence of disease Full Normal Full 80 Full Normal activity with effort, some evidence of disease Full Normal or reduced Full 70 Reduced Unable to do normal work, some evidence of disease Full Normal or reduced Full 60 Reduced Unable to do hobby or some housework, significant disease Occasional assist necessary Normal or reduced Full or confusion 50 Mainly sit/lie Unable to do any work, extensive disease Considerable assistance required Normal or reduced Full or confusion 40 Mainly in bed Unable to do any work, extensive disease Mainly assistance Normal or reduced Full, drowsy, or confusion 30 Totally bed bound Unable to do any work, extensive disease Total care Reduced Full, drowsy, or confusion 20 Totally bed bound Unable to do any work, extensive disease Total care Minimal sips Full, drowsy, or confusion 10 Totally bed bound Unable to do any work, extensive disease Total care Mouth care only Drowsy or coma 0 - - - - Patient Score: 50-60 Functional Assessment Scale (FAST) 1 No difficulty either subjectively or objectively 2 Complains of forgetting location of objects. Subjective work difficulties 3 Decreased job functioning evident to co-workers. Difficulty in traveling to new locations. Decreased organizational capacity* 4 Decreased ability to perform complex task, (e.g., planning dinner for guests, handling personal finances, such as forgetting to pay bills, etc) 5 Requires assistance in choosing proper clothing to wear for the day, season, or occasion, (e.g., pt may wear the same clothing repeatedly unless supervised*) 6 Occasionally or more frequently over the past weeks for the following*: A) Improperly putting on clothes without assistance or cueing B) Unable to bathe properly (not able to choose proper water temp) C) Inability to handle mechanics of toileting (e.g., forget to flush the toilet, does not wipe properly or properly dispose of toilet tissue) D) Urinary Incontinence E) Fecal Incontinence 7 A) Ability to speak limited to approximately < 6 intelligible different words in the course of an average day or in the course of an intensive interview. B) Speech ability is limited to the use of a single intelligible word in an average day or in the course of an intensive interview C) Ambulatory ability is lost (cannot walk without personal assistance) D) Cannot sit up without assistance (e.g., the individual will fall over if there are not lateral rests [arms] on the chair) E) Loss of ability to smile. F) Loss of ability to hold up head independently *Scored primarily on information obtained from a knowledgeable informant. Patient Score:6D (prior to admission) Spiritual history: Not important Palliative review of systems: Pain: Occasional gout. Not recently Dyspnea: SOme MORALES GI symptoms:COnstipation often, Metamucil PRN Appetite: WEight had been stable, good appetite. Depression:On SSRI Anxiety: None Emotional Distress: Spiritual/Existential Distress: Labs: Cr: 1.6 (previous range 1.33?1.6) Liver panel: Mild elevation in transaminases Albumin: CBC: Hemoglobin 12.7 Advanced Care Planning: Advanced Directive: C 2020 OR advanced directive: See attached document Health Care Agent: 2020 OR advanced directive: Enzo, spouse; alternate is Osmin Anthony son COLST: See COLST from today Limitations: Assessment and Plan Assessment and plan (1) Palliative care encounter: Status: Acute Assessment and plan: 77-year-old gentleman with mid-to-late stage Alzheimer's disease. describes significant decline in function over the last year with estimated FAST score 60 in the week prior to admission, walking extremely slowly, unable to dress self or engage in any chores or parts of chores, only speaking in single words. Now admitted with COVID infection causing increased confusion and weakness. Today we had a goals of care discussion and discussed advance care planning. Discussed his current diagnosis, recent trajectory, and prognosis. is having significant caregiver stress. Even though she has 20 hours a week of assistance in the home, she is only able to get 5 or less hours of sleep at night because he wakes up 3 or more times a night. She and her son have realized that he will soon need to be placed in a correction facility. They are working on qualifying him for chcf admission with a family caseworker from counseling on aging. At risk for delirium: -Important to try and have patient have as much human contact as possible despite diagnosis of acute COVID infection. -He enjoys classic country western music . Recommend getting device from case management (iPad) that can be used to play music in his room that he enjoys. -Making sure that is properly donned so that she does not get COVID and can continue to visit him. Advance care planning/goals of care: See HPI for full discussion of list of goals. We discussed the procedure of CPaR, actual mechanical process, rate of success in restoring heartbeat, short and long-term side effects in survivors (including likely decreased physical and cognitive functioning). Questions were answered. I recommended that given patient's goals, I felt that CPR and intubation did not align with patient's goals. responded that I do not think he would want to have CPR or be on a breathing machine . She also thinks he would not want to have a breathing tube. We also discussed whether he would want to come to the hospital. This is pertinent discussion even for scenario where he is living long-term in correction facility. She felt that he preferred not to be in the hospital but at this time if he had a medical condition that could not be treated at home or at correction facility, she would want him be to transferred to the ED for evaluation and treatment. She would prefer if he is not admitted to the ICU. She would consider further limitations as his dementia progresses. Based on above discussion, COLST form was written up todayAs DNR/DNI, transfer to the hospital for evaluation and treatment. Avoid ICU if possible. Hospitalist KYMBERLY Meza APRN is aware. Copy will be [facility] to the [facility] as well. Caregiver stress: Supportive counseling today. Reviewed other options including looking again at [facility] (he rejected 2 years ago). is beginning talks with the [place] social work program coordinator/family caseworker to look for additional supports or for help with correction facility placement. Encouraged her to take naps during the day when possible and to ask friends and family for help. Talked about eating healthy foods and making sure to spend time with others. Discharge planning: As per case management and (2) Advanced care planning/counseling discussion: Status: Acute (3) Dementia: Status: Chronic (4) Frailty syndrome in geriatric patient: Status: Acute (5) Encephalopathy due to 2019 novel coronavirus: Status: Acute (6) Caregiver stress: Status: Acute PFS All Active Problems (Updated 01/14/23 @ 15:58 by Tara Watson MD) Caregiver stress (Acute) Frailty syndrome in geriatric patient (Acute) Advanced care planning/counseling discussion (Acute) Palliative care encounter (Acute) Sepsis due to COVID-19 (Acute) Encephalopathy due to 2019 novel coronavirus (Acute) Acute on chronic alteration in mental status (Acute) Fever (Acute) COVID-19 (Acute) Knee pain, right (Acute) Abdominal wall lump (Acute) Occlusion and stenosis of unspecified carotid artery (Acute) Short-term memory loss (Acute) Hypokalemia (Acute) Normocytic anemia (Acute) BPH (benign prostatic hyperplasia) (Chronic) GERD (gastroesophageal reflux disease) (Chronic) Dementia (Chronic) CAD (coronary artery disease) (Chronic) Gout (Chronic) Medical History History of hematuria Per [facility] notes, negative cystoscopy August 2018 Abdominal aortic aneurysm Per [facility] records unchanged on CT/MRI 09/2018, 3.5 cm) Sensorineural hearing loss Essential hypertension Carotid artery stenosis Surgical History History of ventral hernia repair Stented coronary artery Social History Smoking/Tobacco Use Status: Never Smoking risk assessment performed?: Yes Alcohol Intake: never Drug use: Never Substance use type: does not use Housing: house Current gender identity: male Do you feel safe at home: Yes Do you feel safe in your relationship?: Yes Exam Narrative Exam Narrative: Elderly man, mildly overweight. Observe through window of ICU. Currently receiving bed bath from nursing staff. Not interviewed. Results Last Vital Signs Temp 37.2 C 01/14/23 07:45 Pulse 57 L 01/14/23 12:01 Resp 16 01/14/23 07:45 BP 113/69 01/14/23 12:01 Pulse Ox 95 01/14/23 12:05 Labs 01/14/23 06:10 01/14/23 06:10 Labs: Laboratory Results - last 24 hr 01/13/23 01/13/23 01/13/23 12:34 12:51 13:06 WBC 5.92 RBC 4.45 Hgb 14.6 Hct 43.4 MCV 98 H MCH 32.8 MCHC 33.6 RDW 12.9 Plt Count 149 MPV 9.4 Immature Gran % 0.2 Neutrophils % 73.9 Lymphocytes % 6.8 Monocytes % 18.9 Eosinophils % 0.0 Basophils % 0.2 Nucleated RBC % 0.0 Absolute Neutrophils 4.38 Absolute Lymphocytes 0.40 L Absolute Monocytes 1.12 H Absolute Eosinophils 0.00 Absolute Basophils 0.01 PT Cancelled INR Cancelled APTT Cancelled VBG Lactate 1.5 H Sodium 144 Potassium 4.4 Chloride 106 Carbon Dioxide 27.1 Anion Gap 10.9 BUN 26 H Creatinine 1.5 H Est GFR (CKD-EPI 2020) 47.36 Glucose 110 H Calcium 10.0 Magnesium 2.4 Total Bilirubin 0.5 AST 112 H ALT 68 H Alkaline Phosphatase 86 Troponin I < 50 Total Protein 8.7 H Albumin 4.0 Lipase 47 Procalcitonin < 0.1 Urine Color Yellow Urine Clarity Sl Cloudy Urine pH 5.0 Ur Specific [place] >= 1.030 H Urine Protein >=300 H Urine Ketones Negative Urine Blood Large H Urine Nitrite Negative Urine Bilirubin Negative Urine Urobilinogen 0.2 Ur Leukocyte Esterase Negative Urine RBC 5-10 H Urine WBC 0-2 Ur Epithelial Cells Rare Urine Crystals Negative Urine Bacteria Moderate Urine Casts 0-2 Hyaline Urine Mucus Moderate Ur Culture Indicated? Yes Urine Glucose Negative COVID-19 Source Nasopharynx SARS-CoV-2 (PCR) Positive A Influenza Type A (PCR) Negative Influenza Type B (PCR) Negative RSV (PCR) Negative 01/13/23 01/13/23 01/13/23 13:10 15:05 17:14 WBC RBC Hgb Hct MCV MCH MCHC RDW Plt Count MPV Immature Gran % Neutrophils % Lymphocytes % Monocytes % Eosinophils % Basophils % Nucleated RBC % Absolute Neutrophils Absolute Lymphocytes Absolute Monocytes Absolute Eosinophils Absolute Basophils PT 12.0 H INR 1.2 H APTT 34.1 H VBG Lactate 1.1 Sodium Potassium Chloride Carbon Dioxide Anion Gap BUN Creatinine Est GFR (CKD-EPI 2020) Glucose Calcium Magnesium Total Bilirubin AST ALT Alkaline Phosphatase Troponin I < 50 Total Protein Albumin Lipase Procalcitonin Urine Color Urine Clarity Urine pH Ur Specific [place] Urine Protein Urine Ketones Urine Blood Urine Nitrite Urine Bilirubin Urine Urobilinogen Ur Leukocyte Esterase Urine RBC Urine WBC Ur Epithelial Cells Urine Crystals Urine Bacteria Urine Casts Urine Mucus Ur Culture Indicated? Urine Glucose COVID-19 Source SARS-CoV-2 (PCR) Influenza Type A (PCR) Influenza Type B (PCR) RSV (PCR) 01/14/23 06:10 WBC 4.87 RBC 3.93 L Hgb 12.7 L Hct 38.5 L MCV 98 H MCH 32.3 MCHC 33.0 RDW 12.9 Plt Count 128 L MPV 10.1 Immature Gran % 0.4 Neutrophils % 68.4 Lymphocytes % 11.1 Monocytes % 20.1 Eosinophils % 0.0 Basophils % 0.0 Nucleated RBC % 0.0 Absolute Neutrophils 3.33 Absolute Lymphocytes 0.54 L Absolute Monocytes 0.98 H Absolute Eosinophils 0.00 Absolute Basophils 0.00 PT INR APTT VBG Lactate Sodium 145 Potassium 3.9 Chloride 109 H Carbon Dioxide 24.7 Anion Gap 11.3 H BUN 32 H Creatinine 1.6 H Est GFR (CKD-EPI 2020) 43.83 Glucose 96 Calcium 8.8 Magnesium Total Bilirubin AST ALT Alkaline Phosphatase Troponin I Total Protein Albumin Lipase Procalcitonin Urine Color Urine Clarity Urine pH Ur Specific [place] Urine Protein Urine Ketones Urine Blood Urine Nitrite Urine Bilirubin Urine Urobilinogen Ur Leukocyte Esterase Urine RBC Urine WBC Ur Epithelial Cells Urine Crystals Urine Bacteria Urine Casts Urine Mucus Ur Culture Indicated? Urine Glucose COVID-19 Source SARS-CoV-2 (PCR) Influenza Type A (PCR) Influenza Type B (PCR) RSV (PCR)
--- NOTE | 2023-01-14 14:26 | W.PM.PROGNOT ---
Date of Service Date of service: 01/14/23 Time of Service: 14:27 Assessment and Plan Assessment and plan (1) Encephalopathy due to 2019 novel coronavirus: Status: Acute Assessment and plan: admit to med/surg started on remdesivir (2) Sepsis due to COVID-19: Status: Acute Assessment and plan: severe, with fever, tachycardia, altered mental status, and elevated lactate given IV fluid bolus, will continue LR @ 100/hr overnight and reassess in am will trend lactate ceftriaxone given while urine culture and blood cultures pending no infiltrates on imaging, no oxygen requirements (3) COVID-19: Status: Acute Assessment and plan: started remdesivir, no respiratory symptoms. oxygenating in the mid 90's on room air. continue to closely monitor (4) Dementia: Status: Chronic Assessment and plan: anticipate delirium while hospitalized and in setting of infection. fall precautions palliative consult for goals of care and code status discussed with DR Macias Subjective Subjective Interval history since last seen: remains minimally responsive, not following commands, not taking PO Exam Const Nutritional Appearance: overweight Limitations: altered mental status HENWI Head: normal to inspection, normocephalic and atraumatic General nose exam: external nose normal Face and sinus: normal facial exam Mouth: oral mucosae normal Neck Neck: no JVD Chest Chest: normal inspection of the chest Resp Effort & Inspection: normal respiratory effort Auscultation: no wheezes Cardio Rate: regular rate Rhythm: regular rhythm GI Inspection: normal to inspection and obesity Palpation: soft Skin General skin exam: no rashes or lesions noted Extrem General: normal to inspection Objective Last Vital Signs Temp 37.3 C 01/14/23 12:30 Pulse 73 01/14/23 12:30 Resp 18 01/14/23 12:30 BP 113/69 01/14/23 12:30 Pulse Ox 92 01/14/23 13:45 Laboratory Results - last 24 hr 01/13/23 01/13/23 01/13/23 12:34 15:05 17:14 WBC RBC Hgb Hct MCV MCH MCHC RDW Plt Count MPV Immature Gran % Neutrophils % Lymphocytes % Monocytes % Eosinophils % Basophils % Nucleated RBC % Absolute Neutrophils Absolute Lymphocytes Absolute Monocytes Absolute Eosinophils Absolute Basophils VBG Lactate 1.1 Sodium Potassium Chloride Carbon Dioxide Anion Gap BUN Creatinine Est GFR (CKD-EPI 2020) Glucose Calcium Troponin I < 50 Procalcitonin < 0.1 01/14/23 06:10 WBC 4.87 RBC 3.93 L Hgb 12.7 L Hct 38.5 L MCV 98 H MCH 32.3 MCHC 33.0 RDW 12.9 Plt Count 128 L MPV 10.1 Immature Gran % 0.4 Neutrophils % 68.4 Lymphocytes % 11.1 Monocytes % 20.1 Eosinophils % 0.0 Basophils % 0.0 Nucleated RBC % 0.0 Absolute Neutrophils 3.33 Absolute Lymphocytes 0.54 L Absolute Monocytes 0.98 H Absolute Eosinophils 0.00 Absolute Basophils 0.00 VBG Lactate Sodium 145 Potassium 3.9 Chloride 109 H Carbon Dioxide 24.7 Anion Gap 11.3 H BUN 32 H Creatinine 1.6 H Est GFR (CKD-EPI 2020) 43.83 Glucose 96 Calcium 8.8 Troponin I Procalcitonin Time Spent with Patient Time Spent with Patient: 35-49 minutes Time was spent: preparing to see the patient(eg.review tests), obtaining and/or reviewing separately otained hiistory, ordering medications,tests, procedures, indepentently interpreting results and counseling the patient ()
[2023-01-14] MEDS: Enoxaparin 40 MG/0.4 ML SYR SC (14:42)
[2023-01-14] MEDS: Lactated Ringers 1,000 ML 80 ML IV (14:42)
[2023-01-14] MEDS: REMDESIVIR 100 MG in Normal Saline 250 ML 250 MG IVPB (17:21)
[2023-01-15] VITALS (15 sets, daily range): BP systolic 83–113; BP diastolic 50–73; PULSE 60–77; RESP 18–22; TEMP 36.8–37.1; O2SAT 92–96
[2023-01-15] MEDS: Lactated Ringers 1,000 ML 80 ML IV (05:20)
--- NOTE | 2023-01-15 08:50 | W.PM.PROGNOT ---
Date of Service Date of service: 12/18/22 Time of Service: 08:51 Assessment and Plan Assessment and plan (1) Encephalopathy due to 2019 novel coronavirus: Status: Acute Assessment and plan: No worsenign of symptoms, no neuro deficis, will continue remdesivir (2) Sepsis due to COVID-19: Status: Acute Assessment and plan: Intially febrile and tachycardic, with slight lactic acidosis , those symptoms resolved, still mentally altered, lactate 1.1 VSS , IVF at 80 cc/hr considered stopping but patient needed an additional bolus of LR 250 cc for hypotension and reduced u/o ceftriaxone on going , awaiting urine culture and blood cultures for 48-72 hours with no growth, afebrile Patient remains on RA (3) COVID-19: Status: Acute Assessment and plan: Will continue remdesivir for 4 doses total ; no respiratory symptoms, no O2 requirement, saturation remains in the mid 90's on room air. continue to closely monitor Precautions maintained (4) Dementia: Status: Chronic Assessment and plan: patient still not as baseline as per spouse but progressing No acute delirium or agitation at this time; might progress to this state as the patient has dementia, is hopitalized and had a ongoing infection Maintain fall precautions, will consult with PT, not appropriate for PT at this time; considering new referral as getting close to baseline Palliative consult for goals of care and code status initiated on 01/14 and recommendations as per Dr. Watson's note: visit with spouse, with proper donning for COVID, music as per taste d/t risk of delirium Decision to make re: home vs placement and goals of care Reviewed other options including looking again at [facility] (he rejected 2 years ago). is beginning talks with the [place] social sciences chair/employment evaluator/case manager to look for additional supports or for help with shelter facility placement. (5) On deep vein thrombosis (DVT) prophylaxis: Status: Acute Assessment and plan: On LMWH (6) Discharge planning issues: Status: Acute Assessment and plan: Might need rehabilitation : See palliative care notes discussed with Dr. Mcginnis Subjective Subjective Patient reports: no new complaints, feels better, tolerating liquids well, tolerating a regular diet, voiding w/o difficulty, flatus, bowel movement and afebrile; denies diarrhea, blood in stool, vomiting, shortness of breath or fever Exam Narrative Exam Narrative: Constitutional The patient lying in bed comfortable but rigid, poor interraction re: dementia and additional condition, passive for the interview. The patient is well groomed without acute distress, on RA HENMT: Head is atraumatic, normocephalic, no lymphadenopathy. Facial structures with normal appearance Eyes: Well aligned, does not follow commands to move his eyes but can follow Neck: Normal ROM, no meningeal signs Neuro:alert and confused, No neurological focal deficit Chest:Chest is symmetrical and normal appearance Resp: Normal respiratory pattern, speaks in full sentences, unlabored breathing, diminshed bases but clear otherwise Cardio: regular rhythm, S1, S2 distant , no murmur, capillary refill<3 sec., bilateral radial and dorsalis pedis pulses are positive, palpable GI: Abdomen is not distended, soft and non tender, bowel sounds are present : Negative Costovertebral angle tenderness, no bladder distension, ramírez in place Back/spine/Pelvis: No back tenderness, normal alignment Integumentary:Stage II pressure ulcers to bilat. buttock near intergluteal fold, Extremities: strength 5/5 to bilateral upper extremities, 3.5 lower ext. Psych: RASS 0, congruent mood and flat affect. Objective Last Vital Signs Temp 37 C 01/15/23 01:38 Pulse 68 01/15/23 01:38 Resp 22 01/15/23 01:38 BP 100/60 01/15/23 01:38 Pulse Ox 94 01/15/23 01:38 Time Spent with Patient Time Spent with Patient: >50 minutes Time was spent: preparing to see the patient(eg.review tests), ordering medications,tests, procedures, referring, communicating with other health healthcare translator, indepentently interpreting results, counseling the patient and care coordination
[2023-01-15] MEDS: Aspirin 81 MG CHEW CH (09:09)
[2023-01-15] MEDS: Allopurinol 300 MG TAB PO (09:10)
[2023-01-15] MEDS: cefTRIAXone 2 GM/50 ML BAG IVPB (09:11)
[2023-01-15] MEDS: Enoxaparin 40 MG/0.4 ML SYR SC (09:12)
--- NOTE | 2023-01-15 11:39 | PT.INNT ---
PT Notes Visit Reasons: Sepsis in room. Patient resting in bed comfortably, eyes closed. Attempted several times for over 15 minutes to engage patient for therapy but to no avail. He did open his eyes once and then went back to sleeping again. Per Jen, this was the reason they decided to take him to the hospital on Friday. Typically before hospital admission, stated that patient would need minimal cueing and would get up from bed with no physical assistance in the morning. adds that this year showed significant overall decline in patient which had required more supervision and close guidance from and caregiver. indicated that since starting back in March of this year, the caregiver has come in late in the morning and she had ended up having to take care of his morning care/shower/dressing. She is hoping that ultimately, should his condition continue to worsen, that he be placed in a SNF as a LTC. was advised that PT will continue to attempt to check in on patient with the hope that his alertness level and ability to be engaged will be more favorable as his medical condition improves. Patient was seen from 11:10-11:32 AM but could not follow instructions nor could he participate in PT at this time. No charge was billed for this visit.
--- NOTE | 2023-01-15 12:38 | PHA.REVIEW2 ---
Pharmacy Admission Review Admission Clinical Review Admission Pharmacy Review: (Updated 01/14/23 @ 15:58 by Traa Watson MD) Caregiver stress (Acute) Frailty syndrome in geriatric patient (Acute) Advanced care planning/counseling discussion (Acute) Palliative care encounter (Acute) Sepsis due to COVID-19 (Acute) Encephalopathy due to 2019 novel coronavirus (Acute) Acute on chronic alteration in mental status (Acute) Fever (Acute) COVID-19 (Acute) No Known Allergies Allergy (Unverified 01/13/23 12:55) Resuscitation Status DNR/DNI Height 5 ft 10.08 in Weight 99.3 kg Pharmacy Admission Review Renal Dosing Renal Dosing: BUN 32 mg/dL (7-18) H 01/14/23 06:10 Creatinine 1.6 mg/dL (0.70-1.30) H 01/14/23 06:10 Medications needing adjustments: Reviewed (crcl = 45, adjustments not needed at this time. Monitor for changes in kidney fxn, addition of medications that may need renal dosing)) Anticoagulation Anticoagulation: Hgb 12.7 g/dL (13.5-17.5) L 01/14/23 06:10 Hct 38.5 % (40.0-50.0) L 01/14/23 06:10 Plt Count 128 10^3/uL (130-400) L 01/14/23 06:10 INR 1.2 (0.9-1.1) H 01/13/23 13:10 Creatinine 1.6 mg/dL (0.70-1.30) H 01/14/23 06:10 DVT Prophylaxis: Reviewed Medications: Enoxaparin (40 mg daily) Therapeutic Anticoagulation: N/A Opiate Usage Evaluate Pain Scale/Pains Meds: N/A (not on any opiates) Relevant Labs Relevant Labs: Sodium 145 mmol/L (136-145) 01/14/23 06:10 Potassium 3.9 mmol/L (3.5-5.1) 01/14/23 06:10 Chloride 109 mmol/L (98-107) H 01/14/23 06:10 Magnesium 2.4 mg/dL (1.8-2.4) 01/13/23 12:34 Electrolytes, C-Reactive P, ESR: Reviewed DM Control DM Control: N/A (no diabetes diagnosis) Cardiac Review Cardiac Review: Troponin I < 50 ng/L (<or=60) 01/13/23 15:05 BP, HR, EF%: Reviewed QTc Review QTc: Reviewed (QTc = 417 01/13/23) List meds needing interventions: n/a IV to PO Switch IV Medications: Reviewed (continue IV abx for now (today = day 3) -- consider switching IV acetaminophen to PO. (per H&P pt cannot swallow pills, all meds need to be liquid or crushed)) Home Meds Home Med List reviewed: Reviewed Relevent Home Meds Not ordered & why?: tamsulosin on hold (blood pressure), other meds ordered Current Meds Current Medication Order Review: Reviewed Pharmacy Antibiotic Review Pharmacy Antibiotic Activity: 48 hour review, C/S review (blood, urine cultures no growth 24 hrs. hospitalist waiting for final result before dc'ing abx) and Reviewed, no change Comments: COVID, sepsis - on ceftriaxone + remdesivir (5 doses total 01/13 - 01/17) - dc ceftriaxone once cultures are final
--- NOTE | 2023-01-15 14:21 | W.NUTRFU ---
Date of service: 01/15/23 Time of Service: 14:21 Nutrition Note NOTE: pt is a 77yo male with sepsis due to current COVID infection. Chronic dementia noted. PT DNI/DNR status. Intake current inconsistent with <25%-100% taken during admission. BMI indicates stage 1 obesity with wt history relatively stable. No food allergies noted. Pt currently at low nutrition risk Will monitor pt for significant changes in wt, labs, intake and food preferences during the length of his stay and provide nutrition support as indicated Time Spent in Nutritional Counseling and Treatment: 0
--- NOTE | 2023-01-15 16:45 | PT.INNT ---
PT Notes Visit Reasons: Sepsis Patient remains not appropriate for PT at this time. Touched base with Dr. Mcginnis and JEAN CLAUDE Nuñez about discharging PT order and sending another referral should patient re-stabilizes cognitively. Nurse Deborah made aware of plan. ALEX Robin made aware as well.
[2023-01-15] MEDS: REMDESIVIR 100 MG in Normal Saline 250 ML 250 MG IVPB (17:19)
--- NOTE | 2023-01-15 17:42 | PDOC.CMPRO ---
Date of service: 01/15/23 Time of Service: 17:42 Care Management Progress Note Progress Note Text Progress Note Text: S/O:Chris remains on covid isolation. He is still confused and nearly non-verbal and not at his baseline, per . PT attempted to conduct an evaluation today and was unable to do so. Chris would not open his eyes and resisted any efforts at direction. He was unable to stand or participate in any meaningful way. Chris has had some low grade fevers and intermittent low blood pressure but is saturating in the low 90s on room air. A: Chris is a 77 year old man admitted on 01/13/23 with sepsis P:Chris will likely discharge home with a resumption of caregiver services, with the possible addition of HH nursing and/or PT. If he is unable annie return to his prior level of functioning he may need short term rehab prior to returning home. Chris will follow up with his PCP an plan of care and transport with his . CM will follow and assess for discharge planning concerns.
[2023-01-15] MEDS: Lactated Ringers 1,000 ML 250 ML IV (18:43)
[2023-01-16] VITALS (9 sets, daily range): BP systolic 94–115; BP diastolic 56–65; PULSE 58–73; RESP 18–20; TEMP 36.7–37.1; O2SAT 94–100
[2023-01-16] MEDS: Lactated Ringers 1,000 ML 250 ML IV (05:27)
[2023-01-16 05:43] LABS: Absolute Basophil Count 0.01 10^3/uL (0.0-0.2); Absolute Eosinophil Count 0.02 10^3/uL (0.0-0.7); Absolute Lymphocyte Count 1.31 10^3/uL (1.2-3.4); Absolute Monocyte Count 0.44 10^3/uL (0.1-0.8); Absolute Neutrophil Count 1.49 10^3/uL (1.2-6.7); Basophils % 0.3; Eosinophils % 0.6; HCT 32.9 % (40.0-50.0); HGB 11.1 g/dL (13.5-17.5); Lymphocytes % 40.1; MCH 32.7 pg (27.0-33.0); MCHC 33.7 % (32.0-36.0); MCV 97 fL (80-95); MPV 10.3 fL (8.0-11.0); Monocytes % 13.5; Neutrophils % 45.5; RBC 3.39 10^6/uL (4.36-5.78); RDW 12.9 % (11.8-14.1); RDW-SD 45.8 fL; WBC 3.27 10^3/uL (4.4-10.8)
[2023-01-16 05:50] LABS: Anion Gap 11.6 mmol/L (3-11); BUN 30 mg/dL (7-18); CO2 21.4 mmol/L (21.0-32.0); CREATININE 1.4 mg/dL (0.70-1.30); Calcium 8.3 mg/dL (8.5-10.1); Chloride 110 mmol/L (98-107); Estimated GFR 51.45 (mL/min/1.73m2); Glucose 99 mg/dL (74-106); Magnesium 1.6 mg/dL (1.8-2.4); Potassium 3.8 mmol/L (3.5-5.1); Sodium 143 mmol/L (136-145)
[2023-01-16 06:22] LABS: Platelet Count 95 10^3/uL (130-400)
[2023-01-16] MEDS: cefTRIAXone 2 GM/50 ML BAG IVPB (08:00)
[2023-01-16] MEDS: Normal Saline Flush 10 ML SYR IVP (08:20)
--- NOTE | 2023-01-16 09:03 | W.PM.PROGNOT ---
Date of Service Date of service: 01/16/23 Time of Service: 09:04 Assessment and Plan Assessment and plan (1) Encephalopathy due to 2019 novel coronavirus: Status: Acute Assessment and plan: Seems to improve, no neuro deficis, will continue remdesivir (2) Sepsis due to COVID-19: Status: Acute Assessment and plan: Resolution of Intial febrile and tachycardic state, with slight lactic acidosis, still mentally altered, lactate 1.1 VSS , IVF completed, considering boluses of LR 250 cc for hypotension and reduced u/o ceftriaxone on going , urine negative culture and awaiting 72 hours results on blood cultures , afebrile Patient remains on RA (3) COVID-19: Status: Acute Assessment and plan: Will continue remdesivir until 01/17 for 4 doses total ; no respiratory symptoms, no O2 requirement, saturation remains in the mid 90's on room air. continue to closely monitor Precautions maintained (4) Dementia: Status: Chronic Assessment and plan: patient still not as baseline as per spouse but progressing No acute delirium or agitation at this time; might progress to this state as the patient has dementia, is hopitalized and had a ongoing infection Maintain fall precautions, will consult with PT, not appropriate for PT at this time; considering new referral as getting close to baseline Palliative consult for goals of care and code status initiated on 01/14 and recommendations as per Dr. Watson's note: t risk for delirium: -priviledege much human - play music in his room that he enjoys. -Making sure that is properly donned so that she does not get COVID and can continue to visit him. Advance care planning/goals of care: See HPI for full discussion of list of goals. Discussion again conducted today with family Caregiver stress: Supportive counseling today. Reviewed other options including looking again at [facility] (he rejected 2 years ago). is beginning talks with the [place] perinatal social worker/manager rn case to look for additional supports or for help with fci facility placement. Encouraged her to take naps during the day when possible and to ask friends and family for help. Talked about eating healthy foods and making sure to spend time with others. (5) On deep vein thrombosis (DVT) prophylaxis: Status: Acute Assessment and plan: On LMWH on hold d/t hematuria and platelets 95 (6) Discharge planning issues: Status: Acute Assessment and plan: Might need rehabilitation : See palliative care notes and as per discussion with family and CM + palliative care today decisions are not definitive discussed with Dr. Mcginnis Subjective Subjective Interval history since last seen: The patient is looking better. The patient interacts more during the interview; still cannot answer questions, but look at the RN in the room for cues. The patient is still not following commands, but can hold his cup and drink. No complaints of pain, no nausea, vomiting, fever, hematemesis or hematochezia, Exam Narrative Exam Narrative: Constitutional The patient lying in bed comfortable but rigid, poor interraction re: dementia and additional condition,increased interractions today . The patient is well groomed without acute distress, on RA, skin is pink and well perfused HENMT: Head is ,facial structures with normal appearance Eyes: Well aligned, does not follow commands to move his eyes but can follow Neck: Normal ROM Neuro:alert and confused, No neurological focal deficit Chest:Chest is symmetrical and normal appearance Resp: Normal respiratory pattern, unlabored breathing, diminshed right base but clear otherwise Cardio: regular rhythm, S1, S2 distant , no murmur, capillary refill<3 sec., bilateral radial and dorsalis pedis pulses are positive GI: Abdomen is not distended, soft and non tender, bowel sounds are present : Negative Costovertebral angle tenderness, no bladder distension, ramírez in place with hematuria Back/spine/Pelvis: No back tenderness, normal alignment Integumentary:Stage II pressure ulcers to bilat. buttock near intergluteal fold, mepilex in place Extremities: strength 5/5 to bilateral upper extremities, 3 /5 lower ext. with the stiffness in in LE, this is dmight not be accurate Psych: RASS 0, congruent mood and flat affect. Objective Last Vital Signs Temp 37 C 01/16/23 00:28 Pulse 58 L 01/16/23 00:28 Resp 18 01/16/23 00:28 BP 115/56 L 01/16/23 00:28 Pulse Ox 100 01/16/23 00:28 Laboratory Results - last 24 hr 01/16/23 05:10 WBC 3.27 L RBC 3.39 L Hgb 11.1 L Hct 32.9 L MCV 97 H MCH 32.7 MCHC 33.7 RDW 12.9 Plt Count 95 L MPV 10.3 Immature Gran % 0.0 Neutrophils % 45.5 Lymphocytes % 40.1 Monocytes % 13.5 Eosinophils % 0.6 Basophils % 0.3 Nucleated RBC % 0.0 Absolute Neutrophils 1.49 Absolute Lymphocytes 1.31 Absolute Monocytes 0.44 Absolute Eosinophils 0.02 Absolute Basophils 0.01 Sodium 143 Potassium 3.8 Chloride 110 H Carbon Dioxide 21.4 Anion Gap 11.6 H BUN 30 H Creatinine 1.4 H Est GFR (CKD-EPI 2020) 51.45 Glucose 99 Calcium 8.3 L Magnesium 1.6 L Time Spent with Patient Time Spent with Patient: >50 minutes Time was spent: preparing to see the patient(eg.review tests), ordering medications,tests, procedures, referring, communicating with other health clinical care coordinator, indepentently interpreting results, counseling the patient and care coordination
--- NOTE | 2023-01-16 09:43 | PDOC.CMPRO ---
Date of service: 01/16/23 Time of Service: 09:43 Care Management Progress Note Progress Note Text Progress Note Text: S/O:Chris is much more alert and awake today. He ate 100% of his breakfast and 75% of his lunch. A family meeting was held with Dr. Watson, palliative physician, Savannah Matute APRN, Sue, CM, Jen, [id number] Nancy and son Osmin who was on speaker phone. Osmin asked to be updated about Chris's plan of care and expected course of recovery. Dr. Watson and Savannah both explained that with covid, the course can be difficult to predict. As Chris has advanced dementia at baseline, it is hard to determine when, or if, he will return to his pre-Covid baseline. He will remain in the hospital at least until Friday to complete his course of Remdesevir. Chris 's progress will continue to be assessed daily and discharge plans will evolve based on those assessments. The family was satisfied with the information and plan. A: Chris is a 77 year old man admitted on 01/13/23 with sepsis P:Chris will likely discharge home with a resumption of caregiver services, with the possible addition of HH nursing and/or PT. If he is unable annie return to his prior level of functioning he may need short term rehab prior to returning home. Chris will follow up with his PCP an plan of care and transport with his . CM will follow and assess for discharge planning concerns.
[2023-01-16] MEDS: Enoxaparin 40 MG/0.4 ML SYR SC (10:04)
[2023-01-16] MEDS: Aspirin 81 MG CHEW CH (10:04)
[2023-01-16] MEDS: Allopurinol 300 MG TAB PO (10:04)
[2023-01-16] MEDS: MAGNESIUM SULFATE 2 GM/50 ML BAG IVPB (10:27)
--- NOTE | 2023-01-16 12:07 | W.PALPGNOTE ---
Date of service: 01/16/23 Time of Service: 12:07 Assessment and Plan Assessment and plan (1) Palliative care encounter: Status: Acute Assessment and plan: Mr. Anthony is a 77-year-old gentleman with moderate to advanced Alzheimer's disease who was admitted with change in mental status and weakness 3 days ago and found to be COVID-positive. He now appears to be more awake. Has been eating well over the last 2 days. However staff has not been able to begin to mobilize him, beginning to show signs of skin breakdown, remains nonverbal and unable to follow simple directions. COVID infection/encephalopathy/weakness: Son has many questions about change in functional status. Feels he needs to now if there will be a permanent decline. We discussed uncertainty around return of functioning, time course of this due to COVID encephalopathy.unfortunately all we can do is follow clinical course. Would be helpful to engage patient in OT and PT. Recommend: -Removing Schneider catheter. (Discomfort may be contributing to his unwillingness to change position and participate in PT) -Retry physical therapy as soon as felt reasonable. -Continue treatment as per hospitalist. Discharge planning: -Family is hoping that he gains enough function (i.e. ambulatory and cooperative) to return back home for the holidays. -Family feels that they will be ready to submit choices for care application in the next few days. -If patient has very slow return to safe ambulation, he may need short subacute rehab stay for strengthening. Unfortunately, due to COVID infection, he would not be admitted to an accepting [facility] until at least 10 days after initial date of diagnosis. Case management was able to explain the challenges and logistics to family. Advance care planning/CODE STATUS: -Reviewed with , son Osmin and [id number] COLST orders as drawn up 2 days ago. Osmin is certain that his dad would not want CPR or intubation. -We began to explore if and at what stage of his disease the family thought patient would have wanted to transition to comfort measures only (i.e. no further return to hospital for evaluation and treatment). Thoughtful discussion. At this time, family would want him to be evaluated, transferred to the hospital, treated with antibiotics and IV hydration as indicated. They would want to avoid ICU admission, pressors if possible. Palliative care team will continue to follow patient and family. We will see him in a week if he is still in the hospital. Otherwise, follow-up with patient and family in 3 to 4 weeks wherever he is living at that time. Please call us sooner as needed. (2) Advanced care planning/counseling discussion: Status: Acute Assessment and plan: 16 to 30 minutes spent today on Advance Care Planning. Patient and family participated voluntarily. Advance care planning may include (not limited to) explanation and discussion of advance directives, choosing and appointing healthcare agents, alternatives to various ACP tools, discussion of (and if indicated, completion of) COLST form, discussion of patient's values and overall goals for treatment, palliative and disease directive care options, ways to avoid hospital readmission including hospice discussions, care preferences should the patient's several other adverse health events.See today's palliative care note for additional information. (3) Dementia: Status: Chronic (4) Frailty syndrome in geriatric patient: Status: Acute (5) Encephalopathy due to 2019 novel coronavirus: Status: Acute (6) Caregiver stress: Status: Acute Subjective Subjective Interval history since last seen: Mr. Anthony is a 77-year-old gentleman with mid-to-late stage Alzheimer's disease who was admitted several days ago with COVID infection causing increased confusion and weakness. describes significant decline in function over the last year with estimated FAST score 6B in the week prior to admission, walking extremely slowly, unable to dress self or engage in any chores or parts of chores, only speaking in single words. Palliative Care met with 2 days ago to discuss Goals of Care and advanced Care planning. I am meeting with pt and again today for followup. Upon arrival, turns out that family was hoping to have a family meeting. Family meeting today with , NELL, Sharda Mcclellan (ALEX), MAI Newman, Son Osmin participates via speakerphone: -Son's goal is to get him home , at least for the holidays, and then to continue to work on finding fpc placement. -Son is worried that he not get sent home to soon. Son and DIL feel that if he is not ambulatory , then could not care for him at home. -Son also paints a picture of lower functional state then the presented to me 2 days ago. He says that patient cannot really understand or follow verbal directions. Son feels that his status just prior to admission was the most that and family can manage at home, even with 20 hours a week of help that they are getting. If he needs any more assistance, they do not feel they can do this at home. Updates (information from hospitalist, case management, , [id number], son, ICU nurse, chart): -When PT has tried to work within the previous 2 days, he becomes rigid, so PT consult has been canceled for now. -Started eating yesterday. ICU nurse estimates he is taking in from 50 to 75% of meals. He is not choking or coughing when eating, but she would prefer that he receive a moist, minced diet. -Was able to be moved into chair today. But Hospitalist notes that he is developing early bed sores. -On Day 3 of anti-viral. -On Day 3 since COVID+ test. - reported that he waved to her through the window this morning. -Nursing staff notes no coughing or fever or need for supplemental oxygen. Care Team: Primary Care physician: [facility], recently changed (not yet assigned). 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 Additional services: He is receiving some home care services (6 hours 3 days a week) through a [place] funding source. Family is Working is on Choices for Care, as family thinks that that he needs to be in fci very soon. [place] is helping with application. Rocío MASS SPECTROSCOPIST comes to the house 3 days a week for 20 hours total. Helps with shower, feeds him , exercises, toilets him. No direct [place] services (i.e. no [place] palliative Care team or primary care at home team). Goals: Enjoys: listens to music, especially classic country and western Enjoys when son and grandson come to visit. ENjoys eating. Used to like to go out to restaurant or shopping, now walks too slow. Looks at pics in magazine. Still enjoys going out for walks, less so than previous. 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 Function: Ambulation: Prior to admission walked very slowly without aids. ADLs: Prior to admission: Needs help with bathing, dressing. Significant urinary incontinence, still continent of bowel. Up 3+ times a night. SHe has to get up with him and help him go to the bathroom. Feeds himself. iADLs: Recently unable to help at all with even simple pediatric orthodontist. Hearing:Hard of hearing, will not wear hearing aids. Vision: OK Cognition: Down to single words Falls: None Palliative Performance Scale % Ambulation Activity and Evidence of Disease Self Care Intake Level of Consciousness 100 Full Normal activity, no evidence of disease Full Normal Full 90 Full Normal activity, some evidence of disease Full Normal Full 80 Full Normal activity with effort, some evidence of disease Full Normal or reduced Full 70 Reduced Unable to do normal work, some evidence of disease Full Normal or reduced Full 60 Reduced Unable to do hobby or some housework, significant disease Occasional assist necessary Normal or reduced Full or confusion 50 Mainly sit/lie Unable to do any work, extensive disease Considerable assistance required Normal or reduced Full or confusion 40 Mainly in bed Unable to do any work, extensive disease Mainly assistance Normal or reduced Full, drowsy, or confusion 30 Totally bed bound Unable to do any work, extensive disease Total care Reduced Full, drowsy, or confusion 20 Totally bed bound Unable to do any work, extensive disease Total care Minimal sips Full, drowsy, or confusion 10 Totally bed bound Unable to do any work, extensive disease Total care Mouth care only Drowsy or coma 0 - - - - Patient Score: Currently 30 (50?60 prior to admission) Functional Assessment Scale (FAST) 1 No difficulty either subjectively or objectively 2 Complains of forgetting location of objects. Subjective work difficulties 3 Decreased job functioning evident to co-workers. Difficulty in traveling to new locations. Decreased organizational capacity* 4 Decreased ability to perform complex task, (e.g., planning dinner for guests, handling personal finances, such as forgetting to pay bills, etc) 5 Requires assistance in choosing proper clothing to wear for the day, season, or occasion, (e.g., pt may wear the same clothing repeatedly unless supervised*) 6 Occasionally or more frequently over the past weeks for the following*: A) Improperly putting on clothes without assistance or cueing B) Unable to bathe properly (not able to choose proper water temp) C) Inability to handle mechanics of toileting (e.g., forget to flush the toilet, does not wipe properly or properly dispose of toilet tissue) D) Urinary Incontinence E) Fecal Incontinence 7 A) Ability to speak limited to approximately < 6 intelligible different words in the course of an average day or in the course of an intensive interview. B) Speech ability is limited to the use of a single intelligible word in an average day or in the course of an intensive interview C) Ambulatory ability is lost (cannot walk without personal assistance) D) Cannot sit up without assistance (e.g., the individual will fall over if there are not lateral rests [arms] on the chair) E) Loss of ability to smile. F) Loss of ability to hold up head independently *Scored primarily on information obtained from a knowledgeable informant. Patient Score:6D (prior to admission) Spiritual history: Not important Palliative review of systems: Pain: Occasional gout. Not recently Dyspnea: SOme MORALES GI symptoms:COnstipation often, Metamucil PRN Appetite: WEight had been stable, good appetite. Depression:On SSRI Anxiety: None Emotional Distress: Spiritual/Existential Distress: Advanced Care Planning: Advanced Directive: C 2020 [place] advanced directive: See attached document Health Care Agent: 2020 [place] advanced directive: Jen and Raj, spouse; alternate is Osmin Rower son COLST: See COLST 01/14/23: DNR/DNI, transfer treat, use abx and IV fluids. Limitations: Exam Narrative Exam Narrative: Patient is sitting with head of bed elevated. Avidly eating soft foods that ICU nurse is feeding to him. Chews briefly and then swallows without any difficulty or choking or coughing. Eyes follow me. He occasionally smiles. Will not shake his head yes or no. I put at my hand for him to shake (with a glove on) he does not respond. I did not picker and packer his hand and shake it. I then offer him my hand again and he grabs it and shakes it. Unclear whether he recognizes his . Seems content in no distress relaxed facies. Color is good, no supplemental oxygen. No respiratory distress. Schneider catheter is in place draining brownish-reddish concentrated urine Objective Last Vital Signs Temp 37 C 01/16/23 00:28 Pulse 71 01/16/23 10:41 Resp 18 01/16/23 00:28 BP 95/63 L 01/16/23 10:41 Pulse Ox 94 01/16/23 10:41 Laboratory Results - last 24 hr 01/16/23 05:10 WBC 3.27 L RBC 3.39 L Hgb 11.1 L Hct 32.9 L MCV 97 H MCH 32.7 MCHC 33.7 RDW 12.9 Plt Count 95 L MPV 10.3 Immature Gran % 0.0 Neutrophils % 45.5 Lymphocytes % 40.1 Monocytes % 13.5 Eosinophils % 0.6 Basophils % 0.3 Nucleated RBC % 0.0 Absolute Neutrophils 1.49 Absolute Lymphocytes 1.31 Absolute Monocytes 0.44 Absolute Eosinophils 0.02 Absolute Basophils 0.01 Sodium 143 Potassium 3.8 Chloride 110 H Carbon Dioxide 21.4 Anion Gap 11.6 H BUN 30 H Creatinine 1.4 H Est GFR (CKD-EPI 2020) 51.45 Glucose 99 Calcium 8.3 L Magnesium 1.6 L
[2023-01-16] MEDS: REMDESIVIR 100 MG in Normal Saline 250 ML 250 MG IVPB (18:20)
[2023-01-17 02:59] VITALS: BP 121/71; PULSE 53; RESP 16; TEMP 36.8; O2SAT 93
[2023-01-17 06:38] LABS: Abs Immature Grans 0.01 10^3/uL (0.0-0.06); Absolute Eosinophil Count 0.03 10^3/uL (0.0-0.7); Absolute Lymphocyte Count 1.01 10^3/uL (1.2-3.4); Absolute Monocyte Count 0.51 10^3/uL (0.1-0.8); Absolute Neutrophil Count 2.42 10^3/uL (1.2-6.7); Eosinophils % 0.8; HCT 30.5 % (40.0-50.0); HGB 10.3 g/dL (13.5-17.5); Immature Grans % 0.3; Lymphocytes % 25.4; MCH 32.7 pg (27.0-33.0); MCHC 33.8 % (32.0-36.0); MCV 97 fL (80-95); MPV 10.2 fL (8.0-11.0); Monocytes % 12.8; Neutrophils % 60.7; Platelet Count 102 10^3/uL (130-400); RBC 3.15 10^6/uL (4.36-5.78); RDW 12.7 % (11.8-14.1); WBC 3.98 10^3/uL (4.4-10.8)
[2023-01-17 06:56] LABS: Anion Gap 10.6 mmol/L (3-11); BUN 23 mg/dL (7-18); CO2 25.4 mmol/L (21.0-32.0); CREATININE 1.2 mg/dL (0.70-1.30); Calcium 8.3 mg/dL (8.5-10.1); Chloride 108 mmol/L (98-107); Glucose 106 mg/dL (74-106); Magnesium 1.9 mg/dL (1.8-2.4); Potassium 3.8 mmol/L (3.5-5.1); Sodium 144 mmol/L (136-145)
--- NOTE | 2023-01-17 08:31 | PGE_ITS ---
Date of Service Date of service: 01/17/23 Time of Service: 08:31 Assessment and Plan Assessment and plan (1) Encephalopathy due to 2019 novel coronavirus: Status: Acute Assessment and plan: Seems to improve, no neuro deficis, will continue remdesivir (2) Sepsis due to COVID-19: Status: Acute Assessment and plan: Resolution of Intial febrile and tachycardic state, with slight lactic acidosis, still mentally altered, lactate 1.1 Considering boluses of LR 250 cc for hypotension or reduced u/o Was on Ceftriaxone, urine negative culture and blood cultures negative over 72 hours, will stop Ceftriaxone Patient remains on RA febrile later this PM, reminder to give scheduled APAP (3) COVID-19: Status: Acute Assessment and plan: Will continue remdesivir until 01/17 HS for 4 doses total ; no respiratory symptoms, no O2 requirement, saturation remains in the mid 90's on room air. continue to closely monitor Precautions maintained (4) Dementia: Status: Chronic Assessment and plan: patient still not as baseline as per spouse but was progressing. Agitated this AM , most likely delirium as he was pulling on his lines. Olanzapine oral started, considering haloperidol as a second line if nor effective The patient has dementia, is hopitalized and had a ongoing infection Maintain fall precautions, will consult with PT when appropriate, could not perform on intial consult. Considering new referral as getting close to baseline and as per Pallitive care consult and family discussions Palliative consult for goals of care and code status initiated on 01/14 and recommendations as per Dr. Watson's note: t risk for delirium: -prioritize human contact - music in his room as per taste -Making sure that is properly donned so that she does not get COVID and can continue to visit him. Advance care planning/goals of care: See HPI for full discussion of list of goals. Discussion again conducted today with family Caregiver stress: Family want s him home if he becomes more independent ( see palliative note 01/16). Other options including looking again at [facility] (he [facility] 2 years ago). Discussion between and [facility] clinical social worker/geriatric case manager to look for additional supports or for help with [place] [facility]. (5) On deep vein thrombosis (DVT) prophylaxis: Status: Acute Assessment and plan: On LMWH no further hematuria and platelets 102, will keep monitoring (6) Discharge planning issues: Status: Acute Assessment and plan: Might need rehabilitation : See palliative care notes and as per discussion with family and CM + palliative care on 01/16 decisions are not definitive discussed with Dr. Mcginnis Subjective Subjective Interval history since last seen: The patient is in bed comfortable. No further agitation as per this AM when he seems to have been in acute delirium , pulling his line and catheter. Oral olenzapine given at the time. The patient is less interactive than earlier; does not open eyes but eating while fed with HOB > 45, not holding his cup and his ustensils as earlier; no nausea, vomiting, seldom cough w/o expectorations.Febrile X1 today in PM; opens his eyes with tactile stimulation, remains non-verbal as per first day of admission.. Exam Narrative Exam Narrative: Constitutional The patient lying in bed comfortable less rigid, calm The patient is well groomed without acute distress, on RA, skin is pink HENMT: Head is atraumatic ,facial structures with normal appearance Eyes: Well aligned, closed most of the time Neck: Normal ROM Neuro:alert and confused, No neurological focal deficit Chest:Chest is symmetrical and normal appearance Resp: Normal respiratory pattern, unlabored breathing, diminshed right base but clear otherwise Cardio: regular rhythm, S1, S2 distant , capillary refill<3 sec., bilateral radial and dorsalis pedis pulses are positive GI: Abdomen is not distended, soft and non tender, bowel sounds are present :no bladder distension, ramírez in place Integumentary:Stage II pressure ulcers to bilat. buttock near intergluteal fold, mepilex in place Extremities: strength difficult to evaluate, not following commands, generalized weakness Psych: RASS 0, congruent mood and flat affect. Objective Last Vital Signs Temp 36.8 C 01/17/23 02:59 Pulse 53 L 01/17/23 02:59 Resp 16 01/17/23 02:59 BP 121/71 01/17/23 02:59 Pulse Ox 93 01/17/23 02:59 Laboratory Results - last 24 hr 01/17/23 05:53 WBC 3.98 L RBC 3.15 L Hgb 10.3 L Hct 30.5 L MCV 97 H MCH 32.7 MCHC 33.8 RDW 12.7 Plt Count 102 L MPV 10.2 Immature Gran % 0.3 Neutrophils % 60.7 Lymphocytes % 25.4 Monocytes % 12.8 Eosinophils % 0.8 Basophils % 0.0 Nucleated RBC % 0.0 Absolute Neutrophils 2.42 Absolute Lymphocytes 1.01 L Absolute Monocytes 0.51 Absolute Eosinophils 0.03 Absolute Basophils 0.00 Sodium 144 Potassium 3.8 Chloride 108 H Carbon Dioxide 25.4 Anion Gap 10.6 BUN 23 H Creatinine 1.2 Est GFR (CKD-EPI 2020) 61.90 Glucose 106 Calcium 8.3 L Magnesium 1.9 Time Spent with Patient Time Spent with Patient: >50 minutes Time was spent: preparing to see the patient(eg.review tests), ordering medications,tests, procedures, referring, communicating with other health child caregiver, indepentently interpreting results, counseling the patient and care coordination
[2023-01-17] MEDS: Normal Saline 500 ML 100 ML IV (08:40)
[2023-01-17] MEDS: Allopurinol 300 MG TAB PO (08:40)
[2023-01-17] MEDS: Aspirin 81 MG CHEW CH (08:40)
[2023-01-17] MEDS: cefTRIAXone 2 GM/50 ML BAG IVPB (08:41)
[2023-01-17] MEDS: Normal Saline Flush 10 ML SYR IVP (08:42)
--- NOTE | 2023-01-17 10:35 | PDOC.CMPRO ---
Date of service: 01/17/23 Time of Service: 10:35 Care Management Progress Note Progress Note Text Progress Note Text: S/O:Chris remains more confused than at baseline, however he is showing some improvement. He is more alert at times then becomes drowsy again. Chris is nonverbal and has not gotten out of bed. He has been eating when fed but is often resistant to care. His has been visiting and assists with meals and other care as able. A: Chris is a 77 year old man admitted on 01/13/23 with sepsis P:Chris will likely discharge home with a resumption of caregiver services, with the possible addition of HH nursing and/or PT. If he is unable annie return to his prior level of functioning he may need short term rehab prior to returning home. Chris will follow up with his PCP an plan of care and transport with his . CM will follow and assess for discharge planning concerns.
[2023-01-17] MEDS: OLANZapine 5 MG TAB PO (11:23)
[2023-01-17 16:04] VITALS: BP 90/50; PULSE 68; RESP 17; TEMP 38; O2SAT 95
[2023-01-17] MEDS: Lactated Ringers 250 ML IV (17:21)
[2023-01-17 18:25] VITALS: BP 99/57; PULSE 52
[2023-01-17 18:27] VITALS: BP 99/57; PULSE 52; RESP 18; TEMP 37.9; O2SAT 93
[2023-01-17] MEDS: REMDESIVIR 100 MG in Normal Saline 250 ML 250 MG IVPB (18:36)
[2023-01-17 21:00] VITALS: BP 102/65; PULSE 65; RESP 18; TEMP 37.3; O2SAT 95
[2023-01-18] VITALS (7 sets, daily range): BP systolic 102–159; BP diastolic 57–75; PULSE 60–75; RESP 16–18; TEMP 36.7–38; O2SAT 96–99
[2023-01-18 06:11] LABS: Abs Immature Grans 0.02 10^3/uL (0.0-0.06); Absolute Eosinophil Count 0.04 10^3/uL (0.0-0.7); Absolute Lymphocyte Count 1.08 10^3/uL (1.2-3.4); Absolute Monocyte Count 0.67 10^3/uL (0.1-0.8); Absolute Neutrophil Count 2.62 10^3/uL (1.2-6.7); Eosinophils % 0.9; HCT 29.1 % (40.0-50.0); HGB 9.5 g/dL (13.5-17.5); Immature Grans % 0.5; Lymphocytes % 24.4; MCH 31.9 pg (27.0-33.0); MCHC 32.6 % (32.0-36.0); MCV 98 fL (80-95); MPV 10.4 fL (8.0-11.0); Monocytes % 15.1; Neutrophils % 59.1; Platelet Count 111 10^3/uL (130-400); RBC 2.98 10^6/uL (4.36-5.78); RDW 12.7 % (11.8-14.1); RDW-SD 45.5 fL; WBC 4.43 10^3/uL (4.4-10.8)
[2023-01-18 06:26] LABS: Anion Gap 7.8 mmol/L (3-11); BUN 25 mg/dL (7-18); CO2 27.2 mmol/L (21.0-32.0); CREATININE 1.2 mg/dL (0.70-1.30); Calcium 8.1 mg/dL (8.5-10.1); Chloride 110 mmol/L (98-107); Glucose 106 mg/dL (74-106); Potassium 3.9 mmol/L (3.5-5.1); Sodium 145 mmol/L (136-145)
[2023-01-18] MEDS: OLANZapine 5 MG TAB PO (09:40)
[2023-01-18] MEDS: Aspirin 81 MG CHEW CH (09:40)
[2023-01-18] MEDS: Allopurinol 300 MG TAB PO (09:40)
[2023-01-18] MEDS: ACETAMINOPHEN 1,000 MG/100 ML BTL 400 MG IVPB (16:11)
--- NOTE | 2023-01-18 17:59 | W.PM.PROGNOT ---
Date of Service Date of service: 01/18/23 Time of Service: 18:00 Assessment and Plan Assessment and plan (1) Encephalopathy due to 2019 novel coronavirus: Status: Acute Assessment and plan: Seems to improve, no neuro deficits, remdesivir completed Zyprexa stopped as patient was at baseline grabbing items during care on 01/15, no acute delirium on 01/17 or 01/18 Delirium might occur d/t infection and baseline dementia (2) Sepsis due to COVID-19: Status: Acute Assessment and plan: Resolution of Intial febrile and tachycardic state, fever w/o tachycardia, stable BP today Consider boluses of LR 250 cc for hypotension or reduced u/o PRN Scheduled tylenol IV Ceftriaxone stopped 01/17 urine negative culture and blood cultures negative (3) COVID-19: Status: Acute Assessment and plan: Remdesivir completed no O2 requirement continue to monitor Precautions maintained until 01/22 -day 10 ( positive on 01/13) (4) Dementia: Status: Chronic Assessment and plan: patient still not as baseline as per spouse but was progressing. Agitated this AM , most likely delirium as he was pulling on his lines. Olanzapine oral started, considering haloperidol as a second line if nor effective The patient has dementia, is hopitalized and had a ongoing infection Maintain fall precautions, will consult with PT when appropriate, could not perform on intial consult. Considering new referral as getting close to baseline and as per Pallitive care consult and family discussions Palliative consult for goals of care and code status initiated on 01/14 and recommendations as per Dr. Watson's note: d/t risk for delirium: -prioritize human contact - music in his room as per [employer] music -proper donning for so she can continue to visit him. Advance care planning/goals of care: See HPI for full discussion of list of goals on 01/17 Caregiver stress: Family wants him home if he becomes more independent ( see palliative note 01/16). Other options including [facility] (he rejected 2 years ago). Discussion between and [place] social services designee/supervisor case loading re:additional supports VS [facility] facility placement. (5) On deep vein thrombosis (DVT) prophylaxis: Status: Acute Assessment and plan: On LMWH no further hematuria and platelets 102, will keep monitoring (6) Discharge planning issues: Status: Acute Assessment and plan: Might need rehabilitation : See palliative care notes and as per discussion with family and CM + palliative care on 01/16 decisions are not definitive discussed with Dr. Mcginnis Subjective Subjective Interval history since last seen: The patient is in bed with eye closed; opens eyes with deep tactile stimuli remains non-verbal, locates and remove stimuli with hands but unable to do the same with his foot or legs. Patient remains calm during the encounter. As reported by his nurse, patient only grabbed during care otherwise remained calm; does not have appear delirious at this time; no acute distress. The patient is a total's of feed and total care. Exam Narrative Exam Narrative: Constitutional The patient lying in bed comfortable less rigid, passive leg flexion possible The patient is well groomed without acute distress, on , HENMT: Head is atraumatic no lymphadenopathy, ,facial structures with normal appearance Eyes: Well aligned Neck: Normal ROM Neuro:alert and confused, non-verbal, No neurological focal deficit Chest:Chest is symmetrical and normal appearance Resp: Normal respiratory pattern, diminshed right base but clear otherwise Cardio: regular rhythm, S1, S2, capillary refill<3 sec.,positive radial and dorsalis pedis pulses GI: Abdomen is not distended, soft and non tender, bowel sounds are present :no bladder distension, ramírez in place no hematuria Integumentary:Mepilex in place to Stage II pressure ulcers to bilat. buttock Extremities: strength difficult to evaluate, not following commands, but LE weakness noticeable as he cannot withdraw his feet from stimuli Psych: RASS 0, flat affect. Objective Last Vital Signs Temp 38 C H 01/18/23 16:11 Pulse 66 01/18/23 15:59 Resp 18 01/18/23 15:59 BP 104/62 01/18/23 15:59 Pulse Ox 96 01/18/23 15:59 Laboratory Results - last 24 hr 01/18/23 05:35 WBC 4.43 RBC 2.98 L Hgb 9.5 L Hct 29.1 L MCV 98 H MCH 31.9 MCHC 32.6 RDW 12.7 Plt Count 111 L MPV 10.4 Immature Gran % 0.5 Neutrophils % 59.1 Lymphocytes % 24.4 Monocytes % 15.1 Eosinophils % 0.9 Basophils % 0.0 Nucleated RBC % 0.0 Absolute Neutrophils 2.62 Absolute Lymphocytes 1.08 L Absolute Monocytes 0.67 Absolute Eosinophils 0.04 Absolute Basophils 0.00 Sodium 145 Potassium 3.9 Chloride 110 H Carbon Dioxide 27.2 Anion Gap 7.8 BUN 25 H Creatinine 1.2 Est GFR (CKD-EPI 2020) 61.90 Glucose 106 Calcium 8.1 L Time Spent with Patient Time Spent with Patient: >50 minutes Time was spent: preparing to see the patient(eg.review tests), ordering medications,tests, procedures, referring, communicating with other health health care recruiter, indepentently interpreting results, counseling the patient and care coordination
[2023-01-19 06:21] LABS: Abs Immature Grans 0.02 10^3/uL (0.0-0.06); Absolute Basophil Count 0.01 10^3/uL (0.0-0.2); Absolute Eosinophil Count 0.08 10^3/uL (0.0-0.7); Absolute Lymphocyte Count 0.84 10^3/uL (1.2-3.4); Absolute Monocyte Count 0.84 10^3/uL (0.1-0.8); Basophils % 0.2; Eosinophils % 1.5; HCT 29.1 % (40.0-50.0); HGB 9.9 g/dL (13.5-17.5); Immature Grans % 0.4; Lymphocytes % 15.6; MCH 33.3 pg (27.0-33.0); MCV 98 fL (80-95); MPV 10.5 fL (8.0-11.0); Monocytes % 15.6; Neutrophils % 66.7; Platelet Count 137 10^3/uL (130-400); RBC 2.97 10^6/uL (4.36-5.78); RDW 12.7 % (11.8-14.1); RDW-SD 45.1 fL; WBC 5.39 10^3/uL (4.4-10.8)
[2023-01-19 06:34] LABS: Anion Gap 8.6 mmol/L (3-11); BUN 26 mg/dL (7-18); CO2 27.4 mmol/L (21.0-32.0); CREATININE 1.2 mg/dL (0.70-1.30); Calcium 8.6 mg/dL (8.5-10.1); Chloride 110 mmol/L (98-107); Glucose 112 mg/dL (74-106); Magnesium 2.2 mg/dL (1.8-2.4); Potassium 3.9 mmol/L (3.5-5.1); Sodium 146 mmol/L (136-145)
[2023-01-19 07:50] VITALS: BP 110/66; PULSE 65; RESP 19; TEMP 37.2; O2SAT 93
--- NOTE | 2023-01-19 08:56 | IN_ITS ---
PT Notes Visit Reasons: Sepsis Inpatient Physical Therapy Evaluation Date: March 22, 2022 Referring Doctor: Savannah Matute PT Orders: PT CONSULT: Nonurgent Precautions: Standard, fall Patient Profile/Admitting Diagnosis: Mr. Anthony is a 77-year-old gentleman with moderate to advanced Alzheimer's disease who was admitted with change in mental status and weakness 6 days ago and found to be COVID-positive. PT evaluations have been ordered however due to patient's mental status they were unable to complete evaluation. He is not at baseline yet. There has been a history of general decline in the last year. Staff has not been able to begin to mobilize him, beginning to show signs of skin breakdown, remains nonverbal and unable to follow simple directions. PMHX: PFSH All Active Problems (Updated 01/13/23 @ 18:32 by SIDDHARTH MARTE) Sepsis due to COVID-19 (Acute) Encephalopathy due to 2019 novel coronavirus (Acute) Acute on chronic alteration in mental status (Acute) Fever (Acute) COVID-19 (Acute) Knee pain, right (Acute) Abdominal wall lump (Acute) Occlusion and stenosis of unspecified carotid artery (Acute) Short-term memory loss (Acute) Hypokalemia (Acute) Normocytic anemia (Acute) BPH (benign prostatic hyperplasia) (Chronic) GERD (gastroesophageal reflux disease) (Chronic) Dementia (Chronic) CAD (coronary artery disease) (Chronic) Gout (Chronic) Medical History History of hematuria Per [place] notes, negative cystoscopy August 2018Abdominal aortic aneurysm Per [facility] records unchanged on CT/MRI 09/2018, 3.5 cm)Sensorineural hearing loss Essential hypertension Carotid artery stenosis Surgical History History of ventral hernia repair Stented coronary artery Social History/Home Situation: Lives home with with caregiver services and home health PT Current Functional Limitations: [] Equipment Owned/DME: [] Subjective: Patient is non-verbal. Objective: [] General Observation: [] Mental Status: [] Pain: [] Vital Signs: [] ROM: Right Upper Extremity: [] Left Upper Extremity: [] Right Lower Extremity: [] Left Lower Extremity: [] Strength: Right Upper Extremity: [] Left Upper Extremity: [] Right Lower Extremity: [] Left Lower Extremity: [] Sensation: [] Bed Mobility/Transfers: [] Gait: [] Balance: [] Static Sitting: [] Dynamic Sitting: [] Static Standing: [] Dynamic Standing: [] Special Tests: Mobility Limitations Standardized Measure [facility] 6 clicks Basic Mobility Inpatient Short Form: Raw Score: [] Standardized Score: [] CMS Score: [] Informed Consent/Education: Patient instructed in purpose of PT consult and plan of care. Assessment: Patient is a [] year old [] referred to physical therapy services with the diagnosis of []. Patient presents with clinical signs and symptoms consistent with [], as demonstrated by the following impairment level findings: []. Impairments are contributing to the following functional limitations: AMPAC score. Patient is assessed as a [] Low 00485 [] Moderate 38355 [] High 73567 complexity based on the following: History: [] Examination: [] Presentation: [] Decision Making: [] Goals: Goals X1 week 1. Supine-Sit [] 2. Sit-Supine [] 3. Sit-Stand [] 4. Stand-Sit [] 5. Bed-Chair [] 6. Chair-Bed [] 7. Gait [] 8. Stairs [] 9. Independent with home exercise program [] 10. Balance [] Plan of Care/Treatment Plan: 1-2x/day, 7 days/week x 1 week. Plan of care has been reviewed with the NOC TECHNICIAN providing the service under Physical Therapy direction. Initiate Physical Therapy intervention for strengthening, bed mobility, transfers, gait, stairs, balance training, use of assistive device. DISCHARGE RECOMMENDATIONS: [] [] Home with no services [] [] Home with services [specify] [] Home with outpatient PT [] [] SNF for continued rehabilitation [] [] [facility] Care [] [] SNF versus LTC based on ability to participate and progress [] TREATMENT CODE/TIME: []
--- NOTE | 2023-01-19 09:38 | PT.INNT ---
PT Notes Visit Reasons: Sepsis Orders received on this date for PT consult evaluation. Attempted to perform PT initial evaluation on this patient who is nonverbal and has advanced dementia. Patient was unable to follow any verbal commands or requests. He was sitting in bed head of bed 45 degrees with food in front of him. Attempted to feed the patient some cereal and scrambled eggs but he did not engage. He typically has assistance at home for feeding. Sounds as though there is caregivers in place prior to admission to hospital. Unable to complete/perform any PT initial evaluation. Nursing (Zahra) was notified of the situation. There is concerned that he is starting to develop some pressure ulcers due to lack of mobility. We will attempt to evaluation tomorrow if appropriate. Time spent with patient [phone] no charge.
--- NOTE | 2023-01-19 15:18 | W.PM.PROGNOT ---
Date of Service Date of service: 01/19/23 Time of Service: 15:18 Assessment and Plan Assessment and plan (1) Encephalopathy due to 2019 novel coronavirus: Status: Acute Assessment and plan: Seems to improve, ? new baseline remdesivir completed Zyprexa stopped as patient was at baseline grabbing items during care on 01/15, no acute delirium on 01/17 or 01/18 Delirium might occur d/t infection and baseline dementia (2) Sepsis due to COVID-19: Status: Resolved Assessment and plan: Resolution of Intial febrile and tachycardic state, fever w/o tachycardia, stable BP Consider boluses of LR 250 cc for hypotension or reduced u/o PRN Scheduled tylenol IV Ceftriaxone stopped 01/17 urine negative culture and blood cultures negative (3) COVID-19: Status: Acute Assessment and plan: Remdesivir completed no O2 requirement continue to monitor Precautions maintained until 01/22 -day 10 ( positive on 01/13) (4) Dementia: Status: Chronic Assessment and plan: possibly new baseline continue safety precautions Palliative consult for goals of care and code status initiated on 01/14 and recommendations as per Dr. Watson's note: d/t risk for delirium: -prioritize human contact - music in his room as per [employer] music -proper donning for so she can continue to visit him. Advance care planning/goals of care: See HPI for full discussion of list of goals on 01/17 Caregiver stress: Family wants him home if he becomes more independent ( see palliative note 01/16). Other options including [facility] (he rejected 2 years ago). Discussion between and [place] psychiatric social worker/cyanide case hardener re:additional supports VS assisted facility placement. (5) On deep vein thrombosis (DVT) prophylaxis: Status: Acute Assessment and plan: On LMWH no further hematuria and platelets 102, will keep monitoring (6) Discharge planning issues: Status: Acute Assessment and plan: Might need rehabilitation but question ability to participate d/t dementia, is now medically stable. : See palliative care notes and as per discussion with family and CM + palliative care on 01/16 decisions are not definitive. discussed with Dr. Wright Subjective Subjective Patient reports: no new complaints Interval history since last seen: remains confused, unable to redirect. no behavioral issues Exam Const Nutritional Appearance: overweight Limitations: altered mental status HENTX Head: normal to inspection, normocephalic and atraumatic General nose exam: external nose normal Face and sinus: normal facial exam Mouth: oral mucosae normal Neck Neck: no JVD Chest Chest: normal inspection of the chest Resp Effort & Inspection: normal respiratory effort Auscultation: no wheezes Cardio Rate: regular rate Rhythm: regular rhythm GI Inspection: normal to inspection and obesity Palpation: soft Skin General skin exam: no rashes or lesions noted Extrem General: normal to inspection Objective Last Vital Signs Temp 37.2 C 01/19/23 07:50 Pulse 65 01/19/23 07:50 Resp 19 01/19/23 07:50 BP 110/66 01/19/23 07:50 Pulse Ox 93 01/19/23 07:50 Laboratory Results - last 24 hr 01/19/23 05:58 WBC 5.39 RBC 2.97 L Hgb 9.9 L Hct 29.1 L MCV 98 H MCH 33.3 H MCHC 34.0 RDW 12.7 Plt Count 137 MPV 10.5 Immature Gran % 0.4 Neutrophils % 66.7 Lymphocytes % 15.6 Monocytes % 15.6 Eosinophils % 1.5 Basophils % 0.2 Nucleated RBC % 0.0 Absolute Neutrophils 3.60 Absolute Lymphocytes 0.84 L Absolute Monocytes 0.84 H Absolute Eosinophils 0.08 Absolute Basophils 0.01 Sodium 146 H Potassium 3.9 Chloride 110 H Carbon Dioxide 27.4 Anion Gap 8.6 BUN 26 H Creatinine 1.2 Est GFR (CKD-EPI 2020) 61.90 Glucose 112 H Calcium 8.6 Magnesium 2.2 Time Spent with Patient Time Spent with Patient: 35-49 minutes Time was spent: preparing to see the patient(eg.review tests), ordering medications,tests, procedures, referring, communicating with other health career placement specialist, indepentently interpreting results and care coordination
[2023-01-19 15:45] VITALS: BP 105/59; PULSE 71; RESP 18; TEMP 37.3; O2SAT 93
[2023-01-19 23:25] VITALS: BP 99/63; PULSE 77; RESP 19; TEMP 37.6; O2SAT 92
[2023-01-20 08:12] VITALS: BP 112/68; PULSE 73; RESP 18; TEMP 37; O2SAT 92
[2023-01-20] MEDS: Allopurinol 300 MG TAB PO (08:55)
[2023-01-20] MEDS: Aspirin 81 MG CHEW CH (08:55)
--- NOTE | 2023-01-20 09:49 | PGE_ITS ---
Date of Service Date of service: 01/20/23 Time of Service: 09:49 Assessment and Plan Assessment and plan (1) Encephalopathy due to 2019 novel coronavirus: Status: Acute Assessment and plan: ? new baseline remdesivir completed (2) Sepsis due to COVID-19: Status: Resolved Assessment and plan: Resolution of Initial febrile and tachycardic state, stable BP Ceftriaxone stopped 01/17 urine negative culture and blood cultures negative (3) COVID-19: Status: Acute Assessment and plan: Remdesivir completed no O2 requirement continue to monitor Precautions maintained until 01/22 -day 10 ( positive on 01/13) (4) Dementia: Status: Chronic Assessment and plan: possibly new baseline continue safety precautions Palliative consult for goals of care and code status initiated on 01/14 and recommendations as per Dr. Watson's note: d/t risk for delirium: -prioritize human contact - music in his room as per [employer] music -proper donning for so she can continue to visit him. Advance care planning/goals of care: See HPI for full discussion of list of goals on 01/17 Caregiver stress: Family wants him home if he becomes more independent ( see palliative note 01/16). Other options including [facility] (he rejected 2 years ago). Discussion between and [place] health social work professor/case finishing machine adjuster re:additional supports VS [facility] facility placement. (5) On deep vein thrombosis (DVT) prophylaxis: Status: Acute Assessment and plan: On LMWH no further hematuria and platelets 102, will keep monitoring (6) Discharge planning issues: Status: Acute Assessment and plan: will be unable to care for patient at home at this point but question ability to participate in rehab d/t severe advanced dementia, is now medically stable. See palliative care notes referrals sent and rehab attempts will be continued for now discussed with DR Wright Subjective Subjective Patient reports: no new complaints and afebrile; denies shortness of breath Interval history since last seen: patient remains demented and not following commands but with no behavioral issues. Exam Const Nutritional Appearance: overweight Limitations: altered mental status HENUT Head: normal to inspection, normocephalic and atraumatic General nose exam: external nose normal Face and sinus: normal facial exam Mouth: oral mucosae normal Neck Neck: no JVD Chest Chest: normal inspection of the chest Resp Effort & Inspection: normal respiratory effort Auscultation: no wheezes Cardio Rate: regular rate Rhythm: regular rhythm GI Inspection: normal to inspection and obesity Palpation: soft Skin General skin exam: no rashes or lesions noted Extrem General: normal to inspection Objective Last Vital Signs Temp 37.0 C 01/20/23 08:12 Pulse 73 01/20/23 08:12 Resp 18 01/20/23 08:12 BP 112/68 01/20/23 08:12 Pulse Ox 92 01/20/23 08:12 Time Spent with Patient Time Spent with Patient: 25-34 minutes Time was spent: preparing to see the patient(eg.review tests), indepentently interpreting results and care coordination
--- NOTE | 2023-01-20 11:55 | CMPROGNOTE_ITS ---
Date of service: 01/20/23 Time of Service: 11:55 Care Management Progress Note Progress Note Text Progress Note Text: S/O:Chris remains on Covid precautions so CM did not see him in person. CM did speak to Jen, his , about Chris's failure to progress. He is still non- ambulatory, non-verbal and eating very little. CM requested that another meeting be held to discuss next steps. They were unavailable today but a meeting was scheduled for tomorrow morning at 10:30 am. It would be ideal if palliative care could be present but that may not be possible. The purpose of the meeting will be to discuss which facilities they would like referrals sent to unless they choose to move in a different direction with different goals of care. A: Chris is a 77 year old man admitted on 01/13/23 with sepsis P:Chris will likely need short term rehab prior to returning home. He has not progressed and is not able to return home at this time, however he is medically cleared. A family meeting is scheduled for tomorrow to discuss options for placement. CM will follow and continue to assess for discharge planning concerns.
[2023-01-20 15:14] VITALS: BP 118/64; PULSE 71; RESP 18; TEMP 37.3; O2SAT 94
--- NOTE | 2023-01-20 16:20 | PT.INNT ---
PT Notes Visit Reasons: Sepsis Per report from Nurse Kelsey, there has been no change in patient's cognition and ability to follow instructions. On the Global Deterioration Scale, patient scores under Level 7 (the last stage), cannot be trained nor be engaged in meaningful therapy at this time, and is therefore not appropriate for PT. Level 7 of the Global Deterioration Scale (by Cornelius Gutiérrez MD) Very severe cognitive decline (Severe Dementia) All verbal abilities are lost over the course of this stage. Frequently there is no speech at all -only unintelligible utterances and rare emergence of seemingly forgotten words and phrases. Incontinent of urine, requires assistance toileting and feeding. Basic psychomotor skills, e.g., ability to walk, are lost with the progression of this stage. The brain appears to no longer be able to tell the body what to do. Generalized rigidity and developmental neurologic reflexes are frequently present.
[2023-01-20] MEDS: Normal Saline Flush 10 ML SYR IVP ×2 (20:46→22:58)
[2023-01-20 20:57] VITALS: PULSE 70; RESP 16; O2SAT 96
[2023-01-20 22:55] VITALS: BP 113/67; PULSE 69; RESP 16; TEMP 37.7; O2SAT 94
[2023-01-20 22:56] VITALS: TEMP 37.7
[2023-01-20] MEDS: ACETAMINOPHEN 1,000 MG/100 ML BTL 400 MG IVPB (22:56)
[2023-01-21] MEDS: Allopurinol 300 MG TAB PO (09:25)
[2023-01-21] MEDS: Aspirin 81 MG CHEW CH (09:25)
[2023-01-21 09:49] VITALS: BP 130/72; PULSE 64; RESP 16; TEMP 37.4; O2SAT 100
--- NOTE | 2023-01-21 14:32 | CMPROGNOTE_ITS ---
Date of service: 01/21/23 Time of Service: 14:33 Care Management Progress Note Progress Note Text Progress Note Text: S/O: Chris remains on covid precautions, therefore CM did not meet with him in person. CM met with his , Jen; his son, Osmin (via phone); and his daughter in law. The discussion was primarily focused on short term rehab placement for Chris, including his insurance barriers, as [facility]. Jen stated that he has MCR; CM verified his MCR A & B. Jen, as his HCA, can choose to have MCR billed for this stay, which would provide him with a qualifying stay for short term rehab. Per PT, he has not been able to participate due to his dementia, therefore he may not qualify for a short term rehab stay. CM discussed palliative care and hospice, and will request that they meet with Chris and his family again. CM called Jen after the meeting to discuss his insurance; left a voicemail. CM also called the [facility] nurse practitioner, and left a message, to determine if there is additional help available for Chris and his family. CM will continue to follow. A: Chris is a 77 year old man admitted on 01/13/23 with sepsis P:Chris will likely need short term rehab prior to returning home. He has not progressed and is not able to return home at this time, however he is medically cleared. A family meeting is scheduled for tomorrow to discuss options for placement. CM will follow and continue to assess for discharge planning concerns.
[2023-01-21 15:45] VITALS: BP 113/71; PULSE 87; RESP 18; TEMP 37.2; O2SAT 95
[2023-01-21] MEDS: ACETAMINOPHEN 1,000 MG/100 ML BTL 400 MG IVPB (16:28)
[2023-01-21] MEDS: Normal Saline Flush 10 ML SYR IVP ×2 (16:29→21:45)
[2023-01-21] MEDS: Bisacodyl 10 MG SUPP (16:29)
--- NOTE | 2023-01-21 17:18 | PGE_ITS ---
Date of Service Date of service: 01/21/23 Time of Service: 15:00 Assessment and Plan Assessment and plan (1) Encephalopathy due to 2019 novel coronavirus: Status: Acute Assessment and plan: Seems to slowly improve,but patient might have met a new baseline remdesivir: 4 doses completed History of dementia w/o acute delirium (2) Sepsis due to COVID-19: Status: Resolved Assessment and plan: Afebrile, VSS Considering boluses of LR 250 cc for hypotension Ceftriaxone stopped 01/17 urine negative culture and blood cultures negative (3) Pain: Status: Acute Assessment and plan: Scheduled Tylenol IV for 24/hours for 24 hours, patient is not always taking oral but c/o pain to RN by pointing to his knees Will continue to monitor (4) COVID-19: Status: Acute Assessment and plan: Remdesivir completed no O2 requirement continue to monitor Precautions maintained until 01/22 -day 10 ( positive on 01/13) (5) Dementia: Status: Chronic Assessment and plan: patient still not as baseline, no delirium Maintain fall precautions, working with PT will f/u progress Considering new referral as getting close to baseline and as per Pallitive care consult and family discussions Palliative is following patient d/t risk for delirium: -human contact -play music in his room -proper donning for Advance care planning/goals of care: See HPI for full discussion of list of goals on 01/17 Home versus SNF Caregiver stress: Family wants him home if he becomes more independent ( see palliative note 01/16). Other options including [facility] (he rejected 2 years ago). Discussion between and [place] social service technician/field nurse case manager: Might not be covered by [place] for SNF as per CM discussion (6) On deep vein thrombosis (DVT) prophylaxis: Status: Acute Assessment and plan: On LMWH on hold, TEDs ordered (7) Ecchymosis: Status: Acute Assessment and plan: Different colors: yellow to purple might indicate different stages, bruising marked on right hip and left ribcage Turned Q2, avoid skye prominences Monitoring CBC, stable (8) Discharge planning issues: Status: Acute Assessment and plan: Might need rehabilitation : See palliative care notes and as per discussion with family and CM + palliative care on 01/16 decisions are not definitive Planning for family meeting discussed with Dr. Mcginnis Subjective Subjective Patient reports: no new complaints (increased interactions, , no acute distress, ), pain is less (as reported by nurse, patient pointing to knees), tolerating liquids well (minimal intake ), tolerating a regular diet (minimal intake ), voiding w/o difficulty, flatus, no bowel movement (PRN laxative ) and afebrile; denies diarrhea, nausea, vomiting or shortness of breath Exam Narrative Exam Narrative: Patient is in bed, cooperative when met, no acute distress, eyes are closed, the patient opens them with light tactile stimuli. Head is normocephalic atraumatic, no lymphadenopathy seen. There is no focal neurodeficit, grasp is equal and weak to bilateral upper extremities. When asked to legs, patient stated I can't, was nonverbal in previous interactions. Clear lungs bilaterally S1-S2 no murmur, positive pulses to all 4 extremities, capillary refill less than 3 seconds. Abdomen is round, large, soft and non-tender,.bowel sounds are present. Schneider catheter in place, draining clear urine yellow urine. No bladder distention noticed. Objective Last Vital Signs Temp 37.2 C 01/21/23 15:45 Pulse 87 01/21/23 15:45 Resp 18 01/21/23 15:45 BP 113/71 01/21/23 15:45 Pulse Ox 95 01/21/23 15:45 Time Spent with Patient Time Spent with Patient: >50 minutes Time was spent: preparing to see the patient(eg.review tests), ordering medications,tests, procedures, referring, communicating with other health healthcare administration internship, indepentently interpreting results, counseling the patient and care coordination
[2023-01-21 22:14] VITALS: BP 106/69; PULSE 69; RESP 20; TEMP 37.2; O2SAT 97
[2023-01-22] MEDS: ACETAMINOPHEN 1,000 MG/100 ML BTL 400 MG IVPB ×3 (00:36→16:38)
[2023-01-22] MEDS: Normal Saline Flush 10 ML SYR IVP ×2 (00:37→09:11)
[2023-01-22 05:53] VITALS: BP 138/70; PULSE 59; RESP 16; TEMP 36.8; O2SAT 99
[2023-01-22 08:16] LABS: Abs Immature Grans 0.05 10^3/uL (0.0-0.06); Absolute Basophil Count 0.01 10^3/uL (0.0-0.2); Absolute Eosinophil Count 0.23 10^3/uL (0.0-0.7); Absolute Lymphocyte Count 0.81 10^3/uL (1.2-3.4); Absolute Monocyte Count 0.85 10^3/uL (0.1-0.8); Absolute Neutrophil Count 4.26 10^3/uL (1.2-6.7); Basophils % 0.2; Eosinophils % 3.7; HCT 29.6 % (40.0-50.0); HGB 9.6 g/dL (13.5-17.5); Immature Grans % 0.8; MCH 31.8 pg (27.0-33.0); MCHC 32.4 % (32.0-36.0); MCV 98 fL (80-95); MPV 9.9 fL (8.0-11.0); Monocytes % 13.7; Neutrophils % 68.6; Platelet Count 257 10^3/uL (130-400); RBC 3.02 10^6/uL (4.36-5.78); RDW 12.6 % (11.8-14.1); RDW-SD 45.7 fL; WBC 6.21 10^3/uL (4.4-10.8)
[2023-01-22 09:00] LABS: Anion Gap 11.9 mmol/L (3-11); BUN 31 mg/dL (7-18); CO2 24.1 mmol/L (21.0-32.0); CREATININE 1.4 mg/dL (0.70-1.30); Calcium 9.1 mg/dL (8.5-10.1); Chloride 117 mmol/L (98-107); Estimated GFR 51.45 (mL/min/1.73m2); Folate > 20.0 ng/mL (8.6-20.0); Glucose 106 mg/dL (74-106); Magnesium 2.5 mg/dL (1.8-2.4); Potassium 3.6 mmol/L (3.5-5.1); Sodium 153 mmol/L (136-145); Vitamin B12 943 pg/mL (193-986)
--- NOTE | 2023-01-22 11:24 | PGE_ITS ---
Date of Service Date of service: 01/22/23 Time of Service: 11:32 Assessment and Plan Assessment and plan (1) Encephalopathy due to 2019 novel coronavirus: Status: Acute Assessment and plan: Seems to slowly improve,better eye contact and following command better remdesivir: 4 doses completed History of dementia w/o acute delirium (2) Sepsis due to COVID-19: Status: Resolved Assessment and plan: Afebrile, VSS BP stable resuming flomax to d/c ramírez on 01/23 Considering boluses of LR 250 cc for hypotension, Ceftriaxone stopped 01/17 as urine and cultures were negative (3) Pain: Status: Acute Assessment and plan: Scheduled Tylenol IV for 24/hours for 24 hours, seems to be effective, patient is not always taking oral Will continue to monitor (4) COVID-19: Status: Acute Assessment and plan: Remdesivir completed no O2 requirement continue to monitor Precautions maintained until 01/23 will be the 11th day( positive on 01/13) (5) Dementia: Status: Chronic Assessment and plan: patient still not as baseline, no delirium Maintain fall precautions, working with PT but not a candidate. Seen by Charlie Castro today: considering home with hospice as a first choice VS SB until offers for SNF. Pallitive care consult and family discussions Palliative is following patient d/t risk for delirium: -human contact -play music in his room -proper donning for Advance care planning/goals of care: See HPI for full discussion of list of goals on 01/17 Home with hospice versus SNF Caregiver stress: Family wants him home if he becomes more independent ( see palliative note 01/16). Other options including [facility] (he rejected 2 years ago). Discussion between and [place] social security specialist/case finisher: Might not be covered by [place] for SNF as per CM discussion (6) On deep vein thrombosis (DVT) prophylaxis: Status: Acute Assessment and plan: On LMWH on hold, TEDs ordered (7) Hypernatremia: Status: Acute Assessment and plan: No treatment at this time, not symptomatic, and patient will be discharge on hospice from discussion between Dr. Guerra and family (8) Ecchymosis: Status: Acute Assessment and plan: Remain stable today bruising marked on right hip and left ribcage as they were the major ones Turned Q2, avoid skye prominences Monitoring CBC, stable, no thrombocytopenia (9) Hospice care: Status: Acute Assessment and plan: palliative care consult by Dr. Rivas today patient will be evaluated and might meet hospice criteria Criteria met (10) Discharge planning issues: Status: Acute Assessment and plan: Might need rehabilitation : See palliative care notes and as per discussion with family and CM + palliative care on 01/16 decisions are not definitive Planning for family meeting discussed with Dr. Wright Subjective Subjective Interval history since last seen: Patient seen in bed this morning, made eye contact, held his cup and drank. Increase interactions today, patient stated no when food was offered for the second time. The patient ate without difficulty swallowing the ordered diet. The patient is not in acute distress , remains calm and cooperative. Exam Narrative Exam Narrative: Patient is alert and confused, mostly nonverbal, no focal neurodeficit noticed, weak bilateral vice president of consulting services with upper extremities. .no acute respiratory distress, lungs are clear except for decreased right lower lobe S1-S2 heard, no murmur, cap refill less than 3 seconds, no edema. Abdomen is large and soft, nontender, not distended. Ramírez catheter in place, no hematuria. Objective Last Vital Signs Temp 36.8 C 01/22/23 05:53 Pulse 59 L 01/22/23 05:53 Resp 16 01/22/23 05:53 BP 138/70 01/22/23 05:53 Pulse Ox 99 01/22/23 05:53 Laboratory Results - last 24 hr 01/22/23 01/22/23 05:35 07:45 WBC 6.21 RBC 3.02 L Hgb 9.6 L Hct 29.6 L MCV 98 H MCH 31.8 MCHC 32.4 RDW 12.6 Plt Count 257 MPV 9.9 Immature Gran % 0.8 Neutrophils % 68.6 Lymphocytes % 13.0 Monocytes % 13.7 Eosinophils % 3.7 Basophils % 0.2 Nucleated RBC % 0.0 Absolute Neutrophils 4.26 Absolute Lymphocytes 0.81 L Absolute Monocytes 0.85 H Absolute Eosinophils 0.23 Absolute Basophils 0.01 Sodium 153 H Potassium 3.6 Chloride 117 H Carbon Dioxide 24.1 Anion Gap 11.9 H BUN 31 H Creatinine 1.4 H Est GFR (CKD-EPI 2020) 51.45 Glucose 106 Calcium 9.1 Magnesium 2.5 H Vitamin B12 Cancelled 943 Folate > 20.0 H Time Spent with Patient Time Spent with Patient: >50 minutes Time was spent: preparing to see the patient(eg.review tests), ordering medications,tests, procedures, referring, communicating with other health gericare aide teacher, indepentently interpreting results, counseling the patient and care coordination
[2023-01-22 12:16] LABS: ALT 61 U/L (16-63); AST 75 U/L (15-37); Albumin 2.8 g/dL (3.4-5.0); Alkaline Phosphatase 76 U/L (46-116); Bilirubin, Direct 0.2 mg/dL (0.0-0.2); Total Protein 7.8 g/dL (6.4-8.2)
[2023-01-22] MEDS: Bisacodyl 10 MG SUPP PR (14:30)
[2023-01-22 14:34] VITALS: BP 132/89; PULSE 66; RESP 18; TEMP 36.4; O2SAT 95
--- NOTE | 2023-01-22 16:29 | PDOC.CMPRO ---
Date of service: 01/22/23 Time of Service: 16:29 Care Management Progress Note Progress Note Text Progress Note Text: S/O: Chris remains on covid precautions, therefore CM was unable to meet with him in person. Palliative care met with him, and reported that he does meet criteria for hospice at this time due to the progression of his dementia. ALEX and Dr. Guerra, Palliative, had a conference call with Jen (his ), and Nancy (his daughter in law) to discuss the option of taking Chris home with hospice support. Per MD, there is no expectation that he will be ambulatory, although he may do better in his familiar space, at home. Dr. Guerra discussed expectations for care as well as support from hospice. CM continues to work on placement. The DC reported that they will pay for room and board for Chris to go to a facility for hospice. CM discussed this with admissions at [facility], as the family would prefer that he is close. There are no beds available at [facility], but admissions is inquiring with other [facility] facilities, looking for a hospice bed. Once a bed becomes available, he will return to [facility]. The family will plan to have Chris return home on Hospice, likely on Friday, once DME is delivered, with a plan to continue to look for a hospice bed in a facility, hopefully locally, which the hospice manager will support them through. CM will continue to follow. A: Chris is a 77 year old man admitted on 01/13/23 with sepsis P:Chris will likely need short term rehab prior to returning home. He has not progressed and is not able to return home at this time, however he is medically cleared. A family meeting is scheduled for tomorrow to discuss options for placement. CM will follow and continue to assess for discharge planning concerns.
[2023-01-22] MEDS: Normal Saline Flush 10 ML SYR IV (21:10)
[2023-01-22 23:00] VITALS: BP 121/70; PULSE 66; RESP 18; TEMP 36.8; O2SAT 95
[2023-01-23] MEDS: ACETAMINOPHEN 1,000 MG/100 ML BTL 400 MG IVPB ×2 (00:30→07:46)
[2023-01-23 06:08] VITALS: BP 137/79; PULSE 76; RESP 18; TEMP 37; O2SAT 92
[2023-01-23] MEDS: Aspirin 81 MG CHEW CH (07:48)
[2023-01-23] MEDS: Tamsulosin 0.4 MG CAPCR PO (07:48)
[2023-01-23] MEDS: Normal Saline Flush 10 ML SYR IV ×2 (07:49→21:29)
[2023-01-23 08:16] VITALS: BP 132/77; PULSE 64; RESP 17; TEMP 36.6; O2SAT 96
--- NOTE | 2023-01-23 08:31 | PCNE_ITS ---
Date of service: 01/22/23 Time of Service: 11:00 History of Present Illness History of Present Illness Chief Complaint: advanced dementia, goals of care Narrative: I was asked by the hospitalist service to see Chris Anthony, who is a 77 yo man initially admitted on 01/13 with acute covid resulting in both sepsis and encephalopathy. He has an underlying severe dementia, but now after having had covid, his baseline has dipped even lower. He is bedbound. He is nonverbal. He is eating very little. He doesn't appear to be in pain, except when he is repositioned. He has significant bruising in his left axilla (appears most recent), sternum (received a sternal rub on 01/16), both legs laterally. He was on lovenox until 01/16. He has been receiving aspirin most days since then. Labs do not show an obvious cause for this easy bruising. He is a [facility] patient. 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 This is the maximum he can receive through the VA, according to care management, who spoke to the VA directly. His , Jen, is his primary caregiver. Their son, Osmin, and his , Nancy, who has worked as an ADMINISTRATIVE NURSING SUPERVISOR previously, help care for him as well. They like to make decisions together as a family. He was found to be somewhat hypernatremic on labs today. He is not eating or drinking much at all, certainly <10% of his meals. He does have a ramírez in place. He has a pressure ulcer on his sacrum, stage 2. Physical therapy signed off on his care today, as he is not able to participate in any PT exercises. He is too weak to stand. He cannot follow commands, per nursing and PT, though his hospitalist SECURITY ASSURANCE SPECIALIST, Savannah Matute, had some success cueing him to hold a cup and take a sip. Jen (), Nancy (d-i-l), Annette Tan from Care Management and I had a conference call after I discussed his care with nursing and hospitalist team. The family's goal is to focus on comfort measures and get him placed in a facility once a bed opens nearby. We discussed the option of hospice. His FAST score is 7c at best, which qualifies him for hospice. He can be admitted to a facility under his VA benefit only IF he is on hospice. Annette Tan has been working closely with the VA and local SNFs to see which will accept him under a VA contract. He was pleasant, cooperative, non verbal, easy to provide care for. Until a bed is found for him, he will return home on hospice. Referral will be sent. Consults Consult date: 01/22/23 Requesting physician: Manasa Wright Assessment and Plan Assessment and plan (1) Mixed Alzheimer's and vascular dementia: Status: Acute Assessment and plan: Chris clearly qualifies for hospice based on his dementia, which is a mixed late- onset AD without agitation and vascular dementia. His FAST score today was 7c at best. He did not speak a word during my visit. PT discharged him as he was unable to stand. Family is interested in receiving hospice services for Chris. They would like him to move into a VA-contracted SNF near by once a bed is available. [facility] is aware of his needs. Annette Tan from Care Management reached out to [facility] for any other near-by bed with a VA contract. Family feels they can take care of him with increased help from both VA and hospice for a few weeks, but not long-term, as his care needs are more than his can provide at home. Given the advanced stage of his AD, he would not benefit from meds for dementia. (2) Encounter for hospice care discussion: Status: Acute Assessment and plan: Family is open to hospice. Referral was sent. He will be discharged home with hospice services on Wednesday 01/24. Hospice locally will continue to work on placement for him. His VA benefit will cover room and board at a SNF, and hospice will cover medications and other routine hospice servicers. (3) Hypernatremia: Status: Acute Assessment and plan: Likely due to some mild dehydration, though he didn't look dry on exam. IVF cancelled once GOC clarified with family. (4) Ecchymosis: Status: Acute Assessment and plan: Stop aspirin indefinitely. No clear reason why he bruised so readily during this admission (was on lovenox at first). Hospice staff to be made aware. (5) Discharge planning issues: Status: Acute Assessment and plan: Plan now in place. Will maximize services through hospice (as much as possible, given that he already has 20 hrs from another service through [place]). When VA contracted bed opens up near-by, will move into facility under his hospice VA benefit. (6) Frailty syndrome in geriatric patient: Status: Acute Assessment and plan: Continues to be frail. Will not improve. (7) Advanced care planning/counseling discussion: Status: Acute Assessment and plan: See above. He is DNR, DNI, no IVF, ok to have abx for comfort. (8) Palliative care encounter: Status: Acute Assessment and plan: No need for further PC visits. Transitioning to hospice on discharge. (9) Encephalopathy due to 2019 novel coronavirus: Status: Acute Assessment and plan: Brought him to new lower functional level. CLearly hospice eligible at this time. (10) Caregiver stress: Status: Acute Assessment and plan: sounded exhausted on the phone. Will support her with increased services, combining VA and hospice care at home, until Chris can be placed. Review of Systems Narrative: see HPI for further details Unobtainable due to mental condition PFSH All Active Problems Encounter for hospice care discussion (Acute) Mixed Alzheimer's and vascular dementia (Acute) FAST 7c for his AD Hypernatremia (Acute) Hospice care (Acute) Ecchymosis (Acute) Pain (Acute) On deep vein thrombosis (DVT) prophylaxis (Acute) Discharge planning issues (Acute) Caregiver stress (Acute) Frailty syndrome in geriatric patient (Acute) Advanced care planning/counseling discussion (Acute) Palliative care encounter (Acute) Encephalopathy due to 2019 novel coronavirus (Acute) Acute on chronic alteration in mental status (Acute) Fever (Acute) COVID-19 (Acute) Knee pain, right (Acute) Abdominal wall lump (Acute) Occlusion and stenosis of unspecified carotid artery (Acute) Short-term memory loss (Acute) Hypokalemia (Acute) Normocytic anemia (Acute) BPH (benign prostatic hyperplasia) (Chronic) GERD (gastroesophageal reflux disease) (Chronic) Dementia (Chronic) CAD (coronary artery disease) (Chronic) Gout (Chronic) Medical History History of hematuria Per [facility] notes, negative cystoscopy August 2018 Abdominal aortic aneurysm Per [facility] records unchanged on CT/MRI 09/2018, 3.5 cm) Sensorineural hearing loss Essential hypertension Carotid artery stenosis Surgical History History of ventral hernia repair Stented coronary artery Family History (Updated 01/23/23 @ 08:57 by Ilana Guerra MD) Other Dementia Heart disease Hypertension Social History (Updated 01/23/23 @ 08:59 by Ilana Guerra MD) Smoking/Tobacco Use Status: Never Smoking risk assessment performed?: Yes Alcohol Intake: never Drug use: Never Substance use type: does not use Caregiver/Support person: Yes Household members: spouse Housing: house Communication Needs: Hard of Hearing Education Level: high school current occupation: retired Current gender identity: male What is your relationship status?: How often do you talk on the phone with friends or family?: never How often do you get together with friends or relatives?: three or more times per week Panel score (0-1 are the most socially isolated patients): 2 What type of physical activity do you participate in: none and bed-bound Agree to transfusion: No Working smoke detector in home: Yes Fire extinguisher in home: Yes Do you feel safe at home: Yes Do you feel safe in your relationship?: Yes Additional Social history: Lives with , Jen. Son Osmin and daughter in law Nancy help a lot. Decisions are made as a team but Jen has final say. They tend to agree on a plan without conflict. Exam Narrative Exam Narrative: Patient is alert, confused, nonverbal, but does have good eye contact. Makes some facial expressions. VS reviewed Eyes anicteric HEENT mmm, hearing grossly intact Neck no lad or jvd Lungs ctab, no increased wob cv regular, no murmur noted ext no cyanosis or edema, wearing teds on both feet neuro cannot follow commands, weak bilateral UE student recruiter abd soft, + bs wnl, no masses noted gu ramírez in place draining clear nonbloody urine--he is not pulling on it skin multiple bruises, most nearly healed, one new deep purple in left axilla psych no evidence of agiation Results Last Vital Signs Temp 97.9 F 01/23/23 08:16 Pulse 64 01/23/23 08:16 Resp 17 01/23/23 08:16 BP 132/77 01/23/23 08:16 Pulse Ox 96 12/07/23 08:16 Labs 01/22/23 07:45 01/22/23 07:45 Labs: Laboratory Results - last 24 hr 01/22/23 01/22/23 07:45 17:00 Sodium 153 H Cancelled Potassium 3.6 Cancelled Chloride 117 H Cancelled Carbon Dioxide 24.1 Cancelled Anion Gap 11.9 H Cancelled BUN 31 H Cancelled Creatinine 1.4 H Cancelled Est GFR (CKD-EPI 2020) 51.45 Cancelled Glucose 106 Cancelled Calcium 9.1 Cancelled Magnesium 2.5 H Total Bilirubin 1.0 Conjugated Bilirubin 0.2 AST 75 H ALT 61 Alkaline Phosphatase 76 Total Protein 7.8 Albumin 2.8 L Vitamin B12 943 Folate > 20.0 H
--- NOTE | 2023-01-23 11:48 | PGE_ITS ---
Date of Service Date of service: 01/23/23 Time of Service: 11:48 Assessment and Plan Assessment and plan (1) Encephalopathy due to 2019 novel coronavirus: Status: Acute Assessment and plan: Have slightly improved from admission on 01/13 but seems to have reached a new lower basline remdesivir: 4 doses completed History of dementia, no acute delirium, pleasant (2) Sepsis due to COVID-19: Status: Resolved Assessment and plan: Resolved no further precaution needed Vital signs remain stable Resumed flomax on 01/22, consider discontinuation of ramírez on 01/24 No further antibitics since 01/17; urine and cultures were negative (3) Pain: Status: Acute Assessment and plan: Scheduled Tylenol IV seemed to be effective for pain control, but will compl ete an oral trial for possble d/c on friday, patient might not always take oral medicine Will continue to monitor (4) COVID-19: Status: Acute Assessment and plan: Resolved No precaution as of 01/22 Remdesivir completed (5) Dementia: Status: Chronic Assessment and plan: patient still not as baseline, new baseline to be considered , no delirium Maintain fall precautions,Failed PT multiple times, was ambulatory prior to this COVID-19 infection; unable to follow command and mobilize legs. Seen by Charlie Castro today: considering home with hospice as a first choice and the patient will go home w hospice on friday short term. [facility] Palliative care no need for further follow-up (6) On deep vein thrombosis (DVT) prophylaxis: Status: Acute Assessment and plan: On LMWH on hold, TEDs ordered (7) Hypernatremia: Status: Acute Assessment and plan: No treatment at this time, not symptomatic, and patient will be discharge on hos pice from discussion between Dr. Guerra and family Encourage oral fluid, needs cue to hold his cup, appears thirsty (8) Ecchymosis: Status: Acute Assessment and plan: Stable and fading bruising marked on right hip and left ribcage as they were the major ones Turned Q2, avoid skye prominences Monitoring CBC PRN (9) Hospice care: Status: Acute Assessment and plan: Dr. Rivas consulted on 01/22 patient evaluated and met hospice criteria (10) Discharge planning issues: Status: Acute Assessment and plan: D/c planned for 12/08 home on hospice Intermediate plan:S[facility] discussed with Dr. Wright Subjective Subjective Patient reports: no new complaints, tolerating liquids well, tolerating a regular diet, voiding w/o difficulty and bowel movement; denies diarrhea, blood in stool, nausea, vomiting, shortness of breath or fever Interval history since last seen: Patient hold his cup, drinks on cues, not feeding himself, makes eye contact but has to been reoriented by light touch multiple times, remains pleasant. Exam Narrative Exam Narrative: Constitutional The patient is lying in bed comfortable and pleasnt and cooperative during the interview. The patient is without acute distress HENMT: Head is normocephalic, facial structures with normal appearance Eyes: Well aligned, intact ROM Neck: Normal ROM Neuro:alert and confused. No neurological focal deficit Chest:Chest is symmetrical Resp: Normal respiratory pattern,unlabored breathing, clear lung bilaterally Cardio: regular rhythm, S1, S2, no murmur, bilateral radial and dorsalis pedis pulses are positive GI: Abdomen is large round, not distended, semi-firm and non tender, bowel sounds are present : no bladder distension Back/spine/Pelvis: normal alignment Integumentary:fading bruises, no new one , not expanding Extremities: strength 5/5 to bilateral lower and upper extremities, legs remains spastic Psych: RASS 0, flat affect. Objective Last Vital Signs Temp 36.6 C 01/23/23 08:16 Pulse 64 01/23/23 08:16 Resp 17 01/23/23 08:16 BP 132/77 01/23/23 08:16 Pulse Ox 96 01/23/23 08:16 Laboratory Results - last 24 hr 01/22/23 01/22/23 07:45 17:00 Sodium Cancelled Potassium Cancelled Chloride Cancelled Carbon Dioxide Cancelled Anion Gap Cancelled BUN Cancelled Creatinine Cancelled Est GFR (CKD-EPI 2020) Cancelled Glucose Cancelled Calcium Cancelled Total Bilirubin 1.0 Conjugated Bilirubin 0.2 AST 75 H ALT 61 Alkaline Phosphatase 76 Total Protein 7.8 Albumin 2.8 L Time Spent with Patient Time Spent with Patient: >50 minutes Time was spent: preparing to see the patient(eg.review tests), ordering medications,tests, procedures, referring, communicating with other health career development director, indepentently interpreting results, counseling the patient and c are coordination
[2023-01-23] MEDS: Acetaminophen 500 MG TAB 1000 MG PO (15:24)
[2023-01-23 15:55] VITALS: BP 117/73; PULSE 81; RESP 18; TEMP 37; O2SAT 95
--- NOTE | 2023-01-23 16:31 | PDOC.CMPRO ---
Date of service: 01/23/23 Time of Service: 16:31 Care Management Progress Note Progress Note Text Progress Note Text: S/O: Chris was lying in bed resting when CM met with him. Per report, he is non verbal, therefore he was not able to engage with CM. CM communicated with Letty, Hospice today, who stated that his hospital bed and bedside table will be delivered tomorrow around 11am. CM will plan to set up EMS transport home for Chris tomorrow around 12pm. Hospice will then go to the home for a same day admission, shortly after his discharge. CM talked to Nancy, his daughter in law, who stated that she will plan to be there for the hospice admission. CM will continue to follow. A: Chris is a 77 year old man admitted on 01/13/23 with sepsis. P:Chris will be returning home on hospice tomorrow. [facility] will be delivering the equipment Friday at 11am. CM will coordinate transport for him at around 12pm. His , Jen, will be home for his arrival, and his daughter in law, Nancy, will meet them for the hospice admission, shortly after he arrives. CM will follow and continue to assess for discharge planning concerns.
[2023-01-24 00:21] VITALS: BP 133/71; PULSE 74; RESP 18; TEMP 36.1; O2SAT 95
[2023-01-24 08:01] VITALS: BP 144/65; PULSE 56; RESP 18; TEMP 37; O2SAT 98
[2023-01-24] MEDS: Normal Saline Flush 10 ML SYR IV (08:45)
[2023-01-24] MEDS: Allopurinol 300 MG TAB PO (08:47)
[2023-01-24] MEDS: Aspirin 81 MG CHEW CH (08:49)
[2023-01-24] MEDS: Acetaminophen 500 MG TAB 1000 MG PO (08:49)
[2023-01-24] MEDS: Tamsulosin 0.4 MG CAPCR PO (08:50)
--- NOTE | 2023-01-24 09:41 | CMDISCH_ITS ---
Date of service: 01/24/23 Time of Service: 09:41 LACE Index Scoring Tool Questions: Length of Stay (in days): 7 - 13 Was the patient admitted via the E.D.?: Yes Comorbidities: Dementia E.D. Visits: 1 Answers: Total Score: 12 Risk of Readmission: High Risk Care Management Discharge Plan Reason for Hospitalization: encephalopathy Discharge Plan: Chris will be returning home on hospice. [facility] will be delivering the equipment today at 11am. CM coordinated transport for him at around 12pm with [employer]. His , Jen, will be home for his arrival, and his daughter in law, Nancy, will meet them for the hospice admission, shortly after he arrives. Patient/Family Education Needs: review of discharge instructions, limitations, hospice services, end of life care, discuss Ask me Three Services Needed at Discharge: DME Agency and Home Health Care Services
--- NOTE | 2023-01-24 12:16 | W.PM.DS.N ---
Date of service: 01/24/23 Time of Service: 12:16 DS: Diagnosis Discharge Diagnosis (1) Encephalopathy due to 2019 novel coronavirus: Status: Acute (2) Sepsis due to COVID-19: Status: Resolved (3) Pain: Status: Acute (4) COVID-19: Status: Acute (5) Dementia: Status: Chronic (6) On deep vein thrombosis (DVT) prophylaxis: Status: Acute (7) Hypernatremia: Status: Acute (8) Ecchymosis: Status: Acute (9) Hospice care: Status: Acute (10) Discharge planning issues: Status: Acute Discharge Plan Disposition Patient Disposition: Home W/Hospice Services Condition: Deteriorating Discharge Details Reason For Visit: Sepsis Admit Date/Time: 01/13/23 15:15 Admit Provider: Doug Macias Attending Provider: Doug Macias Primary Care Provider: Unknown,Unknown Hospital Course Hospital Course: Chris is a 77 year old male patient with severe dementia and multiple other medical issues, who was admitted to [facility] on 01/13 with complications from Covid. Patient has not been eating or drinking well. Patient was evaluated by hospice provider who recommends patient be discharged to home hospice. Patient's family agree with this plan of care. Placement to a facility is pending. Of note, patient has a stage 2 pressure injury on his sacrum. Oatient is discharged to home via EMS. Home Meds and New Rx's Prescriptions: Continued morphine concentrate 100 mg/5 mL (20 mg/mL) solution See Rx Instructions PO Q1H PRN MDD 120 mg Qty: 30 0RF Rx Instructions: 0.25-1.0 ml orally every 1 hour, as needed; HOSPICE lorazepam 1 mg tablet 1 mg PO Q4H PRN (Reason: anxiety) Qty: 7 5RF Rx Instructions: hospice tamsulosin 0.4 mg Capsule 0.4 mg PO DAILY allopurinol 300 mg Tablet 300 mg PO DAILY nitroglycerin 0.4 mg Tablet, Sublingual 0.4 mg sublingual PRN PRN aspirin [Adult Aspirin Regimen] 81 mg tablet,delayed release (DR/EC) 81 mg PO DAILY sertraline 50 mg PO DAILY Rx Instructions: orally daily; Discharge Instructions Instructions: Hospice Care (GEN) Additional Instructions: Discharged to home hospice. Medications per hospice provider. Stand Alone Forms: Nursing Discharge Form Activity:: Activity as Tolerated Equipment/Supplies:: No Equipment Needed Diet:: As Tolerated Discharge Orders Discharge Orders: Discharge Order (Routine); Ordered 01/24/23 Ordered By: Kirti Ramos DS: Summary Time Spent with Patient providing and/or coordinating discharge services: Greater than 30 minutes Status at Discharge Functional status at discharge: bed bound Overall status at discharge: other (deteriorating) Mental Status: other Speech and Movement: slowed movement Mood: other Affect: indifferent Exam Narrative Exam Narrative: Constitutional The patient is supine in bed, appears comfortable HENMT: Head is normocephalic, facial structures with normal appearance Eyes: Well aligned, intact ROM Neck: Normal ROM Neuro:alert and confused. Chest: Chest is symmetrical Resp: Normal respiratory pattern,unlabored breathing, lungs clear bilaterally Cardio: regular rhythm, S1, S2 GI: Abdomen soft, non tender, BS present 4 quads : Indwelling urinary catheter, patent Back/spine/Pelvis: normal alignment Integumentary:fading bruises, no new one , not expanding Extremities: strength 5/5 to bilateral lower and upper extremities, legs remains spastic Psych: flat, pleasant Psych Mental Status: other Speech and Movement: slowed movement Mood: other Affect: indifferent DS: Data Vitals/I&O Vitals and I&O: Vital Signs Temperature 37 C 01/24/23 08:01 Temperature Source Tympanic 01/24/23 08:01 Pulse 56 L 01/24/23 08:01 Pulse Rhythm Regular 01/24/23 09:28 Pulse 69 01/13/23 18:31 Respiratory Rate 18 01/24/23 08:01 Respiratory Effort Normal 01/24/23 09:28 Respiratory Depth Normal 01/24/23 09:28 Respiratory Pattern Normal 01/24/23 09:28 Blood Pressure 144/65 H 01/24/23 08:01 Blood Pressure Mean 75 01/16/23 21:33 Blood Pressure Position Right Lateral 01/14/23 04:00 Pulse Oximetry 98 01/24/23 08:01 Oxygen Delivery Method Room Air 01/24/23 08:01 Oxygen Flow Rate 0 01/24/23 08:01 Pain Level 0 01/24/23 08:01 Comment Significant amount of bruising on patient, dark and yellow ones? 01/21/23 22:14 Intake & Output 01/23/23 01/24/23 01/24/23 23:59 11:59 23:59 Intake Total 340 / 440 210 / 210 Output Total 300 / 1000 650 / 650 Balance 40 / -560 -440 / -440 Intake: IV 100 / 200 Oral 240 / 240 210 / 210 Output: Urine 300 / 1000 650 / 650 Other: Urine Color Yellow Yellow Urine Appearance Clear Clear PFSH All Active Problems (Updated 01/24/23 @ 12:34 by Kirti Ramos NP) Encounter for hospice care discussion (Acute) Mixed Alzheimer's and vascular dementia (Acute) FAST 7c for his AD Hypernatremia (Acute) Hospice care (Acute) Ecchymosis (Acute) Pain (Acute) On deep vein thrombosis (DVT) prophylaxis (Acute) Discharge planning issues (Acute) Caregiver stress (Acute) Frailty syndrome in geriatric patient (Acute) Advanced care planning/counseling discussion (Acute) Palliative care encounter (Acute) Encephalopathy due to 2019 novel coronavirus (Acute) Acute on chronic alteration in mental status (Acute) Fever (Acute) COVID-19 (Acute) Knee pain, right (Acute) Abdominal wall lump (Acute) Occlusion and stenosis of unspecified carotid artery (Acute) Short-term memory loss (Acute) Hypokalemia (Acute) Normocytic anemia (Acute) BPH (benign prostatic hyperplasia) (Chronic) GERD (gastroesophageal reflux disease) (Chronic) Dementia (Chronic) CAD (coronary artery disease) (Chronic) Gout (Chronic) Medical History History of hematuria Per [place] notes, negative cystoscopy August 2018 Abdominal aortic aneurysm Per [place] records unchanged on CT/MRI 09/2018, 3.5 cm) Sensorineural hearing loss Essential hypertension Carotid artery stenosis Surgical History History of ventral hernia repair Stented coronary artery Family History (Updated 01/23/23 @ 08:57 by Ilana Guerra MD) Other Dementia Heart disease Hypertension Social History (Updated 01/23/23 @ 08:59 by Ilana Guerra MD) Smoking/Tobacco Use Status: Never Smoking risk assessment performed?: Yes Alcohol Intake: never Drug use: Never Substance use type: does not use Caregiver/Support person: Yes Household members: spouse Housing: house Communication Needs: Hard of Hearing Education Level: high school current occupation: retired Current gender identity: male What is your relationship status?: How often do you talk on the phone with friends or family?: never How often do you get together with friends or relatives?: three or more times per week Panel score (0-1 are the most socially isolated patients): 2 What type of physical activity do you participate in: none and bed-bound Agree to transfusion: No Working smoke detector in home: Yes Fire extinguisher in home: Yes Do you feel safe at home: Yes Do you feel safe in your relationship?: Yes Additional Social history: Lives with , Jen. Son Osmin and daughter in law Nancy help a lot. Decisions are made as a team but Jen has final say. They tend to agree on a plan without conflict. Time Spent with Patient Time Spent with Patient: 45-69 minutes Time was spent: referring, communicating with other health care transitions manager and care coordination
== END 2023-01-24 13:10 | disposition hospice, home (50) | DRG 871 ==
LOC: ER 16:26 → ICU 18:31 → MS 01-17 02:15
PROVIDERS: Family Medicine; Nurse Practitioner Acute Care; Admitting Provider Internal Medicine; Emergency Provider Registered Nurse Emergency; Visit Provider Internal Medicine
DX: U07.1 COVID-19 (principal); G93.49 Other encephalopathy; A41.89 Other specified sepsis; E87.0 Hyperosmolality and hypernatremia; R32 Unspecified urinary incontinence; M25.561 Pain in right knee; I65.29 Occlusion and stenosis of unspecified carotid artery; R41.3 Other amnesia; E87.6 Hypokalemia; D64.9 Anemia, unspecified; N40.0 Benign prostatic hyperplasia without lower urinary tract symptoms; K21.9 Gastro-esophageal reflux disease without esophagitis; I25.10 Atherosclerotic heart disease of native coronary artery without angina pectoris; M1A.9XX0 Chronic gout, unspecified, without tophus (tophi); I71.40 Abdominal aortic aneurysm, without rupture, unspecified; I10 Essential (primary) hypertension; F03.90 Unspecified dementia, unspecified severity, without behavioral disturbance, psychotic disturbance, mood disturbance, and anxiety; S20.212A Contusion of left front wall of thorax, initial encounter; S70.01XA Contusion of right hip, initial encounter; X58.XXXA Exposure to other specified factors, initial encounter; L89.152 Pressure ulcer of sacral region, stage 2; Z95.5 Presence of coronary angioplasty implant and graft
CPT/HCPCS: 00123; 36415; 71250; 80048; 80053; 80076; 83690; 84145; 87040; 87637; 93005; 96365; 96367; 96375; 99285; J1650; 70450; 71045; 81003; 81015; 82607; 82746; 83605; 83735; 84484; 85025; 85610; 85730; 87086; 93010; 99223; 99232; 99233; 99239; J0131; J0248; J0696